=== PATIENT | male | born 1955 | race Caucasian/White ===

== ENCOUNTER 2016-09-27 10:56 | Emergency (ER) | payer OTHER, MEDICARE ==
[~2016-09-27] VITALS: Ht 185.4 cm; Wt 102.1 kg
--- NOTE | 2016-09-27 11:08 | ED GI/GU/ABDOMINAL COMPLAINT ---
History of Present Illness General Chief Complaint: Abdominal Pain/Flank Pain Stated Complaint: ABD PAIN Source: patient, family, old records Exam Limitations: no limitations Vital Signs & Intake/Output Vital Signs & Intake/Output ED Intake and Output 09/28 0000 09/27 1200 Intake Total 1000 Output Total Balance 1000 Intake, IV 1000 Patient 225 lb Weight Weight Reported by Patient Measurement Method Allergies Coded Allergies: NO KNOWN ALLERGIES (01/10/11) Triage Note: PT TO ED, SENT IN BY URGENT CARE FOR C/O ABD PAIN SINCE SUNDAY. PT SENT IN TO [facility]. C/O NAUSEA, NO VOMITING SINCE SUNDAY. DENIES S/S. H/O DIVERTICULITIS. Triage Nurses Notes Reviewed? yes Onset: Abrupt Duration: day(s): (2), constant Timing: recent history Quality/Severity: aching, moderate, sharpness Severity Numbers: 7 Location: right upper quadrant Radiation: back Activities at Onset: none Prior Abdominal Problems: none Modifying Factors: Improves With: other (belching). Associated Symptoms: nausea/vomiting HPI: 61-year-old male with history of diverticulitis hypertension chronic back pain presents to the ER for evaluation later today history of constant not out of 10 deep moderate sharp right upper quadrant pain as read to the right side his back. He states his symptoms came on after eating associated 1 episode of vomiting when the symptoms first began. He states she's had nausea since. No chest pain no shortness of breath. Patient has history of diverticulitis however states feels different. No history of abdominal surgeries. He's been taking Pepto-Bismol without relief. The pain is improved with belching. No changes bowel movements no black or bloody stools no hematemesis. He is a social alcoholic drinker. He denies recent use he denies smoking. No pain with inspiration. (DIVYA ANDERSEN) Reconcile Medications Anastrozole 1 MG TABLET 1 TAB PO DAILY CONTROL HORMONES (Reported) Calcium Carbonate/Vitamin D3 (Calcium 500 + D Tablet) 500 MG-400 TABLET 1 TAB PO DAILY CALCIUM SUPPLEMENT (Reported) Cholecalciferol (Vitamin D3) 1,000 UNIT TABLET 1 TAB PO DAILY VITAMIN SUPPORT (Reported) Ciprofloxacin HCl (Cipro) 500 MG TABLET 1 TAB PO BID DIVERTICULITIS Cyanocobalamin (Vitamin B-12) 1,000 MCG TABLET 1 TAB PO DAILY VITAMIN SUPPORT (Reported) Folic Acid 1 MG TABLET 1 TAB PO DAILY VITAMIN SUPPORT (Reported) Lisinopril 5 MG TABLET 1 TAB PO DAILY BP (Reported) Meloxicam 15 MG TABLET 1 TAB PO DAILY PAIN (Reported) Metronidazole (Flagyl) 500 MG TABLET 1 TAB PO TID DIVERTICULITIS Amoret-3 Fatty Acids/Fish Oil (Fish Oil 1,000 MG Capsule) 340 MG-1,000 MG CAPSULE 1 CAP PO DAILY SUPPLEMENT (Reported) Ondansetron (Zofran Odt) 4 MG TAB.RAPDIS 1 TAB SL TID PRN NAUSEA Oxycodone HCl/Acetaminophen (Oxycodone-Acetaminophen 5-325) 5 MG-325 MG TABLET 1 TAB PO PRN PAIN (Reported) Testosterone Cypionate 200 MG/ML VIAL 0.8 ML IM Q2W HRT (Reported) (PEPE SOSA MD) Past History Travel History Traveled to [place] past 21 day No Medical History Any Pertinent Medical History? see below for history Cardiovascular: hypertension Gastrointestinal: diverticulitis Surgical History Surgical History: non-contributory Psychosocial History What is your primary language Faroese Tobacco Use: Quit >30 days ago ETOH Use: occasional use Illicit Drug Use: denies illicit drug use Family History Hx Contributory? No (DIVYA ANDERSEN) Review of Systems Review of Systems Constitutional: Reports: see HPI. All Other Systems: Reviewed and Negative Comments Review of systems: See HPI, All other systems negative. Constitutional, no chills no fever, no malaise HEENT: No visual changes no sore throat no congestion Cardiovascular: No chest pain , no palpitation Skin: no rashes, no change in skin Respiratory: No dyspnea no cough no sputum no hemoptysis GI: nausea vomiting, no diarrhea, no bloating/constipation : No dysuria No hematuria, no frequency Muscle skeletal: No joint pain, no joint swelling, no back pain, no neck pain, Neurologic: No numbness no confusion, no headache Psych: No stress Heme/endocrine: No bruising Immunology: No lymphadenopathy (DIVYA ANDERSEN) Physical Exam Physical Exam General Appearance: well developed/nourished, alert, awake Gastrointestinal: soft, tenderness Comments: Well-developed well-nourished person in no acute distress HEENT: Normal EENT exam; PERRL, EOMI, HEAD is atraumatic. moist mucous membranes. Neck: Supple, no lymphadenopathy, normal range of motion Back: Nontender, no CVA tenderness. Full range of motion Cardiovascular: Regular rate and rhythms no murmurs rubs Respiratory: Chest nontender.There were no bony deformities, no asymmetry. No respiratory distress. Patient speaking in full complete sentences. Breath sounds clear to auscultation bilaterally: NO W/R/R Abdomen: Soft, ruq tender nondistended, no appreciable organomegaly. Normal bowel sounds. No rebound/guarding, No appreciable enlargement of the abdominal aorta, No ascites. Extremity: No edema, full range of motion of extremities Neuro: Alert oriented x3, motor sensory normal, There were no obvious focal neurologic abnormalities. Skin: No appreciable rash on exposed skin, skin is warm and dry. no jaundice Psych: Mood and affect is normal, memory and judgment is normal. Core Measures ACS in differential dx? Yes Severe Sepsis Present: No Septic Shock Present: No (BALTAZAR PITTMAN,DIVYA) Progress Differential Diagnosis: AAA, AMI, appendicitis, biliary colic, bowel obstruction , colon cancer, cholecystitis, diverticulitis, gastritis, hepatitis, hernia, ischemic bowel, inflamm bowel dis, pancreatitis, peptic ulcer, PUD/GERD, perforated viscous, pyelonephritis, SBO Plan of Care: Orders Procedure Date/time Status Add-on Test (ER Only) 09/27 1502 Active DIRECT BILIRUBIN 09/27 1225 Complete EKG 09/27 1136 Active TROPONIN LEVEL 09/27 1128 Complete LIPASE 09/27 1128 Complete COMPREHENSIVE METABOLIC PANEL 09/27 1128 Complete CBC WITHOUT DIFFERENTIAL 09/27 1128 Complete AMYLASE 09/27 1128 Complete Laboratory Tests 09/27/16 1225: Anion Gap 13, Estimated GFR > 60, BUN/Creatinine Ratio 12.0, Glucose 110 H, Calcium 9.4, Total Bilirubin 1.8 H, Direct Bilirubin 0.6 H, AST 29, ALT 56, Alkaline Phosphatase 49, Troponin I < 0.01, Total Protein 7.7, Albumin 4.6, Globulin 3.1, Albumin/Globulin Ratio 1.5, Amylase 38, Lipase 65, CBC w Diff NO MAN DIFF REQ, RBC 4.42 L, MCV 90.0, MCH 31.7 H, RDW 13.6, MPV 7.3 L, Gran % 83.5 H, Lymphocytes % 8.6 L, Monocytes % 7.6, Eosinophils % 0.1, Basophils % 0.2, Absolute Granulocytes 9.7 H, Absolute Lymphocytes 1.0 L, Absolute Monocytes 0.9 H, Absolute Eosinophils 0, Absolute Basophils 0, PUBS MCHC 35.2 Labs ordered patient medicated with Toradol Pepcid Zofran IV IV fluids ultrasound ordered case discussed with Dr. sosa Patient reports no improvement in symptoms with Toradol morphine 6 MGIV [address] D[address] with DR JARVIS [facility] LABS AND US, advised to get CAT scan without contrast I discussed with the patient at length all of their results. The patient states during his 3 previous episodes of diverticulitis he has been discharged home he is never required admission which she states he feels he does not need today. Prescription for Cipro Flagyl Zofran provided. I had an extensive conversation regarding need for close follow up with their primary care physician this week as well as return precautions. I answered all of their questions, they feel comfortable with the plan and follow-up care. I discussed the medications that they will receive with the patient. I gave them signs and symptoms that could indicate an adverse reaction. I have advised them to limit their activities until they can see how they respond to the medication. (BALTAZAR PITTMAN,DIVYA) Diagnostic Imaging: Viewed by Me: CT Scan, Ultrasound. Discussed w/RAD: CT Scan, Ultrasound. Radiology Impression: PATIENT: DELMY LIM PRESENT AGE: 61 PATIENT ACCOUNT NO: [id number] : 56 LOCATION: [facility] ORDERING PHYSICIAN: DIVYA PITTMAN SERVICE DATE: 09/27/160202 EXAM TYPE: CAT - CT ABD & PELVIS W/O IV CONTRAS EXAMINATION: CT ABDOMEN AND PELVIS WITHOUT CONTRAST CLINICAL INFORMATION: Right upper quadrant abdominal pain radiating into the back. COMPARISON: Abdomen ultrasound of 09/27/2016. Abdomen CT of 11/15/2009. TECHNIQUE: Multidetector volumetric imaging was performed from the superior aspect of the liver through the pubic symphysis. Sagittal and coronal reformatted images were obtained on the technologist's workstation. DLP: 802.96 mGy-cm FINDINGS: LUNG BASES: Small, 2 mm calcified granuloma in the lateral segment of the right middle lobe. The benign, 0.4 cm noncalcified nodule of the right lower lobe remains stable compared to 11/15/2009 (image 103, series 3). Mild atelectasis within lower lobes. LIVER, GALLBLADDER, AND BILIARY TREE: Diffuse hepatic steatosis with relative sparing superior to the gallbladder fossa. The gallbladder is moderately distended. There is no overt edema of the gallbladder wall. Small, 0.2 cm calcified stone is present in the region of the gallbladder neck. No intrahepatic or extra hepatic bile duct dilatation. PANCREAS: Unremarkable. SPLEEN: Unremarkable. ADRENAL GLANDS: Unremarkable. KIDNEYS AND URETERS: Kidneys are normal in size and have normal cortical attenuation. There is a 3 mm calyceal stone of the interpolar left kidney. The ureters are unremarkable. BLADDER: Unremarkable. GASTROINTESTINAL TRACT: Stomach is unremarkable. There are diverticula of the third portion of the duodenum. There is pancolonic diverticulosis as well as mild colonic wall thickening at the hepatic flexure with surrounding pericolonic fat stranding. The colon appears to be the source of inflammation rather than the adjacent gallbladder. The appendix is normal. No ascites or pneumoperitoneum. ABDOMINAL WALL: No significant findings in the abdominal wall. There has been placement of mesh along the lower abdominal wall and covering the inguinal canals. LYMPH NODES: No pathologic sized lymph nodes within the abdomen or pelvis. VASCULAR: Mild atherosclerosis of the abdominal aorta without aneurysm. No retroperitoneal hematoma. PELVIC VISCERA: Prostate gland is normal in size. No pelvic free fluid. OSSEOUS STRUCTURES: Intact posterior spinal fusion hardware from L1 to L3. Old compression fractures of L2 and L5 vertebral bodies. The T12 compression fracture with approximately 50% anterior height loss is new compared to 2009; however, there is no acute fracture lucency within the compressed vertebral body. Chondrocalcinosis of the degenerated lumbar discs. IMPRESSION: 1. Acute diverticulitis of the hepatic flexure of the colon. 2. Cholelithiasis without convincing evidence for acute cholecystitis. The fat stranding adjacent to the gallbladder appears to be arising from the hepatic flexure of the colon. 3. Diffuse hepatic steatosis with focal region of sparing located superior to the gallbladder fossa. 4. Small, 3 mm calculus in the interpolar region of the left kidney. 5. T12 compression fracture is likely subacute or old (but is new compared to 11/15/2009). DICTATED BY: JENNIFER MILES MD DATE/TIME DICTATED:08/11 ROCK DUST SPRAYER:AZAM DATE/TIME TRANSCRIBED:09/27/161419 CONFIDENTIAL, DO NOT COPY WITHOUT APPROPRIATE AUTHORIZATION. <Electronically signed in Other Vendor System> SIGNED BY: JENNIFER MILES MD 09/27/16 1439, PATIENT: DELMY LIM PRESENT AGE: 61 PATIENT ACCOUNT NO: [id number] : 56 LOCATION: [facility] ORDERING PHYSICIAN: DIVYA PITTMAN SERVICE DATE: 09/27/166 EXAM TYPE: US - US-LIMITED ABDOMEN EXAMINATION: US ABDOMEN LIMITED CLINICAL INFORMATION: Right upper quadrant abdominal pain, nausea and vomiting.. COMPARISON: Selected images CT abdomen and pelvis without contrast 10/15/2009 and 11/15/2009. TECHNIQUE: Real-time imaging of the right upper quadrant abdominal viscera. The study was technically limited as the patient could not fully recline for the examination. FINDINGS: PANCREAS: The pancreas is obscured by bowel gas. LIVER: The liver is enlarged measuring 21.2 cm in length. The liver is diffusely echogenic. A hypoechoic region is seen adjacent to the gallbladder measuring 1.7 x 2.1 x 1.8 cm. This was not obvious on prior CT study from 2009. This statistically most likely to reflect focal fatty sparing. No additional liver lesions are seen. No dilatation of the intrahepatic bile ducts. GALLBLADDER: The gallbladder is distended measuring 9.7 x 4.1 x 4.6 cm in size. The gallbladder was also distended on a prior CT from and 11/15/2009. No focal tenderness over the gallbladder. No cholelithiasis or significant echogenic bile is identified. The gallbladder wall measures 5 mm which is mildly thickened. No evidence of pericholecystic fluid. COMMON BILE DUCT: Normal in caliber measuring 0.6 cm in diameter. RIGHT KIDNEY: Normal. No hydronephrosis. No renal calculi or focal parenchymal lesions. The kidney measures 13.0 cm in maximum dimension. FREE FLUID: None. IMPRESSION: 1. Enlarged echogenic liver consistent with hepatic steatosis. The hypoechoic masslike region adjacent to the gallbladder measuring 2.1 cm is most likely reflective of hepatic steatosis. This could be clarified within MRI of the abdomen for further evaluation. 2. The gallbladder is distended. This is not a significant change from prior imaging. The gallbladder wall thickness is at the upper limits of normal in size but there is no evidence of pericholecystic fluid. HIDA scan may be of further value if the patient has continued right upper quadrant pain. 3. The right kidney shows no evidence of hydronephrosis. DICTATED BY: WHITNEY SHAW MD DATE/TIME DICTATED:09/27/161219 ROCK DUST SPRAYER:AZAM DATE/TIME TRANSCRIBED:09/27/161219 CONFIDENTIAL, DO NOT COPY WITHOUT APPROPRIATE AUTHORIZATION. <Electronically signed in Other Vendor System> SIGNED BY: WHITNEY SHAW MD 09/27/16 1237 Initial ED EKG: normal intervals, normal p-waves, normal QRS complex, normal sinus rhythm () Prior EKG: unchanged (2010) Rhythm Strip: normal sinus rhythm (DIVYA ANDERSEN) Departure Departure Time of Disposition: 1450 Disposition: HOME OR SELF CARE Condition: Stable Clinical Impression Primary Impression: Acute diverticulitis Referrals: SHU BURGESS,MENDOZA Andino (PCP/Family) Additional Instructions: CIPRO AND FLAGYL DIRECTED, ZOFRAN IF NEEDED FOR NAUSEA. BLAND DIET, CLEAR LIQUIDS. FOLLOW UP WITH YOUR PMD, RETURN IMMEDIATELY IF YOUR SYMPTOMS PERSIST, YOU DEVELOP FEVER, CHILLS OR ANY CONCERNS Departure Forms: Customer Survey General Discharge Information Prescriptions: Current Visit Scripts Ondansetron (Zofran Odt) 1 TAB SL TID PRN NAUSEA #10 TAB Ciprofloxacin HCl (Cipro) 1 TAB PO BID #14 TAB Metronidazole (Flagyl) 1 TAB PO TID #21 TAB (DIVYA ANDERSEN) PA/WELL SERVICE FLOOR WORKER Co-Sign Statement Statement: ED Attending supervision documentation- x I saw and evaluated the patient. I have also reviewed all the pertinent lab results and diagnostic results. I agree with the findings and the plan of care as documented in the PA's/WELL SERVICE FLOOR WORKER's documentation. [] I have reviewed the ED Record and agree with the PA's/WELL SERVICE FLOOR WORKER's documentation. [] Additions or exceptions (if any) to the PAs/WELL SERVICE FLOOR WORKER's note and plan are summarized below: [] (SHEILA BURGESS,PEPE)
[2016-09-27] MEDS ORDERED: LISINOPRIL5 M1 PO (12:07)
[2016-09-27] MEDS ORDERED: OXYCODONE-ACET1 EACH PO (12:07)
[2016-09-27] MEDS ORDERED: ANASTROZOLE1 M1 PO (12:08)
[2016-09-27] MEDS ORDERED: MELOXICAM15 M1 PO (12:08)
[2016-09-27] MEDS ORDERED: VITAMIN B-121000 MC3 PO (12:08)
[2016-09-27] MEDS ORDERED: FOLIC ACID1 M1 PO (12:08)
[2016-09-27] MEDS ORDERED: VITAMIN D31000 UNI2 PO (12:09)
[2016-09-27] MEDS ORDERED: FISH OIL 1,0001 EACH PO (12:09)
--- NOTE | 2016-09-27 12:37 | ULTRASOUND REPORT ---
EXAMINATION: US ABDOMEN LIMITED CLINICAL INFORMATION: Right upper quadrant abdominal pain, nausea and vomiting.. COMPARISON: Selected images CT abdomen and pelvis without contrast 10/15/2009 and 11/15/2009. TECHNIQUE: Real-time imaging of the right upper quadrant abdominal viscera. The study was technically limited as the patient could not fully recline for the examination. FINDINGS: PANCREAS: The pancreas is obscured by bowel gas. LIVER: The liver is enlarged measuring 21.2 cm in length. The liver is diffusely echogenic. A hypoechoic region is seen adjacent to the gallbladder measuring 1.7 x 2.1 x 1.8 cm. This was not obvious on prior CT study from 2009. This statistically most likely to reflect focal fatty sparing. No additional liver lesions are seen. No dilatation of the intrahepatic bile ducts. GALLBLADDER: The gallbladder is distended measuring 9.7 x 4.1 x 4.6 cm in size. The gallbladder was also distended on a prior CT from 10/20/2009 and 11/15/2009. No focal tenderness over the gallbladder. No cholelithiasis or significant echogenic bile is identified. The gallbladder wall measures 5 mm which is mildly thickened. No evidence of pericholecystic fluid. COMMON BILE DUCT: Normal in caliber measuring 0.6 cm in diameter. RIGHT KIDNEY: Normal. No hydronephrosis. No renal calculi or focal parenchymal lesions. The kidney measures 13.0 cm in maximum dimension. FREE FLUID: None. IMPRESSION: 1. Enlarged echogenic liver consistent with hepatic steatosis. The hypoechoic masslike region adjacent to the gallbladder measuring 2.1 cm is most likely reflective of hepatic steatosis. This could be clarified within MRI of the abdomen for further evaluation. 2. The gallbladder is distended. This is not a significant change from prior imaging. The gallbladder wall thickness is at the upper limits of normal in size but there is no evidence of pericholecystic fluid. HIDA scan may be of further value if the patient has continued right upper quadrant pain. 3. The right kidney shows no evidence of hydronephrosis.
[2016-09-27 12:46] LABS: ABSOLUTE BASOPHIL COUNT 0 /CUMM (0.0-0.2); ABSOLUTE EOSINOPHIL COUNT 0 /CUMM (0.0-0.7); ABSOLUTE GRANULOCYTE CT 9.7 /CUMM (1.4-6.5); ABSOLUTE MONOCYTE COUNT 0.9 /CUMM (0.10-0.60); BASOPHIL % 0.2 % (0.0-2.0); EOSINOPHIL % 0.1 % (0-5); HEMATOCRIT 39.8 % (42-52); MEAN CORPUSCULAR HGB 31.7 PG (27.0-31.0); MEAN CORPUSCULAR HGB CONC 35.2 G/DL (33.0-37.0); MEAN PLATELET VOLUME 7.3 FL (7.4-10.4); PLATELET COUNT 191 /CUMM (130-400); RBC DISTRIBUTION WIDTH 13.6 % (11.5-14.5); RED BLOOD CELL CT 4.42 /CUMM (4.70-6.10); WHITE BLOOD CELL COUNT 11.7 /CUMM (4.8-10.8)
[2016-09-27 12:55] LABS: GRANULOCYTE % 83.5 % (42.2-75.2)
--- NOTE | 2016-09-27 14:39 | CT SCAN REPORT ---
EXAMINATION: CT ABDOMEN AND PELVIS WITHOUT CONTRAST CLINICAL INFORMATION: Right upper quadrant abdominal pain radiating into the back. COMPARISON: Abdomen ultrasound of 09/27/2016. Abdomen CT of 11/15/2009. TECHNIQUE: Multidetector volumetric imaging was performed from the superior aspect of the liver through the pubic symphysis. Sagittal and coronal reformatted images were obtained on the technologist's workstation. DLP: 802.96 mGy-cm FINDINGS: LUNG BASES: Small, 2 mm calcified granuloma in the lateral segment of the right middle lobe. The benign, 0.4 cm noncalcified nodule of the right lower lobe remains stable compared to 11/15/2009 (image 103, series 3). Mild atelectasis within lower lobes. LIVER, GALLBLADDER, AND BILIARY TREE: Diffuse hepatic steatosis with relative sparing superior to the gallbladder fossa. The gallbladder is moderately distended. There is no overt edema of the gallbladder wall. Small, 0.2 cm calcified stone is present in the region of the gallbladder neck. No intrahepatic or extra hepatic bile duct dilatation. PANCREAS: Unremarkable. SPLEEN: Unremarkable. ADRENAL GLANDS: Unremarkable. KIDNEYS AND URETERS: Kidneys are normal in size and have normal cortical attenuation. There is a 3 mm calyceal stone of the interpolar left kidney. The ureters are unremarkable. BLADDER: Unremarkable. GASTROINTESTINAL TRACT: Stomach is unremarkable. There are diverticula of the third portion of the duodenum. There is pancolonic diverticulosis as well as mild colonic wall thickening at the hepatic flexure with surrounding pericolonic fat stranding. The colon appears to be the source of inflammation rather than the adjacent gallbladder. The appendix is normal. No ascites or pneumoperitoneum. ABDOMINAL WALL: No significant findings in the abdominal wall. There has been placement of mesh along the lower abdominal wall and covering the inguinal canals. LYMPH NODES: No pathologic sized lymph nodes within the abdomen or pelvis. VASCULAR: Mild atherosclerosis of the abdominal aorta without aneurysm. No retroperitoneal hematoma. PELVIC VISCERA: Prostate gland is normal in size. No pelvic free fluid. OSSEOUS STRUCTURES: Intact posterior spinal fusion hardware from L1 to L3. Old compression fractures of L2 and L5 vertebral bodies. The T12 compression fracture with approximately 50% anterior height loss is new compared to 11/15/2009; however, there is no acute fracture lucency within the compressed vertebral body. Chondrocalcinosis of the degenerated lumbar discs. IMPRESSION: 1. Acute diverticulitis of the hepatic flexure of the colon. 2. Cholelithiasis without convincing evidence for acute cholecystitis. The fat stranding adjacent to the gallbladder appears to be arising from the hepatic flexure of the colon. 3. Diffuse hepatic steatosis with focal region of sparing located superior to the gallbladder fossa. 4. Small, 3 mm calculus in the interpolar region of the left kidney. 5. T12 compression fracture is likely subacute or old (but is new compared to 11/15/2009).
[2016-09-27] MEDS ORDERED: FLAGYL500 MG PO (14:55)
[2016-09-27] MEDS ORDERED: ZOFRAN ODT4 M1 SL (14:55)
[2016-09-27] MEDS ORDERED: CIPRO500 M1 PO (14:55)
[2016-09-27 15:11] VITALS: BP 135/74
[2016-09-28] MEDS ORDERED: TESTOSTERO200 MG/1 M IM (17:08)
[2016-09-28] MEDS ORDERED: CALCIUM 500 +1 EAC5 PO (17:10)
== END 2016-09-27 15:26 ==
LOC: ERH 10:56
PROVIDERS: Physician Assistant Medical
DX: K57.92 Diverticulitis of intestine, part unspecified, without perforation or abscess without bleeding (principal); I10 Essential (primary) hypertension; Z87.891 Personal history of nicotine dependence
CPT/HCPCS: 74176; 93005; 93010; 96374; 96375; J1885; J2405

== ENCOUNTER 2016-09-28 16:40 | Inpatient (IN) | payer OTHER, MEDICARE ==
[~2016-09-28] VITALS: Ht 185.4 cm; Wt 101.6 kg
[~2016-09-28 16:40] MED LIST: ANASTROZOLE1 M1 PO; CIPRO500 M1 PO; FISH OIL 1,0001 EACH PO; FLAGYL500 MG PO; FOLIC ACID1 M1 PO; LISINOPRIL5 M1 PO; MELOXICAM15 M1 PO; OXYCODONE-ACET1 EACH PO; VITAMIN B-121000 MC3 PO; VITAMIN D31000 UNI2 PO; ZOFRAN ODT4 M1 SL
--- NOTE | 2016-09-28 16:52 | ED GI/GU/ABDOMINAL COMPLAINT ---
History of Present Illness General Chief Complaint: Abdominal Pain/Flank Pain Stated Complaint: SEEN YESTERDAY FOR ABD PAIN/ RECURRENT DIVERTICULI Source: patient, old records Exam Limitations: no limitations Vital Signs & Intake/Output Vital Signs & Intake/Output Vital Signs Date Time Temp Pulse Resp B/P B/P Pulse O2 O2 Flow FiO2 Mean Ox Delivery Rate 09/29 1915 97.8 70 20 122/71 95 Room Air 09/28 1810 101.1 09/28 1750 99 Room Air 09/28 1646 101.1 94 16 159/92 93 Room Air Allergies Coded Allergies: NO KNOWN ALLERGIES (01/10/11) Reconcile Medications Anastrozole 1 MG TABLET 1 TAB PO DAILY CONTROL HORMONES (Reported) Calcium Carbonate/Vitamin D3 (Calcium 500 + D Tablet) 500 MG-400 TABLET 1 TAB PO DAILY CALCIUM SUPPLEMENT (Reported) Cholecalciferol (Vitamin D3) 1,000 UNIT TABLET 1 TAB PO DAILY VITAMIN SUPPORT (Reported) Ciprofloxacin HCl (Cipro) 500 MG TABLET 1 TAB PO BID DIVERTICULITIS Cyanocobalamin (Vitamin B-12) 1,000 MCG TABLET 1 TAB PO DAILY VITAMIN SUPPORT (Reported) Folic Acid 1 MG TABLET 1 TAB PO DAILY VITAMIN SUPPORT (Reported) Lisinopril 5 MG TABLET 1 TAB PO DAILY BP (Reported) Meloxicam 15 MG TABLET 1 TAB PO DAILY PAIN (Reported) Metronidazole (Flagyl) 500 MG TABLET 1 TAB PO TID DIVERTICULITIS [place]-3 Fatty Acids/Fish Oil (Fish Oil 1,000 MG Capsule) 340 MG-1,000 MG CAPSULE 1 CAP PO DAILY SUPPLEMENT (Reported) Ondansetron (Zofran Odt) 4 MG TAB.RAPDIS 1 TAB SL TID PRN NAUSEA Oxycodone HCl/Acetaminophen (Oxycodone-Acetaminophen 5-325) 5 MG-325 MG TABLET 1 TAB PO PRN PAIN (Reported) Testosterone Cypionate 200 MG/ML VIAL 0.8 ML IM Q2W HRT (Reported) Triage Note: PT SEEN YESTERDAY DIAGNOSED WITH DIVERTICULITIS PLACED ON FLAGYL AND CIPRO AND TODAY HER ARRIVES WITH C/O FEVER CHILLS. Triage Nurses Notes Reviewed? yes HPI: Patient is a 61-year-old male presents complaining of worsening diverticulitis. Right-sided abdominal pain onset on Sunday. Patient was seen in the emergency department yesterday, had CT scans, blood work, ultrasound was diagnosed with diverticulitis. Patient was discharged on ciprofloxacin and metronidazole and Percocet. Patient reports that the Percocet has not been significantly helping with his pain. Today patient developed fevers. Associated malaise and generalized weakness. Patient had a bowel movement this morning which was normal. Patient denies vomiting or urinary symptoms. (GABRIELA ZUNIGA) Past History Travel History Traveled to [place] past 21 day No Medical History Any Pertinent Medical History? see below for history Cardiovascular: hypertension Gastrointestinal: diverticulitis Surgical History Surgical History: non-contributory Psychosocial History What is your primary language Sami Tobacco Use: Quit >30 days ago ETOH Use: occasional use Illicit Drug Use: denies illicit drug use Family History Hx Contributory? No (GABRIELA ZUNIGA) Review of Systems Review of Systems Constitutional: Reports: chills, fever, malaise, weakness. EENTM: Reports: no symptoms. Respiratory: Denies: cough, short of breath. Cardiovascular: Denies: chest pain. GI: Reports: see HPI. Genitourinary: Reports: no symptoms. Musculoskeletal: Reports: back pain. Skin: Reports: no symptoms. Neurological/Psychological: Reports: no symptoms. Hematologic/Endocrine: Reports: no symptoms. Immunologic/Allergic: Reports: no symptoms. (GABRIELA ZUNIGA) Physical Exam Physical Exam General Appearance: well developed/nourished, alert, awake Head: atraumatic, normal appearance Eyes: Bilateral: normal appearance, PERRL, EOMI. Ears, Nose, Throat, Mouth: hearing grossly normal, moist mucous membrane Neck: normal inspection, supple, full range of motion Respiratory: normal breath sounds, chest non-tender, no respiratory distress, lungs clear Cardiovascular: regular rate/rhythm Gastrointestinal: normal bowel sounds, soft, right upper abdominal tenderness with guarding. Negative McBurney's point tenderness Back: normal inspection, normal range of motion, no vertebral tenderness, no CVA tenderness Extremities: normal range of motion Neurologic/Psych: no motor/sensory deficits, awake, alert, oriented x 3, normal gait, normal mood/affect Skin: intact, normal color, warm/dry Core Measures ACS in differential dx? No Severe Sepsis Present: No Septic Shock Present: No (GABRIELA ZUNIGA) Progress Differential Diagnosis: cholecystitis, diverticulitis, ischemic bowel, pancreatitis, perforated viscous, intra-abdominal abscess, cholangitis Plan of Care: Orders Procedure Date/time Status Nothing by Mouth 09/29 B Active HIDA SCAN 09/29 0800 Active CBC WITHOUT DIFFERENTIAL 09/29 0600 Active BASIC ELECTROLYTES PLUS BUN&CR 09/29 0600 Active Clear Liquid Diet 09/28 D Complete LACTIC ACID 09/[address] ABD & PELVIS W/O IV CONTRAS 09/28 1917 Active Add-on Test (ER Only) 09/28 1846 Active Pathway - chart 09/28 1807 Active Saline Lock 09/28 180 Active Pathway - chart 09/28 180 Active House Staff 09/28 1802 Active Patient Data 09/28 1735 Active ED Holding Orders 09/28 1732 Active Admit to inpatient 09/28 1732 Active Vital Signs 09/28 1732 Active Code Status 09/28 1732 Active LIPASE 09/28 1722 Active DIRECT BILIRUBIN 09/28 1722 Active BLOOD CULTURE 09/28 1704 Active LACTIC ACID 09/28 1704 Active COMPREHENSIVE METABOLIC PANEL 09/28 1704 Active CBC WITHOUT DIFFERENTIAL 09/28 1704 Complete VTE Mechanical Prophylaxis 09/28 UNK Active Heat/Cold Therapy 09/28 UNK Active Current Medications Sig/Fanny Start time Last Medication Dose Stop Time Status Admin Ceftriaxone Sodium 1,000 MG DAILY 09/29 1000 UNVr (Rocephin) Metronidazole 500 MG IQ8 09/29 0000 UNVr (Flagyl) N/A 1 UNIT (No Carrier) Heparin Sodium 5,000 UNIT Q8 09/28 2200 UNVr (Porcine) Polyethylene Glycol 17 GM AT BEDTIME 09/28 2200 UNVr (Miralax) Senna/Docusate Sodium 2 TAB AT BEDTIME 09/28 2200 UNVr (Senokot S) Acetaminophen 1,000 MG Q8P PRN 09/28 1815 UNVr (Ofirmev) Diphenhydramine HCl 25 MG Q6P PRN 09/28 1815 UNVr (Benadryl) Hydromorphone HCl 0.5 MG Q3P PRN 09/28 181 UNVr (Dilaudid) Ondansetron HCl 4 MG Q6P PRN 09/28 181 UNVr (Zofran) Sodium Chloride 1,000 ML .Q10H 09/28 1800 UNVr (Normal Saline 0.9%) Laboratory Tests 09/28/16 1722: Anion Gap 14, Estimated GFR > 60, BUN/Creatinine Ratio 10.0, Glucose 134 H, Lactic Acid 0.7, Calcium 8.9, Total Bilirubin 3.0 H, Direct Bilirubin Pending, AST 80 H, ALT 101 H, Alkaline Phosphatase 63, Total Protein 7.4, Albumin 4.3, Globulin 3.1, Albumin/Globulin Ratio 1.4, Lipase Pending, CBC w Diff NO MAN DIFF REQ, RBC 4.26 L, MCV 91.0, MCH 31.7 H, RDW 13.5, MPV 7.4, Gran % 82.6 H, Lymphocytes % 6.1 L, Monocytes % 10.7 H, Eosinophils % 0.4, Basophils % 0.2, Absolute Granulocytes 9.9 H, Absolute Lymphocytes 0.7 L, Absolute Monocytes 1.3 H, Absolute Eosinophils 0.1, Absolute Basophils 0, PUBS MCHC 34.8 Microbiology 09/28 1754 BLOOD: Blood Culture - RECD 09/28 1720 BLOOD: Blood Culture - RECD Results from yesterday reviewed. Plan for repeat labs, IV antibiotics, IV fluids, pain control. If patient remains hemodynamically stable and nontoxic appearing then plan to defer repeat imaging as patient had CT scan and ultrasound yesterday. 09/28/2016 5:25:29 PM: Discussed with Dr. Corcoran. Discussed with Dr. Scott for admission. Bilirubin elevated, no cholelithiasis on ultrasound yesterday. House staff ordered HIDA scan for patient for further evaluation. (GABRIELA ZUNIGA) Initial ED EKG: none (GABRIELA ZUNIGA) Departure Departure Disposition: HOME OR SELF CARE Condition: Stable Clinical Impression Primary Impression: Acute diverticulitis Secondary Impressions: Elevated bilirubin Referrals: SHU BURGESS,MENDOZA Andino (PCP/Family) Departure Forms: Customer Survey General Discharge Information Admission Note Spoke With: RAMO SCOTT MD Documentation of Exam: Documentation of any treatments & extenuating circumstances including Concerns Regarding Discharge (functional status, medication knowledge or non-compliance, living conditions, etc.) that warrant an admission rather than observation: IV antibiotics, IV fluids, serial abdominal exams. If patient is not clinically improving by tomorrow(or at any time shows deterioration in clinical status) then would recommend repeat CT scan. Possible GI consultation, possible surgical consultation depending on clinical condition. (GABRIELA ZUNIGA) PA/SENIOR TAX ACCOUNTANT Co-Sign Statement Statement: ED Attending supervision documentation- [] I saw and evaluated the patient. I have also reviewed all the pertinent lab results and diagnostic results. I agree with the findings and the plan of care as documented in the PA's/SENIOR TAX ACCOUNTANT's documentation. [X] I have reviewed the ED Record and agree with the PA's/SENIOR TAX ACCOUNTANT's documentation. [] Additions or exceptions (if any) to the PAs/SENIOR TAX ACCOUNTANT's note and plan are summarized below: [] (TUYET CORCORAN DO
[2016-09-28] MEDS ORDERED: TESTOSTERO200 MG/1 M IM (17:08)
[2016-09-28] MEDS ORDERED: CALCIUM 500 +1 EAC5 PO (17:10)
[2016-09-28 17:33] LABS: ABSOLUTE BASOPHIL COUNT 0 /CUMM (0.0-0.2); ABSOLUTE EOSINOPHIL COUNT 0.1 /CUMM (0.0-0.7); ABSOLUTE GRANULOCYTE CT 9.9 /CUMM (1.4-6.5); ABSOLUTE LYMPH COUNT 0.7 /CUMM (1.2-3.4); ABSOLUTE MONOCYTE COUNT 1.3 /CUMM (0.10-0.60); BASOPHIL % 0.2 % (0.0-2.0); EOSINOPHIL % 0.4 % (0-5); GRANULOCYTE % 82.6 % (42.2-75.2); HEMATOCRIT 38.8 % (42-52); MEAN CORPUSCULAR HGB 31.7 PG (27.0-31.0); MEAN CORPUSCULAR HGB CONC 34.8 G/DL (33.0-37.0); MEAN PLATELET VOLUME 7.4 FL (7.4-10.4); PLATELET COUNT 181 /CUMM (130-400); RBC DISTRIBUTION WIDTH 13.5 % (11.5-14.5); RED BLOOD CELL CT 4.26 /CUMM (4.70-6.10)
--- NOTE | 2016-09-28 18:47 | RADIOLOGY REPORT ---
EXAMINATION: XR ABDOMEN CLINICAL INDICATION: Diverticulitis. Assess for intra-abdominal free air. COMPARISON: CT abdomen and pelvis 09/27/2016. TECHNIQUE: AP view of the abdomen. FINDINGS: Nonspecific bowel gas pattern, without findings indicative of small bowel obstruction or ileus. Limited evaluation for free intra-abdominal air given lack of inclusion of the bilateral lung bases. No acute osseous abnormality. No visible destructive osseous lesions. IMPRESSION: Nonspecific bowel gas pattern, without findings indicative of small bowel obstruction or ileus. Limited evaluation for free intraperitoneal air given lack of inclusion of the bilateral lung bases and erect view of the abdomen.
--- NOTE | 2016-09-28 18:59 | History & Physical ---
JIMENEZ BURGESS,MOHSEN 09/28/16 1834: General Information and HPI History of Present Illness: 61 year old man with significant past medical history of diverticulosis/ diverticulitis seen for evaluation of severe abdominal pain with associated headache, fever, chills, nausea, shortness of breath, and vomiting. Patient was seen in the [place] ED yesterday for the same symptoms for which was evaluated with a CT Abd/pelvis and Abdominal ultrasound that identified acute diverticulitis. Patient was discharged to home with oral ciprofloxacin/ metronidazole and percocet. He awoke this morning feeling worse for which he came to the [place] ED for evaluation. Presently he reports 10/10 epigastric/right upper quadrant abdominal pain radiating around his right side to his back with associated symptoms as noted above. He notes one episode of nonbloody bilious vomiting this past sunday and has had decreased oral intake since this time. He has one loose bowel movement today that was brown and nonbloody, but admittedly loose. He denies any recent travel or consumption of raw/undercooked meat; however he does go fishing and consumes what he catches after cooking. Otherwise he denies any blurred/double vision, lightheadedness/dizziness, chest pain, palpitations, cough. Past medical history- diverticulosis/recurrent diverticulitis, low testosterone, osteopenia, chronic back pain s/p repair, bilateral inguinal hernia s/p repair, kidney stones, and hypertension Social History - smoked 4-5 cigars per day and inhaled about 20 years ago now only an occasional smoker, drinks one beer and two shots per day, lives at home with his and dog, currently disabled due to his low back injury, eats a paleo diet of lean meats with little fiber Allergies/Medications Allergies: Coded Allergies: NO KNOWN ALLERGIES (01/10/11) Home Med list Anastrozole 1 MG TABLET 1 TAB PO DAILY CONTROL HORMONES (Reported) Calcium Carbonate/Vitamin D3 (Calcium 500 + D Tablet) 500 MG-400 TABLET 1 TAB PO DAILY CALCIUM SUPPLEMENT (Reported) Cholecalciferol (Vitamin D3) 1,000 UNIT TABLET 1 TAB PO DAILY VITAMIN SUPPORT (Reported) Ciprofloxacin HCl (Cipro) 500 MG TABLET 1 TAB PO BID DIVERTICULITIS Cyanocobalamin (Vitamin B-12) 1,000 MCG TABLET 1 TAB PO DAILY VITAMIN SUPPORT (Reported) Folic Acid 1 MG TABLET 1 TAB PO DAILY VITAMIN SUPPORT (Reported) Lisinopril 5 MG TABLET 1 TAB PO DAILY BP (Reported) Meloxicam 15 MG TABLET 1 TAB PO DAILY PAIN (Reported) Metronidazole (Flagyl) 500 MG TABLET 1 TAB PO TID DIVERTICULITIS Crosby-3 Fatty Acids/Fish Oil (Fish Oil 1,000 MG Capsule) 340 MG-1,000 MG CAPSULE 1 CAP PO DAILY SUPPLEMENT (Reported) Ondansetron (Zofran Odt) 4 MG TAB.RAPDIS 1 TAB SL TID PRN NAUSEA Oxycodone HCl/Acetaminophen (Oxycodone-Acetaminophen 5-325) 5 MG-325 MG TABLET 1 TAB PO PRN PAIN (Reported) Testosterone Cypionate 200 MG/ML VIAL 0.8 ML IM Q2W HRT (Reported) Past History Travel History Traveled to [place] past 21 day No Medical History Cardiovascular: hypertension Gastrointestinal: diverticulitis Renal: Kidney stones Musculoskeletal: chronic back pain, Osteopenia Endocrine: low testosterone Surgical History Surgical History: hernia repair-inguinal, spinal fusion Past Family/Social History Psychosocial History Where do you live? Home Who Do You Live With? spouse Smoking Status: Current Some Day Smoker ETOH Use: occasional use Illicit Drug Use: denies illicit drug use Review of Systems Review of Systems Constitutional: Reports: see HPI. Exam & Diagnostic Data Last 24 Hrs of Vital Signs/I&O Vital Signs Date Time Temp Pulse Resp B/P B/P Pulse O2 O2 Flow FiO2 Mean Ox Delivery Rate 09/28 1916 97.8 70 20 122/71 95 Room Air 09/28 1810 101.1 09/28 1750 99 Room Air 09/28 1646 101.1 94 16 159/92 93 Room Air Physical Exam General Appearance Alert, Oriented X3, Cooperative, No Acute Distress HEENT Atraumatic, EOMI, Mucous Membr. moist/pink Neck Supple Cardiovascular Regular Rate, Normal S1, Normal S2, No Murmurs Lungs Clear to Auscultation, Normal Air Movement Abdomen Normal Bowel Sounds, Soft, No Hepatospenomegaly, No Masses, Diffuse abdominal tenderness with severe RUQ tenderness, weinberg negative, no guarding/ rigidity Neurological Normal Speech, Normal Tone, Cranial Nerves 3-12 NL Extremities No Clubbing, No Cyanosis, No Edema, Normal Pulses, No Tenderness/ Swelling Vascular Normal Pulses, Pulses Symmetrical Last 24 Hrs of Labs/Heath: Laboratory Tests 09/28/16 2004: Lactic Acid Cancelled 09/28/16 1722: Anion Gap 14, Estimated GFR > 60, BUN/Creatinine Ratio 10.0, Glucose 134 H, Lactic Acid 0.7, Calcium 8.9, Total Bilirubin 3.0 H, Direct Bilirubin Pending, AST 80 H, ALT 101 H, Alkaline Phosphatase 63, Total Protein 7.4, Albumin 4.3, Globulin 3.1, Albumin/Globulin Ratio 1.4, Lipase Pending, CBC w Diff NO MAN DIFF REQ, RBC 4.26 L, MCV 91.0, MCH 31.7 H, RDW 13.5, MPV 7.4, Gran % 82.6 H, Lymphocytes % 6.1 L, Monocytes % 10.7 H, Eosinophils % 0.4, Basophils % 0.2, Absolute Granulocytes 9.9 H, Absolute Lymphocytes 0.7 L, Absolute Monocytes 1.3 H, Absolute Eosinophils 0.1, Absolute Basophils 0, PUBS MCHC 34.8 Microbiology 09/28 175 BLOOD: Blood Culture - RECD 09/29 1719 BLOOD: Blood Culture - RECD Diagnostic Data Other Results SERVICE DATE: 09/28/16 EXAM TYPE: CAT - CT ABD & PELVIS W/O IV CONTRAS IMPRESSION: 1. Acute diverticulitis of the hepatic flexure the colon. The pericolonic inflammatory changes are mildly worse since prior CAT scan but there is no perforation, now obstruction and no abscess. 2. Nonobstructive left renal stones. 3. Cholelithiasis. 4. Mild hepatic steatosis. 5. 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 SERVICE DATE: 09/28/16 EXAM TYPE: RAD - [id number] VIEW IMPRESSION: Nonspecific bowel gas pattern, without findings indicative of small bowel obstruction or ileus. Limited evaluation for free intraperitoneal air given lack of inclusion of the bilateral lung bases and erect view of the abdomen. Assessment/Plan Assessment: 61 year old man with mutliple medical problems significant for recurrent diverticulitis seen for evaluation of abdominal pain and multiple associated complaints. Patient was identified to have diverticulitis by imaging when initially evaluated in the ED yesterday via CT/US imaging. Patient has had less than one day of oral antibiotic therapy, however is now presenting with worsening abdomial pain and fever. He is to be admitted to the general medicine floor for further evaluation and care. Acute Diverticulitis / Sepsis Patient with history of diverticulosis/diverticulitis seen in the ED the day prior to admission and diagnosed with diverticulitis via CT/US imaging. He was discharged to home on oral ciprofloxacin/flagyl but returned 24 hours later with worsening abdominal pain and fever. Patient meets criteria for sepsis by temperature, leukocytosis, and active infection. Patient had a colonoscopy on by Dr. Pride that identified diverticulosis and was otherwise within normal limits. Vitals initially signifcant for temp 101.1, BP 159/92. Significant labs WBC 12.0, Hgb/Hct 13.5/38.8, T. bili 3.0(up from 1.8 yesterday) , Lactic acid normal. CT abdomen/pelvis demonstrated acute diverticulitis. Abdominal X-ray was within normal limits. Clinically patient continues to have an atypical presentation of diverticulitis in the right colon with associated sepsis. -General Medicine -NPO, advance as tolerated -NS @ 100mL/hr -Ceftriaxone 1g IV Daily -Flagyl 500mg IV Q8H Transaminitis / Elevated bilirubin Abdominal Ultrasound on 09/27/16 demonstrated and enlarged echogenic liver consistent with hepatic steatosis and a hypoechoic mass and a distended gallbladder. CT scan today and yesterday further commment on a distended gallbladder without evidence of cholecystitis. Liver function tests the day prior to admission were normal. Bilirubin was previously 1.8, now 3.0. -HIDA scan in AM Current Everyday Consumption of Alcohol Patient admits to drinking one beer and 1-2 shots each day. -[facility] protocol -Ativan PRN per [facility] Low Testosterone / Osteopenia -Anastrozole 1mg PO Daily (ON HOLD) Chronic Low Back Pain Patient of pain management physican Dr. Dennis of [place]. -Meloxicam 15mg PO Daily (ON HOLD) -Percocet 1 TAB PO TID Hypertension-Lisinopril 5mg PO Daily (ON HOLD) Pain Plan-Acetaminophen/Morphine/Dilaudid Bowel Regimen-Senna/Miralax Diet-NPO DVT PPx-Subcutaneous Heparin Code Status-FULL CODE As Ranked By This Provider Problem List: 1. Elevated bilirubin 2. Acute diverticulitis Core Measures/Miscellaneous Acute Coronary Syndrome ACS Diagnosis: No Cerebrovascular Accident CVA/TIA Diagnosis: No Congestive Heart Failure CHF Diagnosis: No Venous Thromboembolism VTE Risk Factors: Acute medical illness, Age > 40, Estrogen, Smoking [facility] prophylaxis d/t: No contraindications No VTE Pharm Prophylaxis d/t: No contraindications VTE Diagnosis: No VTE Type: NONE VTE Confirmed by (Test): NONE Severe Sepsis Severe Sepsis Present: No Septic Shock Septic Shock Present: No Miscellaneous Documentation Attending Case Discussed With: STANFORD AUSTIN MD Primary Care Physician: SHU BURGESS,MENDOZA Andino Patient sees these Specialists Dr. Dennis (Pain Management) Dr. Munoz (Spot Welder) Dr. Pride (GI) Level of Patient Care: General Medicine JULIANNA BURGESS,SUZETTE 09/28/16 4119: Resident Review Statement Resident Statement: examined this patient, discussed with general internal medicine physician, agreed with general internal medicine physician, discussed with family, reviewed EMR data (avail), discussed with nursing , discussed with case mgmt, reviewed images, amended to note Other Findings: Dc is 61-year-old man with a medical history of hypertension dyslipidemia, fatigue secondary to? Male hypogonadism on testosterone replacement therapy and aromatase inhibitor (anastrozole) who presents with four-day history of right sided abdominal pain localized to the right upper quadrant and radiates to the flank, subjective chills who has sought medical attention ER yesterday and was prescribed Percocet, oral Flagyl and ciprofloxacin. The patient symptoms got worse he began having subjective fevers and progressive abdominal discomfort. Accompanied by some nausea without emesis. On September 27 CAT scan of the abdomen and pelvis demonstrated acute diverticulitis of the hepatic flexure of the colon. There is cholelithiasis without evidence for acute cholecystitis, and diffuse hepatic steatosis. A right upper quadrant ultrasound was also obtained to evaluate for acute cholecystitis. It showed an enlarged echogenic liver consistent with hepatic steatosis, and a distended gallbladder. The gallbladder wall thickness was at the upper limits of normal. At present the Patient himself is not acute or toxic ill-appearing. He is awake alert oriented appears relatively comfortable. He is a good historian. He does not have an acute abdomen. There does have discomfort globally but most concentrated in the right upper quadrant area as well as the right lower quadrant. He is febrile with a MAXIMUM TEMPERATURE of 101.4F he does have a leukocytosis. Remainder of labs are still pending. At this point I'm not sure I would characterize as failure of outpatient therapy. Most likely cause of the fever is the diverticulitis, however he does have small 0.2 cm calcified stone present in the region of the gallbladder neck-it should be noted that this is not visualized on ultrasound. Does not have any biliary ductal dilation. Do not suspect ischemia at this time, however it should be noted the patient is on hormone placement therapy. He does socially drink alcohol, no hx of withdrawal. Currently not in withdrawal. - Problems - Abdominal pain secondary to diverticulitis,? Acute cholecystitis Male hypogonadism Dyslipidemia Hypertension Hx of etoh use - Plan - Begin ceftriaxone 1 g IV every 24 hours, metronidazole 500 mg IV every 8 hours Awaiting blood cultures AXR ?intraabdominal air CMP is pending Check HIDA scan when available Repeat CT Abd/pelv to further characterize GB. Consider surgical evaluation NPO; hold oral medications for now Supportive therapy with intravenous Tylenol for mild/moderate pain, Dilantin for severe pain, aggressive bowel regimen to prevent constipation, normal saline at 100 mL an hour Ciwa/Ativan DVT prophylaxis heparin Full code [email or web address] 09/29/16 0643: Attending MD Review Statement Attending Statement Attending MD Statement: examined this patient, discuss w/resident/PA/[employer] DEVELOPER, agreed w/resident/PA/[employer] DEVELOPER, discussed with family, reviewed EMR data (avail), reviewed images, amended to note Attending Assessment/Plan: CC: Right-sided abdominal pain PMH: HTN, HLD, Patient came to ER yesterday for right-sided abdominal pain, CT abdomen and ultrasound abdomen was obtained, which suggested distended gallbladder and possible diverticulitis, was sent home on Flagyl and Cipro. he comes back for persistent abdominal pain and fever. Vitals: Tmax 101.1, HR 94, RR 16, blood pressure 159/92, saturating well on room air On exam: A O 3, cooperative, no acute distress, neck supple, JVD normal, no lymphadenopathy, mucosa dry, no focal neurological deficit, no dependent edema, no obvious skin rashes or inflammation CVS: S1-S2, RRR. RS: Clear to auscultate bilaterally. Abdomen: right upper quadrant and flank Tender, voluntary guarding, probable Weinberg's sign positive, ND, bowel sounds present. Labs: WBC 12.0, neutrophils 82%, lactate 0.7, BUN 10, creatinine 1.0, bilirubin 3.0, AST 80, ALT 101 CT abdomen without contrast 1. Acute diverticulitis of the hepatic flexure the colon. The pericolonic inflammatory changes are mildly worse since prior CAT scan but there is no perforation, now obstruction and no abscess. 2. Nonobstructive left renal stones. 3. Cholelithiasis. 4. Mild hepatic steatosis. 5. 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 A and P Patient comes with persistent right-sided abdominal pain, fever, chills, Increased WBC, bilirubin, transaminases as compared to yesterday. He is tender on palpation, given worsening symptoms CT abdomen was obtained again which does not show any signs of perforation, abscess, he does not show any signs of cholecystitis. But positive Weinberg sign, personally reviewed CT films: Distended gallbladder + Hepatic diverticulitis + Rule out cholecystitis + Sepsis - Admit to general medicine - Continue gentle hydration - Nothing by mouth, - HIDA scan in a.m. - Continue ceftriaxone and metronidazole IV - Surgical evaluation if worsening symptoms - Pain management - Repeat CBC, BMP, LFT in a.m. - When necessary Ativan according to [facility] protocol - Hold lisinopril and meloxicam
[2016-09-28 19:16] VITALS: BP 122/71
--- NOTE | 2016-09-28 20:18 | CT SCAN REPORT ---
EXAMINATION: CT ABDOMEN AND PELVIS WITHOUT CONTRAST CLINICAL INFORMATION: Diverticulitis. COMPARISON: None TECHNIQUE: Multidetector volumetric imaging was performed from the superior aspect of the liver through the pubic symphysis. Sagittal and coronal reformatted images were obtained on the technologist's workstation. DLP: 525.43 mGy-cm FINDINGS: LUNG BASES: The visualized lung bases are unremarkable. LIVER, GALLBLADDER, AND BILIARY TREE: Mild low attenuation of liver parenchyma due to fatty change. No focal hepatic lesion or biliary ductal dilatation is present. 3 mm calcified stone in the neck of the gallbladder. The gallbladder is distended. No edema of the gallbladder wall. No bile duct dilatation. Extrahepatic CBD measures 5 mm. PANCREAS: Unremarkable. SPLEEN: Unremarkable. ADRENAL GLANDS: Unremarkable. KIDNEYS AND URETERS: There are 3 small stones in the left kidney which are nonobstructive. There is a stone in the upper pole and 2 in the midpole. These measure about 1 mm. No stone seen in the right kidney. No ureteral stone. No hydronephrosis of either kidney. BLADDER: Unremarkable. GASTROINTESTINAL TRACT: There are scattered diverticula of the colon. The diverticula are most numerous in the left colon sigmoid. There is inflammation however of diverticula at the hepatic flexure consistent with diverticulitis. There is mild asymmetric bowel wall thickening associated with inflammation. There is pericolonic edema. No perforation of bowel. No free air. No abscess. Compared to the CAT scan of 09/27/2016 the pericolonic inflammation of the diverticulitis is mildly worse. No obstruction. The appendix is normal. Small bowel loops are normal. Small hiatal hernia. There is a diverticulum in the third portion of the duodenum. ABDOMINAL WALL: No significant hernia is appreciated. LYMPH NODES: Normal. VASCULAR: Scattered vascular calcifications of aorta and iliac vessels. No aneurysm. PELVIC VISCERA: Prostate measures 5.2 cm transverse. OSSEOUS STRUCTURES: Status post fusion with transpedicular screws from L1 through L3. Compression deformity of T12 with about 50% loss of height of the vertebrae. Compression deformity of L2 with about 40% loss of height. Anterior wedge compression deformity of L5 with about 30% loss of height of the vertebrae. No change since prior CAT scan 09/27/2016 IMPRESSION: 1. Acute diverticulitis of the hepatic flexure the colon. The pericolonic inflammatory changes are mildly worse since prior CAT scan but there is no perforation, now obstruction and no abscess. 2. Nonobstructive left renal stones. 3. Cholelithiasis. 4. Mild hepatic steatosis. 5. 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
[2016-09-28 21:35] VITALS: BP 144/84
[2016-09-29 01:16] VITALS: BP 142/78
--- NOTE | 2016-09-29 06:01 | PN- Housestaff ---
MOHSEN GAONA MD 09/29/16 0601: Subjective Follow-up For: Diverticulitis Subjective: Patient seen and examined. He is seen lying flat resting comfortably. He appears to be in no acute distress. He reports multiple lose bowel yellow bowel movements overnight. His abdominal pain is improved to about a 5/10. Otherwise he feels fine and has no new subjective complaints. Otherwise he denies any headache, fever, chills, chest pain, palpitations, shortness of breath, nausea, vomiting, diarrhea. No overnight events reported. Review of Systems Constitutional: Reports: see HPI. Objective Last 24 Hrs of Vital Signs/I&O Vital Signs Date Time Temp Pulse Resp B/P B/P Pulse O2 O2 Flow FiO2 Mean Ox Delivery Rate 09/29 0622 99.3 78 20 140/86 93 Room Air 09/29 0116 98.8 73 20 142/78 09/28 2135 144/84 09/28 2114 98.8 73 20 95 Room Air 09/28 2003 96.8 09/28 191 97.8 70 20 122/71 09/28 1916 97.8 70 20 122/71 95 Room Air 09/28 1810 101.1 09/28 1750 99 Room Air 09/28 1646 101.1 94 16 159/92 93 Room Air Intake & Output 09/29 1600 09/29 0800 09/29 0000 Intake Total 820 650 Output Total 150 Balance 820 500 Intake, IV 800 300 Intake, Oral 20 350 Number 1 Bowel Movements Output, Urine 150 Patient 102.058 kg Weight Weight Reported by Patient Measurement Method Physical Exam General Appearance: Alert, Oriented X3, Cooperative, No Acute Distress Other Physical Findings: General- well developed, well nourished middled aged man in no acute distress HEENT- NCAT, EOMI, PERRL, anicteric sclera CVS- S1, S2 w/o m/g/r Resp- CTA bilaterally GI- Soft, mild diffuse tenderness, nondistended, bowel sounds intact Neuo- Awake and alert, CN II-XII grossly intact Ext- normal pulses, no cyanosis/clubbing/edema Current Medications: Current Medications Sig/Fanny Start time Last Medication Dose Route Stop Time Status Admin Acetaminophen 1,000 MG Q8P PRN 09/28 1814 AC IV Acetaminophen 0 .STK-MED ONE 05/04 1810 DC IV Acetaminophen 1,000 MG ONCE ONE 09/28 1714 DC 09/28 N/A 1 UNIT IV 09/28 1729 1810 Ampicillin Sodium/ 0 .STK-MED ONE 09/28 181 DC Sulbactam Sodium .ROUTE Ampicillin Sodium/ 3,000 MG ONCE ONE 09/28 171 DC 09/28 Sulbactam Sodium IV 09/28 1744 1840 Sodium Chloride 100 ML Ceftriaxone Sodium 1,000 MG DAILY 09/29 1000 AC IV Diphenhydramine HCl 25 MG Q6P PRN 09/28 181 AC IV Heparin Sodium 5,000 UNIT Q8 09/28 2200 AC 09/29 (Porcine) SC 0625 Hydromorphone HCl 0.5 MG Q3P PRN 09/28 181 AC 09/29 IV 0624 Lorazepam 0 Q1P PRN 09/28 1945 AC 09/29 IV 0123 Metronidazole 500 MG IQ8 09/29 0000 AC 09/29 N/A 1 UNIT IV 0850 Morphine Sulfate 0 .STK-MED ONE 09/28 181 DC .ROUTE Morphine Sulfate 6 MG ONCE ONE 09/28 1714 DC 09/28 IV 09/28 1716 1807 Ondansetron HCl 4 MG Q6P PRN 09/28 181 AC IV Polyethylene Glycol 17 GM AT BEDTIME 09/28 2199 AC PO Senna/Docusate Sodium 2 TAB AT BEDTIME 09/28 220 AC PO Sodium Chloride 1,000 ML .Q10H 09/28 1800 AC 09/29 IV 0624 Sodium Chloride 1,000 ML BOLUS ONE 09/28 1714 DC 09/28 IV 09/28 181 1745 Last 24 Hrs of Lab/Heath Results Last 24 Hrs of Labs/Mics: Laboratory Tests 09/29/16 0630: Anion Gap 11, Estimated GFR > 60, BUN/Creatinine Ratio 11.1, CBC w Diff NO MAN DIFF REQ, RBC 4.05 L, MCV 91.9, MCH 31.9 H, RDW 13.7, MPV 8.0, Gran % 79.6 H, Lymphocytes % 7.8 L, Monocytes % 11.8 H, Eosinophils % 0.6, Basophils % 0.2, Absolute Granulocytes 8.8 H, Absolute Lymphocytes 0.9 L, Absolute Monocytes 1.3 H, Absolute Eosinophils 0.1, Absolute Basophils 0, PUBS MCHC 34.7 09/28/162003: Lactic Acid Cancelled 09/28/16 1722: Anion Gap 14, Estimated GFR > 60, BUN/Creatinine Ratio 10.0, Glucose 134 H, Lactic Acid 0.7, Calcium 8.9, Total Bilirubin 3.0 H, Direct Bilirubin 1.3 H, AST 80 H, ALT 101 H, Alkaline Phosphatase 63, Total Protein 7.4, Albumin 4.3, Globulin 3.1, Albumin/Globulin Ratio 1.4, Lipase 39, CBC w Diff NO MAN DIFF REQ, RBC 4.26 L, MCV 91.0, MCH 31.7 H, RDW 13.5, MPV 7.4, Gran % 82.6 H, Lymphocytes % 6.1 L, Monocytes % 10.7 H, Eosinophils % 0.4, Basophils % 0.2, Absolute Granulocytes 9.9 H, Absolute Lymphocytes 0.7 L, Absolute Monocytes 1.3 H, Absolute Eosinophils 0.1, Absolute Basophils 0, PUBS MCHC 34.8 Microbiology 09/28 1754 BLOOD: Blood Culture - RECD 09/29 1719 BLOOD: Blood Culture - RECD Assessment/Plan Assessment: Patient was made NPO over night for a HIDA scan this morning. He reports some improvement in his abdominal pain but admits to multiple lose yellow bowel movements overnight. He otherwise feels fine and denies any nausea, vomiting, fever, or chills. He has some appetite and is requesting to "try something" to eat. HIDA scan was positive for cholecystitis for which a surgical consult was placed. Case was discussed with Dr. Davis whom stated that patient may require an ERCP and should have a gastroenterology consultation. GI consult was placed and case was discussed with Dr. Acosta whom stated patient requires an MRCP and possible transfer should he require an ERCP as the service is not available this weekend. Patient was made aware of these findings and plan. Acute Diverticulitis / Sepsis Patient with history of diverticulosis/diverticulitis seen in the ED the day prior to admission and diagnosed with diverticulitis via CT/US imaging. He was discharged to home on oral ciprofloxacin/flagyl but returned 24 hours later with worsening abdominal pain and fever. Patient meets criteria for sepsis by temperature, leukocytosis, and active infection. Patient had a colonoscopy on by Dr. Pride that identified diverticulosis and was otherwise within normal limits. Vitals initially signifcant for temp 101.1, BP 159/92. Significant labs WBC 12.0, Hgb/Hct 13.5/38.8, T. bili 3.0(up from 1.8 yesterday) , Lactic acid normal. CT abdomen/pelvis demonstrated acute diverticulitis. Abdominal X-ray was within normal limits. Clinically patient continues to have an atypical presentation of diverticulitis in the right colon with associated sepsis. -General Medicine -NPO, advance as tolerated -NS @ 100mL/hr -Ceftriaxone 1g IV Daily -Flagyl 500mg IV Q8H -F/U cultures & sensitivites Transaminitis / Elevated bilirubin Abdominal Ultrasound on 09/27/16 demonstrated and enlarged echogenic liver consistent with hepatic steatosis and a hypoechoic mass and a distended gallbladder. CT scan today and yesterday further commment on a distended gallbladder without evidence of cholecystitis. Liver function tests the day prior to admission were normal. Bilirubin was previously 1.8, now 3.0. -F/U HIDA scan Current Everyday Consumption of Alcohol Patient admits to drinking one beer and 1-2 shots each day. -WA protocol -Ativan PRN per [facility] Low Testosterone / Osteopenia -Anastrozole 1mg PO Daily (ON HOLD) Chronic Low Back Pain Patient of pain management physican Dr. Dennis of [place]. -Meloxicam 15mg PO Daily (ON HOLD) -Percocet 1 TAB PO TID Hypertension-Lisinopril 5mg PO Daily (ON HOLD) Pain Plan-Acetaminophen/Morphine/Dilaudid Bowel Regimen-Senna/Miralax Diet-NPO DVT PPx-Subcutaneous Heparin Code Status-FULL CODE Problem List: 1. Elevated bilirubin 2. Acute diverticulitis Pain Ratin Pain Location: Abdomen Pain Goal: Pain 7 or less Pain Plan: See assessment Tomorrow's Labs & Rationales: CBC BEP LFTs RAMO SCOTT MD 09/29/16 1454: Attending MD Review Statement Attending Statement Attending MD Statement: examined this patient, discuss w/resident/PA/SHOE SPRAYER, agreed w/resident/PA/SHOE SPRAYER, reviewed EMR data (avail) Attending Assessment/Plan: 61M PMH diverticulosis admitted with nausea, vomiting, abdominal pain in the setting of acute diverticulitis. Abdominal pain persists but is improved, 3 soft BM overnight, no further nausea or vomiting, hemodynamically stable. HIDA scan was done today which is suggestive of acute cholecystitis. 1. Acute cholecystitis 2. Acute diverticulitis 3. Nausea vomiting Plan - Continue on general medicine - Continue Ceftriaxone and Flagyl - Follow cultures - Surgery consult - Pain and nausea control - Advance diet as tolerated - Continue home medications - DVT PPx
[2016-09-29 06:22] VITALS: BP 140/86
--- NOTE | 2016-09-29 06:44 | Admission Certification ---
Admission Certification Certification Statement - As attending physician, I certify that at the time of - admission, based on clinical presentation, severity of - symptoms, need for further diagnostic testing and - therapeutic interventions, and risk of adverse outcomes - without in-hospital treatment, in my clinical assessment, - this patient requires an acute hospital stay for a minimum - of two nights or longer. I have also considered psychsocial - factors such as support system, advanced age, financial - issues, cognitive issues, and failed out-patient treatments, - past re-admission history, safety of patient, and lack of - compliance as applicable. Specific rationale supporting this admission is: Acute diverticulitis
[2016-09-29 07:52] LABS: ABSOLUTE BASOPHIL COUNT 0 /CUMM (0.0-0.2); ABSOLUTE EOSINOPHIL COUNT 0.1 /CUMM (0.0-0.7); ABSOLUTE GRANULOCYTE CT 8.8 /CUMM (1.4-6.5); ABSOLUTE LYMPH COUNT 0.9 /CUMM (1.2-3.4); ABSOLUTE MONOCYTE COUNT 1.3 /CUMM (0.10-0.60); BASOPHIL % 0.2 % (0.0-2.0); EOSINOPHIL % 0.6 % (0-5); GRANULOCYTE % 79.6 % (42.2-75.2); HEMATOCRIT 37.2 % (42-52); MEAN CORPUSCULAR HGB 31.9 PG (27.0-31.0); MEAN CORPUSCULAR HGB CONC 34.7 G/DL (33.0-37.0); MEAN CORPUSCULAR VOLUME 91.9 FL (80.0-94.0); PLATELET COUNT 168 /CUMM (130-400); RBC DISTRIBUTION WIDTH 13.7 % (11.5-14.5); RED BLOOD CELL CT 4.05 /CUMM (4.70-6.10); WHITE BLOOD CELL COUNT 11.1 /CUMM (4.8-10.8)
[2016-09-29 08:00] VITALS: BP 140/86
--- NOTE | 2016-09-29 09:40 | PN- Student ---
Subjective Subjective: History and Physical Dc Perez is a 61 year old male with a significant past medical history of diverticulosis/diverticulitis seen in the ED for severe abdominal pain associated with fever, chills, nausea, vomiting, shortness of breath and headache. Patient was seen in the [place] ED on Sunday for the same symptoms, minus fever, for which he had a CT w/out contrast of the abdomen/pelvis and an abdominal ultrasound that identified an acute diverticulitis. Patient was then discharged and given Ciprofloxacin/Metronidazole and Percocet for pain. However , upon awakening on morning, patient reports feeling much worse with a fever, chills, nausea, loss of apetite and general malaise. He reports not eating for 48 hours on admission other than some crackers and yogurt. He did have one loose bowel movement in the ED that was reportedly brown and non- bloody. Patient otherwise denies numbness, tingling, headaches, lightheadedness, blurr vision, palpitations, cough. Past medical history: diverticulosis/diverticulitis, obstructive sleep apnea, chronic back pain s/p repair, kidney stones, bilateral hernia repair, HTN, low testosterone, osteopenia, obstructive sleep apnea Social history: patient reports smoking 4-5 cigars a day (with inhaling) for 20 years and reportedly stopped that 20 years ago; these days he smokes ~3-4 cigars per year. Patient admits to drinking 1 beer and ~2 shots everyday for "as long as he can remember". He lives at home with this and their dog. Patient is currently on disability due to chronic low back pain s/p surgical repair Allergies: No known allergies Current Medications Sig/Fanny Start time Last Medication Dose Stop Time Status Admin Acetaminophen 1,000 MG Q8P PRN 09/28 1814 AC (Ofirmev) Ceftriaxone Sodium 1,000 MG DAILY 09/29 1000 AC (Rocephin) Diphenhydramine HCl 25 MG Q6P PRN 09/28 181 AC (Benadryl) Heparin Sodium 5,000 UNIT Q8 09/28 2200 AC 09/29 (Porcine) 0625 Hydromorphone HCl 0.5 MG Q3P PRN 09/28 181 AC 09/29 (Dilaudid) 0624 Lorazepam 0 Q1P PRN 09/28 1945 AC 09/29 (Ativan) 0123 Metronidazole 500 MG IQ8 09/29 0000 AC 09/29 (Flagyl) 0850 N/A 1 UNIT (No Carrier) Ondansetron HCl 4 MG Q6P PRN 09/28 1815 AC (Zofran) Polyethylene Glycol 17 GM AT BEDTIME 09/28 2200 AC (Miralax) Senna/Docusate Sodium 2 TAB AT BEDTIME 09/28 2200 AC (Senokot S) Sodium Chloride 1,000 ML .Q10H 09/28 1800 AC 09/29 (Normal Saline 0.9%) 0624 Past family history: Mom- repeated episodes of diverticulitis. Father- , Lymphoma Vital Signs Date Time Temp Pulse Resp B/P B/P Pulse O2 O2 Flow FiO2 Mean Ox Delivery Rate 09/29 06 99.3 78 20 140/86 93 Room Air 09/29 0116 98.8 73 20 142/78 09/28 2135 144/84 09/28 2114 98.8 73 20 95 Room Air 09/28 2002 96.8 09/28 191 97.8 70 20 122/71 05 1916 97.8 70 20 122/71 95 Room Air 09/28 1810 101.1 09/28 1750 99 Room Air 09/28 1646 101.1 94 16 159/92 93 Room Air Physical exam: General- well-appearing, well-nourished middle aged male in [facility] HEENT- NCAT, PERRL, EOMI Cardio- Normal S1 & S2 with no M/G/R Resp- CTA bilaterally Abdomen- soft, normal bowel sounds, no HSM, severe RUQ abdominal tenderness, noguera sign negative, no guarding or rigidity Extremity- normal pulses, no cyanosis/clubbing/edema CT abdomen/pelvis W/out IV contrash: 1. Acute diverticulitis of the hepatic flexure the colon. The pericolonic inflammatory changes are mildly worse since prior CAT scan but there is no perforation, now obstruction and no abscess. 2. Nonobstructive left renal stones. 3. Cholelithiasis. 4. Mild hepatic steatosis. 5. 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 Xray Abdomen- Nonspecific bowel gas pattern, without findings indicative of small bowel obstruction or ileus. Limited evaluation for free intraperitoneal air given lack of inclusion of the bilateral lung bases and erect view of the abdomen. Assessment/Plan: 61 year old man with mutliple medical problems significant for recurrent diverticulitis seen for eval of abdominal pain and multiple associated complaints. Patient was identified to have diverticulitis by imaging when initially evaluated in the ED yesterday via CT/US imaging. Pt is now presenting with worsening abdomial pain and fever. Acute diverticulitis -General medicine admit -NPO exception of water/liquids -Continue Ceftriaxone/Flagyl -Normal saline Transaminitis/Elevated bilirubin- bilirubin went from 1.3 -> 3.0 -LFTs -HIDA scan in the AM Chronic low back pain s/p repair Pain management under the supervision of Dr. Dennis -Percocet 1 tab PO TID -Meloxicam (on hold) DVT ppx- SC Heparin Code status- Full code
--- NOTE | 2016-09-29 14:23 | NUCLEAR MEDICINE REPORT ---
EXAMINATION: NM BILIARY TRACT IMAGING CLINICAL INFORMATION: Right upper quadrant pain and leukocytosis. Assess for acute cholecystitis. COMPARISON: CT scan of the abdomen and pelvis 09/28/2016. TECHNIQUE: Serial gamma scintillation camera images were obtained over the abdomen for a total observation period of 145 minutes following the intravenous administration of 5.5 mCi Tc-99m Choletec. FINDINGS: There is good concentration of activity in the liver by 5 minutes post injection. Biliary activity is visualized by 10 minutes. Small bowel bowel is well visualized by 15-20 minutes. The gallbladder there is never visualized throughout the study. At the end of the study there is good clearance of activity from the liver and visualization of diffuse small and proximal large bowel activity. IMPRESSION: 1. The gallbladder is not visualized, suggestive of acute cholecystitis. 2. The common bile duct is patent. 3. Liver function appears normal.
--- NOTE | 2016-09-29 16:01 | Cons- Gastroenterology ---
General Information and HPI Consulting Request Date of Consult: 09/29/16 Requested By: KIEL HEWITT M.D Reason for Consult: Increased LFTs, diverticulitis on ct scan, RUQ pain, evaluate for possible ERCP. Source of Information: patient, old records Exam Limitations: no limitations History of Present Illness: Mr. Frazier is a 61 year old with a history of diverticulitis who presented to for the second time in as many days with complaints of worsening RUQ abdominal pain. He was first seen in the ER on September 27 at which point he underwent an US and a ct scan which showed changes of diverticulitis and he was sent home with oral antibiotics only to return the next day with worsening symptoms. He has been having sharp, crampy pain in his RUQ associated with some bilious vomiting and fevers at home. The pain radiates around, but not through to his back. He has been without any complaints of jose colored stool or dark urine and he has also been without any rectal bleeding or melena. He was admitted to the medical service and started on IV antibiotics and kept NPO. Because of the location of the inflammation on his ct scan and possible cholecystitis on his US a HIDA scan was obtained today that showed a non-filling gallbladder suggestive of cholecystitis and it was noted that there was contrast in the small bowel indicating the CBD was patent. His abdominal pain, while still present, has improved since being started on Abx. He was febrile on presentation to the hospital, but he has since defervesced and he has not had any high temperature spikes since being admitted and he has been hemodynamically stable since admission. Allergies/Medications Allergies: Coded Allergies: NO KNOWN ALLERGIES (01/10/11) Home Med List: Anastrozole 1 MG TABLET 1 TAB PO DAILY CONTROL HORMONES (Reported) Calcium Carbonate/Vitamin D3 (Calcium 500 + D Tablet) 500 MG-400 TABLET 1 TAB PO DAILY CALCIUM SUPPLEMENT (Reported) Cholecalciferol (Vitamin D3) 1,000 UNIT TABLET 1 TAB PO DAILY VITAMIN SUPPORT (Reported) Ciprofloxacin HCl (Cipro) 500 MG TABLET 1 TAB PO BID DIVERTICULITIS Cyanocobalamin (Vitamin B-12) 1,000 MCG TABLET 1 TAB PO DAILY VITAMIN SUPPORT (Reported) Folic Acid 1 MG TABLET 1 TAB PO DAILY VITAMIN SUPPORT (Reported) Lisinopril 5 MG TABLET 1 TAB PO DAILY BP (Reported) Meloxicam 15 MG TABLET 1 TAB PO DAILY PAIN (Reported) Metronidazole (Flagyl) 500 MG TABLET 1 TAB PO TID DIVERTICULITIS [place]-3 Fatty Acids/Fish Oil (Fish Oil 1,000 MG Capsule) 340 MG-1,000 MG CAPSULE 1 CAP PO DAILY SUPPLEMENT (Reported) Ondansetron (Zofran Odt) 4 MG TAB.RAPDIS 1 TAB SL TID PRN NAUSEA Oxycodone HCl/Acetaminophen (Oxycodone-Acetaminophen 5-325) 5 MG-325 MG TABLET 1 TAB PO PRN PAIN (Reported) Testosterone Cypionate 200 MG/ML VIAL 0.8 ML IM Q2W HRT (Reported) Current Medications: Current Medications Sig/Fanny Start time Last Medication Dose Route Stop Time Status Admin Acetaminophen 650 MG Q4P PRN 09/29 1045 AC PO Acetaminophen 1,000 MG Q8P PRN 09/28 181 DC IV Acetaminophen 0 .STK-MED ONE 09/28 181 DC IV Acetaminophen 1,000 MG ONCE ONE 09/28 171 DC 09/28 N/A 1 UNIT IV 09/28 1729 1810 Ampicillin Sodium/ 0 .STK-MED ONE 09/28 1812 DC Sulbactam Sodium .ROUTE Ampicillin Sodium/ 3,000 MG ONCE ONE 09/28 171 DC 09/28 Sulbactam Sodium IV 09/28 1744 1840 Sodium Chloride 100 ML Ceftriaxone Sodium 1,000 MG DAILY 09/29 1000 AC 09/29 IV 1009 Diphenhydramine HCl 25 MG Q6P PRN 09/28 181 DC IV Heparin Sodium 5,000 UNIT Q8 09/28 2200 AC 09/29 (Porcine) SC 0625 Hydromorphone HCl 0.5 MG Q3P PRN 09/28 1815 AC 09/29 IV 0624 Lorazepam 0 Q1P PRN 09/28 1945 AC 09/29 IV 0123 Metronidazole 500 MG IQ8 09/29 0000 AC 09/29 N/A 1 UNIT IV 0850 Morphine Sulfate 0 .STK-MED ONE 09/28 181 DC .ROUTE Morphine Sulfate 6 MG ONCE ONE 09/28 1715 DC 09/28 IV 09/28 1716 1807 Ondansetron HCl 4 MG Q6P PRN 09/28 1815 IV Patient Medication 1 ED ONE ONE 09/29 1430 DC Teaching ED 09/29 1431 Polyethylene Glycol 17 GM AT BEDTIME 09/28 2200 DC PO Senna/Docusate Sodium 2 TAB AT BEDTIME 09/28 2200 DC PO Sodium Chloride 1,000 ML .Q10H 09/28 1800 AC 09/29 IV 0624 Sodium Chloride 1,000 ML BOLUS ONE 09/28 1715 DC 09/28 IV 09/28 1814 1745 Past History Travel History Traveled to [place] past 21 day No Medical History Blood Transfusion Hx: Yes Neurological: NONE EENT: NONE Cardiovascular: hypertension Respiratory: bronchitis Gastrointestinal: diverticulitis Hepatic: NONE Renal: Kidney stones Musculoskeletal: chronic back pain, OsteopeniA Psychiatric: NONE Endocrine: low testosterone Blood Disorders: NONE Cancer(s): NONE FITNESS ASSISTANT/Reproductive: NONE Surgical History Surgical History: hernia repair-inguinal, spinal fusion Psychosocial History Where Do You Live? Home Who Do You Live With? spouse Smoking Status: Former Smoker ETOH Use: occasional use Illicit Drug Use: denies illicit drug use Review of Systems Review of Systems Constitutional: Reports: fever. Denies: chills, diaphoresis, malaise, weakness. EENTM: Denies: no symptoms. Cardiovascular: Denies: no symptoms. Respiratory: Denies: no symptoms. GI: Reports: see HPI. Genitourinary: Denies: no symptoms. Musculoskeletal: Denies: no symptoms. Skin: Denies: no symptoms. Neurological/Psychological: Denies: no symptoms. Hematologic/Endocrine: Denies: no symptoms. Immunologic/Allergic: Denies: no symptoms. All Other Systems: Reviewed and Negative Exam & Diagnostic Data Vital Signs and I&O Vital Signs Date Time Temp Pulse Resp B/P B/P Pulse O2 O2 Flow FiO2 Mean Ox Delivery Rate 09/29 0800 99.3 78 20 140/86 09/29 0622 99.3 78 20 140/86 93 Room Air 09/29 0116 98.8 73 20 142/78 09/28 2135 144/84 09/284 98.8 73 20 95 Room Air 09/28 2002 96.8 09/29 1915 97.8 70 20 122/71 09/28 191 97.8 70 20 122/71 95 Room Air 09/28 1810 101.1 09/28 1750 99 Room Air 09/28 1646 101.1 94 16 159/92 93 Room Air Intake & Output 09/29 1600 09/29 0400 09/28 1600 09/28 0400 09/27 1600 09/27 0400 Intake Total 1220 650 Output Total 150 Balance 1220 500 Intake, IV 1200 300 Intake, Oral 20 350 Number 2 Bowel Movements Output, Urine 150 Patient 225 lb Weight Weight Reported by Patient Measurement Method Physical Exam General Appearance: well developed/nourished, no apparent distress, alert, comfortable Head: atraumatic, normal appearance Eyes: Bilateral: normal appearance, other (mild icterus). Ears, Nose, Throat: normal pharynx, normal ENT inspection, hearing grossly normal Neck: normal inspection, supple, full range of motion Respiratory: normal breath sounds, chest non-tender, no respiratory distress Cardiovascular: regular rate/rhythm Gastrointestinal: normal bowel sounds, soft, no organomegaly, tenderness, RUQ tenderness Rectal: deferred Back: normal inspection, normal range of motion Extremities: normal inspection, normal capillary refill, normal range of motion Neurologic/Psych: no motor/sensory deficits, awake, alert, oriented x 3 Skin: intact, normal color, warm/dry Results Pertinent Lab Results: Laboratory Tests 09/29 Chemistry Sodium (137 - 145 mmol/L) 134 L Potassium (3.5 - 5.1 mmol/L) 3.9 Chloride (98 - 107 mmol/L) 99 Carbon Dioxide (22 - 30 mmol/L) 23 Anion Gap (5 - 16) 11 BUN (9 - 20 mg/dL) 10 Creatinine (0.7 - 1.2 mg/dL) 0.9 Estimated GFR (>60 ml/min) > 60 BUN/Creatinine Ratio (7 - 25 %) 11.1 Lactic Acid Cancelled Total Bilirubin (0.2 - 1.3 mg/dL) 2.1 H Direct Bilirubin (< 0.4 mg/dL) 1.1 H AST (17 - 59 U/L) 61 H ALT (21 - 72 U/L) 97 H Alkaline Phosphatase (< 127 U/L) 69 Total Protein (6.3 - 8.2 g/dL) 6.5 Albumin (3.5 - 5.0 g/dL) 3.8 Hematology CBC w Diff NO MAN DIFF REQ WBC (4.8 - 10.8 /CUMM) 11.1 H RBC (4.70 - 6.10 /CUMM) 4.05 L Hgb (14.0 - 18.0 G/DL) 12.9 L Hct (42 - 52 %) 37.2 L MCV (80.0 - 94.0 FL) 91.9 MCH (27.0 - 31.0 PG) 31.9 H RDW (11.5 - 14.5 %) 13.7 Plt Count (130 - 400 /CUMM) 168 MPV (7.4 - 10.4 FL) 8.0 Gran % (42.2 - 75.2 %) 79.6 H Lymphocytes % (20.5 - 51.1 %) 7.8 L Monocytes % (1.7 - 9.3 %) 11.8 H Eosinophils % (0 - 5 %) 0.6 Basophils % (0.0 - 2.0 %) 0.2 Absolute Granulocytes (1.4 - 6.5 /CUMM) 8.8 H Absolute Lymphocytes (1.2 - 3.4 /CUMM) 0.9 L Absolute Monocytes (0.10 - 0.60 /CUMM) 1.3 H Absolute Eosinophils (0.0 - 0.7 /CUMM) 0.1 Absolute Basophils (0.0 - 0.2 /CUMM) 0 PUBS MCHC (33.0 - 37.0 G/DL) 34.7 05/04 1722 Chemistry Sodium (137 - 145 mmol/L) 131 L Potassium (3.5 - 5.1 mmol/L) 3.8 Chloride (98 - 107 mmol/L) 94 L Carbon Dioxide (22 - 30 mmol/L) 23 Anion Gap (5 - 16) 14 BUN (9 - 20 mg/dL) 10 Creatinine (0.7 - 1.2 mg/dL) 1.0 Estimated GFR (>60 ml/min) > 60 BUN/Creatinine Ratio (7 - 25 %) 10.0 Glucose (65 - 99 mg/dL) 134 H Lactic Acid (0.7 - 2.1 mmol/L) 0.7 Calcium (8.4 - 10.2 mg/dL) 8.9 Total Bilirubin (0.2 - 1.3 mg/dL) 3.0 H Direct Bilirubin (< 0.4 mg/dL) 1.3 H AST (17 - 59 U/L) 80 H ALT (21 - 72 U/L) 101 H Alkaline Phosphatase (< 127 U/L) 63 Total Protein (6.3 - 8.2 g/dL) 7.4 Albumin (3.5 - 5.0 g/dL) 4.3 Globulin (1.9 - 4.2 gm/dL) 3.1 Albumin/Globulin Ratio (1.1 - 2.2 %) 1.4 Lipase (23 - 300 U/L) 39 Hematology CBC w Diff NO MAN DIFF REQ WBC (4.8 - 10.8 /CUMM) 12.0 H RBC (4.70 - 6.10 /CUMM) 4.26 L Hgb (14.0 - 18.0 G/DL) 13.5 L Hct (42 - 52 %) 38.8 L MCV (80.0 - 94.0 FL) 91.0 MCH (27.0 - 31.0 PG) 31.7 H RDW (11.5 - 14.5 %) 13.5 Plt Count (130 - 400 /CUMM) 181 MPV (7.4 - 10.4 FL) 7.4 Gran % (42.2 - 75.2 %) 82.6 H Lymphocytes % (20.5 - 51.1 %) 6.1 L Monocytes % (1.7 - 9.3 %) 10.7 H Eosinophils % (0 - 5 %) 0.4 Basophils % (0.0 - 2.0 %) 0.2 Absolute Granulocytes (1.4 - 6.5 /CUMM) 9.9 H Absolute Lymphocytes (1.2 - 3.4 /CUMM) 0.7 L Absolute Monocytes (0.10 - 0.60 /CUMM) 1.3 H Absolute Eosinophils (0.0 - 0.7 /CUMM) 0.1 Absolute Basophils (0.0 - 0.2 /CUMM) 0 PUBS MCHC (33.0 - 37.0 G/DL) 34.8 Imaging/Other Studies: 09/27/16: EXAM TYPE: US - US-LIMITED ABDOMEN EXAMINATION: US ABDOMEN LIMITED CLINICAL INFORMATION: Right upper quadrant abdominal pain, nausea and vomiting.. COMPARISON: Selected images CT abdomen and pelvis without contrast 10/15/2009 and 11/15/2009. TECHNIQUE: Real-time imaging of the right upper quadrant abdominal viscera. The study was technically limited as the patient could not fully recline for the examination. FINDINGS: PANCREAS: The pancreas is obscured by bowel gas. LIVER: The liver is enlarged measuring 21.2 cm in length. The liver is diffusely echogenic. A hypoechoic region is seen adjacent to the gallbladder measuring 1.7 x 2.1 x 1.8 cm. This was not obvious on prior CT study from 2009. This statistically most likely to reflect focal fatty sparing. No additional liver lesions are seen. No dilatation of the intrahepatic bile ducts. GALLBLADDER: The gallbladder is distended measuring 9.7 x 4.1 x 4.6 cm in size. The gallbladder was also distended on a prior CT from 10/20/2009 and 11/15/2009. No focal tenderness over the gallbladder. No cholelithiasis or significant echogenic bile is identified. The gallbladder wall measures 5 mm which is mildly thickened. No evidence of pericholecystic fluid. COMMON BILE DUCT: Normal in caliber measuring 0.6 cm in diameter. RIGHT KIDNEY: Normal. No hydronephrosis. No renal calculi or focal parenchymal lesions. The kidney measures 13.0 cm in maximum dimension. FREE FLUID: None. IMPRESSION: 1. Enlarged echogenic liver consistent with hepatic steatosis. The hypoechoic masslike region adjacent to the gallbladder measuring 2.1 cm is most likely reflective of hepatic steatosis. This could be clarified within MRI of the abdomen for further evaluation. 2. The gallbladder is distended. This is not a significant change from prior imaging. The gallbladder wall thickness is at the upper limits of normal in size but there is no evidence of pericholecystic fluid. HIDA scan may be of further value if the patient has continued right upper quadrant pain. 3. The right kidney shows no evidence of hydronephrosis. 09/28/16: EXAM TYPE: CAT - CT ABD & PELVIS W/O IV CONTRAS EXAMINATION: CT ABDOMEN AND PELVIS WITHOUT CONTRAST CLINICAL INFORMATION: Diverticulitis. COMPARISON: None TECHNIQUE: Multidetector volumetric imaging was performed from the superior aspect of the liver through the pubic symphysis. Sagittal and coronal reformatted images were obtained on the technologist's workstation. DLP: 525.43 mGy-cm FINDINGS: LUNG BASES: The visualized lung bases are unremarkable. LIVER, GALLBLADDER, AND BILIARY TREE: Mild low attenuation of liver parenchyma due to fatty change. No focal hepatic lesion or biliary ductal dilatation is present. 3 mm calcified stone in the neck of the gallbladder. The gallbladder is distended. No edema of the gallbladder wall. No bile duct dilatation. Extrahepatic CBD measures 5 mm. PANCREAS: Unremarkable. SPLEEN: Unremarkable. ADRENAL GLANDS: Unremarkable. KIDNEYS AND URETERS: There are 3 small stones in the left kidney which are nonobstructive. There is a stone in the upper pole and 2 in the midpole. These measure about 1 mm. No stone seen in the right kidney. No ureteral stone. No hydronephrosis of either kidney. BLADDER: Unremarkable. GASTROINTESTINAL TRACT: There are scattered diverticula of the colon. The diverticula are most numerous in the left colon sigmoid. There is inflammation however of diverticula at the hepatic flexure consistent with diverticulitis. There is mild asymmetric bowel wall thickening associated with inflammation. There is pericolonic edema. No perforation of bowel. No free air. No abscess. Compared to the CAT scan of 09/27/2016 the pericolonic inflammation of the diverticulitis is mildly worse. No obstruction. The appendix is normal. Small bowel loops are normal. Small hiatal hernia. There is a diverticulum in the third portion of the duodenum. ABDOMINAL WALL: No significant hernia is appreciated. LYMPH NODES: Normal. VASCULAR: Scattered vascular calcifications of aorta and iliac vessels. No aneurysm. PELVIC VISCERA: Prostate measures 5.2 cm transverse. OSSEOUS STRUCTURES: Status post fusion with transpedicular screws from L1 through L3. Compression deformity of T12 with about 50% loss of height of the vertebrae. Compression deformity of L2 with about 40% loss of height. Anterior wedge compression deformity of L5 with about 30% loss of height of the vertebrae. No change since prior CAT scan 09/27/2016 IMPRESSION: 1. Acute diverticulitis of the hepatic flexure the colon. The pericolonic inflammatory changes are mildly worse since prior CAT scan but there is no perforation, now obstruction and no abscess. 2. Nonobstructive left renal stones. 3. Cholelithiasis. 4. Mild hepatic steatosis. 5. 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 09/29/16 EXAM TYPE: NUC - HIDA SCAN EXAMINATION: NM BILIARY TRACT IMAGING CLINICAL INFORMATION: Right upper quadrant pain and leukocytosis. Assess for acute cholecystitis. COMPARISON: CT scan of the abdomen and pelvis 09/28/2016. TECHNIQUE: Serial gamma scintillation camera images were obtained over the abdomen for a total observation period of 145 minutes following the intravenous administration of 5.5 mCi Tc-99m Choletec. FINDINGS: There is good concentration of activity in the liver by 5 minutes post injection. Biliary activity is visualized by 10 minutes. Small bowel bowel is well visualized by 15-20 minutes. The gallbladder there is never visualized throughout the study. At the end of the study there is good clearance of activity from the liver and visualization of diffuse small and proximal large bowel activity. IMPRESSION: 1. The gallbladder is not visualized, suggestive of acute cholecystitis. 2. The common bile duct is patent. 3. Liver function appears normal. Assessment/Plan Assessment/Recommendations: Assessment: Mr. Perez is a 61 year old male who was admitted to [facility] yesterday with diverticulitis and started on IV antibiotics after failing to improve with oral antibiotics when he first presented to the ER about 1 day prior to admission. He has been noted to have diverticulitis involving the hepatic flexure which is an usual place to get diverticulitis, but he did have right sided diverticulitis on his previous colonoscopies in 2013 and 2009 so it isn't unheard of. It is also possible that he has cholecystitis or cholangitis and the resuling inflammation appears radiographically as diverticulitis considering the proximity of the gallbladder to the hepatic flexure of the colon. It may ultimately be reasonable to pursue an ERCP based on his increased bilirubin, but as he is without any biliary ductal dilatation on imaging, his bilirubin is improving and is primarily indirect, his alk phos is normal, and his CBD was just demonstrated to be patent on the HIDA scan biliary obstruction is very unlikely. It is possible he may have passed a gallstone and it is also possible that he may have a retained cbd stone which may need to be removed, but as my suspicion for cholangitis and biliary obstruction is low and as he has been afebrile since admission and hemodynamically stable since admission I don't feel an ERCP is urgent and would recommend pursuing either an MRCP first or would recommend doing an intraoperative cholangiogram at the time of a cholecystectomy which seems to be indicated based on the lack of filling of his gallbladder on the HIDA scan done today. Recommendations: 1. Check an MRCP of the biliary tree and would also get MRI of the liver at the same time if possible to evaluate the hypoechoic lesion in his liver seen on the US which likely represents focal fatty sparring 2. Continue IV abx 3. Keep NPO for now 4. Surgical follow up for possible CCY and would recommend doing an intraoperative cholangiogram if an MRCP is not able to be done first 5. If MRCP is positive for a retained stone will then arrange for an ERCP and this may require transfer based on Dr. Pride's availability this weekend 6. Notify GI for signs of acute cholangitis such as worsening RUQ pain, jaundice with temperature spikes or hemodynamic instability 7. Follow daily LFTs I will continue to follow this patient and make further recommendations based on his clinical course and results of further imaging and blood work. Problem List: 1. Acute diverticulitis 2. Elevated bilirubin Copies To: SHU BURGESS,MENDOZA Andino Consult Acknowledgment - Thank you for your consult request.
[2016-09-29 18:00] VITALS: BP 140/80
--- NOTE | 2016-09-29 18:04 | MRI REPORT ---
EXAMINATION: MR ABDOMEN WITHOUT CONTRAST CLINICAL INFORMATION: 61-year-old male with right upper quadrant pain and leukocytosis. Diverticulitis and cholecystitis. Possible cholangitis. COMPARISON: CT images of abdomen pelvis from 09/27/2016 and 09/28/2016. TECHNIQUE: MR imaging of the abdomen was performed on a high-field 1.5 Rain magnet using standard magnetic resonance cholangiopancreatography protocol. FINDINGS: Mild atelectasis within lower lobes. No pericardial or pleural effusion. There is diffuse hepatic steatosis. No focal, suspicious hepatic lesion or intrahepatic bile duct dilatation. Gallbladder is moderately distended and its wall measures up to 3-4 mm thick. The small, calcified gallstone within the gallbladder lumen observed on recent CT exams is difficult to visualize with MR imaging. Also, there was a small calcified stone within the cystic duct on recent CT exams (image 227, series 3, 09/28/2016). There are no stones identified within the common duct. Common bile duct is normal in caliber; it measures up to 6-7 mm diameter. Pancreas is normal. No pancreatic divisum. Diverticula of the third portion of the duodenum are adjacent to the pancreatic head. Spleen is normal. Adrenal glands are normal. Kidneys are normal in size.. A peripelvic cyst at the lower pole the right kidney measures up to 1.7 cm. No suspicious renal lesion or hydronephrosis. The atherosclerotic abdominal aorta is normal in caliber. No pathologic sized periportal, mesenteric or retroperitoneal lymph nodes. The visualized loops of bowel are normal in caliber. Again noted is pericolonic edema around the hepatic flexure and around the adjacent gallbladder. There are diverticula of the colon. Susceptibility artifact is produced by the L1-L3 posterior spinal fusion hardware. No acute skeletal findings compared to the prior CT exams. IMPRESSION: A small calcified gallstone is difficult to visualize with MR imaging. Also, a small calcified stone was present within the cystic duct on recent CT exams, but this is not well seen with MR imaging. There is no convincing evidence of choledocholithiasis. Mild wall thickening of the gallbladder and pericolonic fat stranding could be secondary to cholecystitis and/or reactive changes from adjacent hepatic flexure diverticulitis. No findings to suggest presence of cholangitis. No evidence of periductal edema or hepatic abscess.
[2016-09-29 18:57] VITALS: BP 140/80
--- NOTE | 2016-09-29 22:34 | PN- General Surgery ---
Surgical Brief Attending Note Brief Attending Note: Right upper quadrant pain and inflammation initially on imaging felt to be primarily from the colon but the patient returned with fever and elevated LFTs suggesting cholangitis, having two simultaneous problems such as this would be exceedingly unusual but will check LFTs in the morning, if they are trending back to normal then consider cholecystectomy, unless he is able to wait until Sunday. I discussed the case with surgeon turf sales person this weekend.
[2016-09-29 22:37] VITALS: BP 138/72
[2016-09-30 06:36] VITALS: BP 136/74
--- NOTE | 2016-09-30 08:18 | PN- Housestaff ---
ELDER STEWART 09/30/16 0818: Subjective Follow-up For: abdominal pain Subjective: seen and examined patient. Complains of multiple episodes of nonbloody, yellowish diarrhea. Denies fever, chills, shortness of breath, abdominal pain, nausea, vomiting. States that he is very hungry and would like to eat. Review of Systems Constitutional: Denies: chills, diaphoresis, fever, malaise, weakness, unexplained weight loss. Cardiovascular: Denies: chest pain, edema, orthopena, palpitations, peripheral edema, syncope. Respiratory: Denies: cough, hemoptysis, orthopnea, short of breath, sputum production, stridor, wheezing. Gastrointestinal: Reports: bloating, diarrhea. Objective Last 24 Hrs of Vital Signs/I&O Vital Signs Date Time Temp Pulse Resp B/P B/P Pulse O2 O2 Flow FiO2 Mean Ox Delivery Rate 09/30 0636 99.2 70 20 136/74 94 09/30 0315 97.4 09/29 2237 99.6 68 20 138/72 97 Room Air 09/29 2048 99.4 09/29 1938 100.3 09/29 1857 100.3 63 20 140/80 94 Room Air Room Air 09/29 1800 100.3 63 20 140/80 Intake & Output 09/30 1600 09/30 0800 05/ 0000 Intake Total 800 1700 Output Total 450 101 Balance 350 1599 Intake, IV 800 1100 Intake, Oral 600 Number 3 3 Bowel Movements Output, Stool 101 Output, Urine 450 Patient 224 lb Weight Physical Exam General Appearance: Alert, Oriented X3, Cooperative, No Acute Distress Cardiovascular: Regular Rate, Normal S1, Normal S2 Lungs: Clear to Auscultation, Normal Air Movement Abdomen: Soft, hypoactive bowel sounds, moderate tenderness to palpation in RUQ Current Medications: Current Medications Sig/Fanny Start time Last Medication Dose Route Stop Time Status Admin Acetaminophen 650 MG ONCE ONE 09/29 1914 DC 09/29 PO 09/29 Acetaminophen 650 MG Q4P PRN 09/29 1045 AC PO Ceftriaxone Sodium 1,000 MG DAILY 09/29 1000 AC 09/30 IV 0738 Heparin Sodium 5,000 UNIT Q8 09/28 2200 AC 09/30 (Porcine) SC 0602 Hydromorphone HCl 0.5 MG Q3P PRN 09/28 1815 AC 09/30 IV 1112 Loperamide HCl 2 MG Q6P PRN 09/30 1200 AC PO Lorazepam 0 Q1P PRN 09/28 1945 AC 09/29 IV 0123 Metronidazole 500 MG IQ8 09/29 0000 AC 09/30 N/A 1 UNIT IV 0738 Ondansetron HCl 4 MG Q6P PRN 09/28 1815 AC IV Patient Medication 1 ED ONE ONE 09/29 1430 DC 09/29 Teaching ED 09/29 1431 1430 Sodium Chloride 1,000 ML .Q10H 09/28 1800 AC 09/30 IV 0757 Last 24 Hrs of Lab/Heath Results Last 24 Hrs of Labs/Mics: Laboratory Tests 09/30/16 0635: Anion Gap 13, Estimated GFR > 60, BUN/Creatinine Ratio 15.0, Magnesium 1.8, Total Bilirubin 1.0, Direct Bilirubin 0.5 H, AST 30, ALT 74 H, Alkaline Phosphatase 67, Total Protein 6.2 L, Albumin 3.5, CBC w Diff NO MAN DIFF REQ, RBC 3.73 L, MCV 91.4, MCH 31.6 H, RDW 13.8, MPV 7.8, Gran % 79.2 H, Lymphocytes % 7.8 L, Monocytes % 12.1 H, Eosinophils % 0.8, Basophils % 0.1, Absolute Granulocytes 8.4 H, Absolute Lymphocytes 0.8 L, Absolute Monocytes 1.3 H, Absolute Eosinophils 0.1, Absolute Basophils 0, PUBS MCHC 34.5 Microbiology 09/29 2213 STOOL: Clostridium difficile Toxin A & B - RECD Assessment/Plan Assessment: 61-year-old gentleman with past medical history of hypertension dyslipidemia, Male hypogonadism on testosterone replacement therapy and aromatase inhibitor ( anastrozole) current admission for four-day history of right sided abdominal pain with radiation to the flank and subjective chills. Recently diagnosed with diverticulitis via CT/US imaging. He was discharged to home on oral ciprofloxacin/flagyl but returned 24 hours later with worsening abdominal pain and fever. CT abdomen/pelvis demonstrated acute diverticulitis. Abdominal X-ray was within normal limits. Abdominal Ultrasound on 09/27/16 demonstrated and enlarged echogenic liver consistent with hepatic steatosis and a hypoechoic mass and a distended gallbladder. HIDA scan was Acute Diverticulitis / Sepsis Transaminitis / Elevated bilirubin Low Testosterone / Osteopenia Chronic Low Back Pain Hypertension Plan: Per surgery no surgery today, will be re-evaluated in 24-48 hrs, recommending to advance his diet to clears -Continue Ceftriaxone 1g IV Daily, Flagyl 500mg IV Q8H -Prelim blood cultures show no growth -Anastrozole 1mg PO Daily, Meloxicam 15mg PO Daily and Lisinopril 5mg PO Daily (ON HOLD) -Percocet 1 TAB PO TID Pain Plan-Acetaminophen/Morphine/Dilaudid Bowel Regimen-Senna/Miralax Diet-NPO DVT PPx-Subcutaneous Heparin Code Status-FULL CODE Problem List: 1. Acute diverticulitis 2. Elevated bilirubin 3. Cholecystitis Pain Ratin Pain Location: na Pain Goal: Pain 4 or less Pain Plan: current regimen Tomorrow's Labs & Rationales: none required RAMO SCOTT MD 09/30/16 1726: Attending MD Review Statement Attending Statement Attending MD Statement: examined this patient, discuss w/resident/PA/FACILITY ENGINEER, agreed w/resident/PA/FACILITY ENGINEER, reviewed EMR data (avail) Attending Assessment/Plan: 61M PMH diverticulosis admitted with nausea, vomiting, abdominal pain in the setting of acute diverticulitis. Abdominal pain persists but is improved, having loose stools, no further nausea or vomiting, hemodynamically stable. HIDA scan was done 09/29 which is suggestive of acute cholecystitis. 1. Acute cholecystitis 2. Acute diverticulitis 3. Nausea vomiting Plan - Continue on general medicine - Send C.difficile - Continue Ceftriaxone and Flagyl - Follow cultures - Follow surgery and GI recommendations - Clear liquid diet - Pain and nausea control - Advance diet as tolerated - Continue home medications - DVT PPx
[2016-09-30 08:44] LABS: ABSOLUTE BASOPHIL COUNT 0 /CUMM (0.0-0.2); ABSOLUTE EOSINOPHIL COUNT 0.1 /CUMM (0.0-0.7); ABSOLUTE GRANULOCYTE CT 8.4 /CUMM (1.4-6.5); ABSOLUTE LYMPH COUNT 0.8 /CUMM (1.2-3.4); ABSOLUTE MONOCYTE COUNT 1.3 /CUMM (0.10-0.60); BASOPHIL % 0.1 % (0.0-2.0); EOSINOPHIL % 0.8 % (0-5); GRANULOCYTE % 79.2 % (42.2-75.2); HEMATOCRIT 34.1 % (42-52); MEAN CORPUSCULAR HGB 31.6 PG (27.0-31.0); MEAN CORPUSCULAR HGB CONC 34.5 G/DL (33.0-37.0); MEAN CORPUSCULAR VOLUME 91.4 FL (80.0-94.0); MEAN PLATELET VOLUME 7.8 FL (7.4-10.4); PLATELET COUNT 185 /CUMM (130-400); RBC DISTRIBUTION WIDTH 13.8 % (11.5-14.5); RED BLOOD CELL CT 3.73 /CUMM (4.70-6.10); WHITE BLOOD CELL COUNT 10.6 /CUMM (4.8-10.8)
--- NOTE | 2016-09-30 10:54 | PN- General Surgery ---
Surgical Brief Attending Note Brief Attending Note: Patient seen and examined, this morning at the request of medicine and Dr Melendrez. History and EMR data reviewed. All radiographic studies reviewed. Patient still with abdominal pain and "non-stop" diarrhea. He is hungry and was able to eat/drink last night without increase in pain. Although he did have a + HIDA scan, there was no cholelithiasis/chlecystitis seen on MRI or US. CT scan looks more like diverticulitis than cholecystitis as most of the infammatory changes are around the colon. Although he may benefit from a Lap Charissa, at this time without clear Dx of cholecystitis (although possible) would hold off on surgery and continue IV Abx. Will re-eval in 24-48 hrs. Ok for clears.
--- NOTE | 2016-09-30 12:23 | PN- Gastroenterology ---
Assessment/Plan Assessment/Recommendations: Assessment: Mr. Perez is a 61 year old male who was admitted to [facility] yesterday with diverticulitis and started on IV antibiotics who has since been noted to have evidence of acute cholecystitis on a HIDA scan. His MRCP was negative for choledocolithiasis and his LFTs returned to normal so I suspect he may have passed a small gallstone accounting for his increased LFTs on admission. As his cystic duct does apparently have a few calcified gallstones in it I suspect that a piece may have broken off and traveled through the CBD and passed on its own. He is now having some diarrhea of unclear etiology. Would rule out infectious causes, but in the interim time period I feel it is ok to use loperamide as needed. Recommendations: 1. Diet as tolerated 2. Continue abx 3. Follow up stool studies and use loperamide as needed 4. Surgical follow up for a choecystectomy 5. Analgesia as needed. As LFTs have returned to normal and MRCP was negative for choledocolithiasis will sign off at this time and ask that GI be reconsulted for any new GI issues. Problem List: 1. Acute diverticulitis 2. Elevated bilirubin Subjective Subjective: Pt still has a moderate amount of RUQ pain. He is tolerating a liquid diet. An MRCP done last night was negative for choledocolithiasis. He is also complaining of profuse watery diarrhea and is requesting imodium. Objective Vital Signs and I&Os Vital Signs Date Time Temp Pulse Resp B/P B/P Pulse O2 O2 Flow FiO2 Mean Ox Delivery Rate 09/30 0536 99.2 70 20 136/74 94 09/305 97.4 09/29 2236 99.6 68 20 138/72 97 Room Air 09/30 2047 99.4 09/29 193 100.3 09/29 1857 100.3 63 20 140/80 94 Room Air Room Air 09/29 1800 100.3 63 20 140/80 Intake & Output 09/30 1600 09/30 0400 09/29 1600 09/29 0400 09/28 1600 09/28 0400 Intake Total 800 1700 1220 650 Output Total 450 101 150 Balance 350 1599 1220 500 Intake, IV 800 1100 1200 300 Intake, Oral 600 20 350 Number 3 3 2 Bowel Movements Output, Stool 101 Output, Urine 450 150 Patient 224 lb 225 lb Weight Weight Reported by Patient Measurement Method Physical Exam General Appearance: well developed/nourished, alert, awake, mild distress Head: atraumatic, normal appearance Ears, Nose, Throat: normal pharynx, normal ENT inspection Neck: normal inspection, supple, full range of motion Respiratory: normal breath sounds, chest non-tender Cardiovascular: regular rate/rhythm Abdomen: normal bowel sounds, soft, tenderness Rectal: deferred Back: normal inspection, normal range of motion Extremities: normal inspection, normal range of motion Skin: intact, normal color, warm/dry Current Medications: Current Medications Sig/Fanny Start time Last Medication Dose Route Stop Time Status Admin Acetaminophen 650 MG ONCE ONE 09/29 1914 DC 09/29 PO 09/29 191 1938 Acetaminophen 650 MG Q4P PRN 09/29 1045 AC PO Ceftriaxone Sodium 1,000 MG DAILY 09/29 1000 AC 09/30 IV 0738 Heparin Sodium 5,000 UNIT Q8 09/28 2200 AC 09/30 (Porcine) SC 0602 Hydromorphone HCl 0.5 MG Q3P PRN 09/28 1815 AC 09/30 IV 1112 Loperamide HCl 2 MG Q6P PRN 09/30 1200 AC PO Lorazepam 0 Q1P PRN 09/28 1945 AC 09/29 IV 0123 Metronidazole 500 MG IQ8 09/29 0000 AC 09/30 N/A 1 UNIT IV 0738 Ondansetron HCl 4 MG Q6P PRN 09/28 1815 AC IV Patient Medication 1 ED ONE ONE 09/29 1430 DC 09/29 Teaching ED 09/29 1431 1430 Sodium Chloride 1,000 ML .Q10H 09/28 1800 AC 09/30 IV 0757 Results Pertinent Lab Results: Laboratory Tests 09/30 09/29 0635 0630 Chemistry Sodium (137 - 145 mmol/L) 135 L 134 L Potassium (3.5 - 5.1 mmol/L) 3.8 3.9 Chloride (98 - 107 mmol/L) 99 99 Carbon Dioxide (22 - 30 mmol/L) 23 23 Anion Gap (5 - 16) 13 11 BUN (9 - 20 mg/dL) 12 10 Creatinine (0.7 - 1.2 mg/dL) 0.8 0.9 Estimated GFR (>60 ml/min) > 60 > 60 BUN/Creatinine Ratio (7 - 25 %) 15.0 11.1 Magnesium (1.6 - 2.3 mg/dL) 1.8 Total Bilirubin (0.2 - 1.3 mg/dL) 1.0 2.1 H Direct Bilirubin (< 0.4 mg/dL) 0.5 H 1.1 H AST (17 - 59 U/L) 30 61 H ALT (21 - 72 U/L) 74 H 97 H Alkaline Phosphatase (< 127 U/L) 67 69 Total Protein (6.3 - 8.2 g/dL) 6.2 L 6.5 Albumin (3.5 - 5.0 g/dL) 3.5 3.8 Hematology CBC w Diff NO MAN DIFF REQ NO MAN DIFF REQ WBC (4.8 - 10.8 /CUMM) 10.6 11.1 H RBC (4.70 - 6.10 /CUMM) 3.73 L 4.05 L Hgb (14.0 - 18.0 G/DL) 11.8 L 12.9 L Hct (42 - 52 %) 34.1 L 37.2 L MCV (80.0 - 94.0 FL) 91.4 91.9 MCH (27.0 - 31.0 PG) 31.6 H 31.9 H RDW (11.5 - 14.5 %) 13.8 13.7 Plt Count (130 - 400 /CUMM) 185 168 MPV (7.4 - 10.4 FL) 7.8 8.0 Gran % (42.2 - 75.2 %) 79.2 H 79.6 H Lymphocytes % (20.5 - 51.1 %) 7.8 L 7.8 L Monocytes % (1.7 - 9.3 %) 12.1 H 11.8 H Eosinophils % (0 - 5 %) 0.8 0.6 Basophils % (0.0 - 2.0 %) 0.1 0.2 Absolute Granulocytes (1.4 - 6.5 /CUMM) 8.4 H 8.8 H Absolute Lymphocytes (1.2 - 3.4 /CUMM) 0.8 L 0.9 L Absolute Monocytes (0.10 - 0.60 /CUMM) 1.3 H 1.3 H Absolute Eosinophils (0.0 - 0.7 /CUMM) 0.1 0.1 Absolute Basophils (0.0 - 0.2 /CUMM) 0 0 PUBS MCHC (33.0 - 37.0 G/DL) 34.5 34.7 09/28 1722 Chemistry Sodium (137 - 145 mmol/L) 131 L Potassium (3.5 - 5.1 mmol/L) 3.8 Chloride (98 - 107 mmol/L) 94 L Carbon Dioxide (22 - 30 mmol/L) 23 Anion Gap (5 - 16) 14 BUN (9 - 20 mg/dL) 10 Creatinine (0.7 - 1.2 mg/dL) 1.0 Estimated GFR (>60 ml/min) > 60 BUN/Creatinine Ratio (7 - 25 %) 10.0 Glucose (65 - 99 mg/dL) 134 H Lactic Acid (0.7 - 2.1 mmol/L) Cancelled 0.7 Calcium (8.4 - 10.2 mg/dL) 8.9 Total Bilirubin (0.2 - 1.3 mg/dL) 3.0 H Direct Bilirubin (< 0.4 mg/dL) 1.3 H AST (17 - 59 U/L) 80 H ALT (21 - 72 U/L) 101 H Alkaline Phosphatase (< 127 U/L) 63 Total Protein (6.3 - 8.2 g/dL) 7.4 Albumin (3.5 - 5.0 g/dL) 4.3 Globulin (1.9 - 4.2 gm/dL) 3.1 Albumin/Globulin Ratio (1.1 - 2.2 %) 1.4 Lipase (23 - 300 U/L) 39 Hematology CBC w Diff NO MAN DIFF REQ WBC (4.8 - 10.8 /CUMM) 12.0 H RBC (4.70 - 6.10 /CUMM) 4.26 L Hgb (14.0 - 18.0 G/DL) 13.5 L Hct (42 - 52 %) 38.8 L MCV (80.0 - 94.0 FL) 91.0 MCH (27.0 - 31.0 PG) 31.7 H RDW (11.5 - 14.5 %) 13.5 Plt Count (130 - 400 /CUMM) 181 MPV (7.4 - 10.4 FL) 7.4 Gran % (42.2 - 75.2 %) 82.6 H Lymphocytes % (20.5 - 51.1 %) 6.1 L Monocytes % (1.7 - 9.3 %) 10.7 H Eosinophils % (0 - 5 %) 0.4 Basophils % (0.0 - 2.0 %) 0.2 Absolute Granulocytes (1.4 - 6.5 /CUMM) 9.9 H Absolute Lymphocytes (1.2 - 3.4 /CUMM) 0.7 L Absolute Monocytes (0.10 - 0.60 /CUMM) 1.3 H Absolute Eosinophils (0.0 - 0.7 /CUMM) 0.1 Absolute Basophils (0.0 - 0.2 /CUMM) 0 PUBS MCHC (33.0 - 37.0 G/DL) 34.8 Imaging/Other Studies: EXAM TYPE: MRI - MRI-ABDOMEN EXAMINATION: MR ABDOMEN WITHOUT CONTRAST CLINICAL INFORMATION: 61-year-old male with right upper quadrant pain and leukocytosis. Diverticulitis and cholecystitis. Possible cholangitis. COMPARISON: CT images of abdomen pelvis from 09/27/2016 and 09/28/2016. TECHNIQUE: MR imaging of the abdomen was performed on a high-field 1.5 Rain magnet using standard magnetic resonance cholangiopancreatography protocol. FINDINGS: Mild atelectasis within lower lobes. No pericardial or pleural effusion. There is diffuse hepatic steatosis. No focal, suspicious hepatic lesion or intrahepatic bile duct dilatation. Gallbladder is moderately distended and its wall measures up to 3-4 mm thick. The small, calcified gallstone within the gallbladder lumen observed on recent CT exams is difficult to visualize with MR imaging. Also, there was a small calcified stone within the cystic duct on recent CT exams (image 227, series 3, 09/28/2016). There are no stones identified within the common duct. Common bile duct is normal in caliber; it measures up to 6-7 mm diameter. Pancreas is normal. No pancreatic divisum. Diverticula of the third portion of the duodenum are adjacent to the pancreatic head. Spleen is normal. Adrenal glands are normal. Kidneys are normal in size.. A peripelvic cyst at the lower pole the right kidney measures up to 1.7 cm. No suspicious renal lesion or hydronephrosis. The atherosclerotic abdominal aorta is normal in caliber. No pathologic sized periportal, mesenteric or retroperitoneal lymph nodes. The visualized loops of bowel are normal in caliber. Again noted is pericolonic edema around the hepatic flexure and around the adjacent gallbladder. There are diverticula of the colon. Susceptibility artifact is produced by the L1-L3 posterior spinal fusion hardware. No acute skeletal findings compared to the prior CT exams. IMPRESSION: A small calcified gallstone is difficult to visualize with MR imaging. Also, a small calcified stone was present within the cystic duct on recent CT exams, but this is not well seen with MR imaging. There is no convincing evidence of choledocholithiasis. Mild wall thickening of the gallbladder and pericolonic fat stranding could be secondary to cholecystitis and/or reactive changes from adjacent hepatic flexure diverticulitis. No findings to suggest presence of cholangitis. No evidence of periductal edema or hepatic abscess.
[2016-09-30 14:50] VITALS: BP 134/84
[2016-09-30 22:37] VITALS: BP 138/78
[2016-10-01] VITALS (8 sets, daily range): BP systolic 132–152; BP diastolic 74–86
--- NOTE | 2016-10-01 07:53 | PN- Housestaff ---
ELDER STEWART 10/01/16 0753: Subjective Follow-up For: abdominal pain Subjective: Seen and examined patient. Had some nightsweats overnight. Denies fevers, chills, shortness of breath. Had no diarrhea overnight and one episode this morning. States his pain is controlled. Review of Systems Constitutional: Denies: chills, diaphoresis, fever, malaise, weakness, unexplained weight loss. Cardiovascular: Denies: chest pain, edema, orthopena, palpitations, peripheral edema, syncope. Respiratory: Denies: cough, hemoptysis, orthopnea, short of breath, sputum production, stridor, wheezing. Objective Last 24 Hrs of Vital Signs/I&O Vital Signs Date Time Temp Pulse Resp B/P B/P Pulse O2 O2 Flow FiO2 Mean Ox Delivery Rate 10/01 0655 98.0 61 20 152/86 97 09/30 2237 99.0 70 20 138/78 97 Room Air 09/30 1450 98.7 72 18 134/84 95 Room Air Intake & Output 10/01 1600 10/01 0800 10/01 0000 Intake Total 370 220 Output Total 400 Balance 370 -180 Intake, IV 130 100 Intake, Oral 240 120 Output, Urine 400 Physical Exam General Appearance: Alert, Oriented X3, Cooperative, No Acute Distress Cardiovascular: Regular Rate, Normal S1, Normal S2 Lungs: Clear to Auscultation, Normal Air Movement Abdomen: Soft, hyperactive bowel sounds, tenderness to palpation over RUQ Extremities: No Edema Current Medications: Current Medications Sig/Fanny Start time Last Medication Dose Route Stop Time Status Admin Acetaminophen 650 MG Q4P PRN 09/29 1045 AC PO Ceftriaxone Sodium 1,000 MG DAILY 09/29 1000 AC 10/01 IV 0815 Heparin Sodium 5,000 UNIT Q8 09/28 2200 AC 09/30 (Porcine) SC 2215 Hydromorphone HCl 0.5 MG Q3P PRN 09/28 1815 AC 09/30 IV 1112 Loperamide HCl 2 MG Q6P PRN / 1200 AC 09/30 PO 2214 Lorazepam 0 Q1P PRN 09/28 1945 AC 09/29 IV 0123 Metronidazole 500 MG IQ8 09/29 0000 AC 10/01 N/A 1 UNIT IV 0815 Ondansetron HCl 4 MG Q6P PRN 09/28 1815 AC IV Last 24 Hrs of Lab/Heath Results Last 24 Hrs of Labs/Mics: Laboratory Tests 10/01/16 0630: Anion Gap 11, Estimated GFR > 60, BUN/Creatinine Ratio 12.2, Total Bilirubin 0.6 , Direct Bilirubin 0.4, AST 31, ALT 61, Alkaline Phosphatase 77, Total Protein 6.2 L, Albumin 3.3 L, CBC w Diff Pending, WBC Pending, RBC Pending, Hgb Pending, Hct Pending, MCV Pending, MCH Pending, RDW Pending, Plt Count Pending, MPV Pending, PUBS MCHC Pending Assessment/Plan Assessment: 61-year-old gentleman with past medical history of hypertension dyslipidemia, Male hypogonadism on testosterone replacement therapy and aromatase inhibitor ( anastrozole) current admission for four-day history of right sided abdominal pain with radiation to the flank and subjective chills. Recently diagnosed with diverticulitis via CT/US imaging. He was discharged to home on oral ciprofloxacin/flagyl but returned 24 hours later with worsening abdominal pain and fever. CT abdomen/pelvis demonstrated acute diverticulitis. Abdominal X-ray was within normal limits. Abdominal Ultrasound on 09/27/16 demonstrated and enlarged echogenic liver consistent with hepatic steatosis and a hypoechoic mass and a distended gallbladder. Gallbladder is not visualized on HIDA scanm suggestive of acute cholecystitis. problem list Cholecystitis/ Sepsis Transaminitis / Elevated bilirubin Low Testosterone / Osteopenia Chronic Low Back Pain Hypertension hypokalemia Plan: afebrile, normal white count. -transaminits and bili trending down -will touch base with surgery to see if he should be NPO for cholecystectomy tommorrow -Continue Ceftriaxone 1g IV Daily, Flagyl 500mg IV Q8H -Prelim blood cultures show no growth -potassium repleted -Anastrozole 1mg PO Daily, Meloxicam 15mg PO Daily and Lisinopril 5mg PO Daily (ON HOLD) -Percocet 1 TAB PO TID Pain Plan-Acetaminophen/Morphine/Dilaudid Bowel Regimen-Senna/Miralax Diet-NPO DVT PPx-Subcutaneous Heparin Code Status-FULL CODE Problem List: 1. Acute diverticulitis 2. Cholecystitis 3. Elevated bilirubin Pain Ratin Pain Location: ruq Pain Goal: Pain 4 or less Pain Plan: current regimen Tomorrow's Labs & Rationales: bep/inr/ptt/type and cross match RAMO SCOTT MD 10/01/16 1327: Attending MD Review Statement Attending Statement Attending MD Statement: examined this patient, discuss w/resident/PA/AUTOMATION CONTROLS ENGINEER, agreed w/resident/PA/AUTOMATION CONTROLS ENGINEER, reviewed EMR data (avail) Attending Assessment/Plan: 61M PMH diverticulosis admitted with nausea, vomiting, abdominal pain in the setting of acute diverticulitis. Abdominal pain persists but is improved, having loose stools, no further nausea or vomiting, hemodynamically stable. HIDA scan was done 09/29 which is suggestive of acute cholecystitis. Patient feels well today and is playing the piano beautifully. He has no complaints. 1. Acute cholecystitis 2. Acute diverticulitis 3. Nausea vomiting Plan - Continue on general medicine - Follow up C.difficile - Continue Ceftriaxone and Flagyl - Follow cultures - Follow surgery and GI recommendations - Clear liquid diet, NPO after midnight - Pain and nausea control - Advance diet as tolerated - Continue home medications - DVT PPx
[2016-10-01 09:17] LABS: ABSOLUTE BASOPHIL COUNT 0 /CUMM (0.0-0.2); ABSOLUTE EOSINOPHIL COUNT 0.2 /CUMM (0.0-0.7); ABSOLUTE GRANULOCYTE CT 4.5 /CUMM (1.4-6.5); ABSOLUTE MONOCYTE COUNT 0.9 /CUMM (0.10-0.60); BASOPHIL % 0.4 % (0.0-2.0); EOSINOPHIL % 2.6 % (0-5); GRANULOCYTE % 68.5 % (42.2-75.2); HEMATOCRIT 33.9 % (42-52); MEAN CORPUSCULAR HGB 31.3 PG (27.0-31.0); MEAN CORPUSCULAR HGB CONC 34.2 G/DL (33.0-37.0); MEAN CORPUSCULAR VOLUME 91.7 FL (80.0-94.0); MEAN PLATELET VOLUME 7.6 FL (7.4-10.4); PLATELET COUNT 211 /CUMM (130-400); RBC DISTRIBUTION WIDTH 14.3 % (11.5-14.5); WHITE BLOOD CELL COUNT 6.6 /CUMM (4.8-10.8)
--- NOTE | 2016-10-01 09:20 | PN- General Surgery ---
Subjective Subjective: Patient feeling well today. Reports an episode of diaphoresis overnight and states that his discomfort and malaise has decreased since. Has had less diarrhea over the past several hours. Denies nausea and vomitting. Denies chest pain, shortness of breath and difficulty breathing. Objective Vital Signs and I&Os Vital Signs Date Time Temp Pulse Resp B/P B/P Pulse O2 O2 Flow FiO2 Mean Ox Delivery Rate 10/01 0555 98.0 61 20 152/86 97 09/30 2237 99.0 70 20 138/78 97 Room Air 09/30 1450 98.7 72 18 134/84 95 Room Air Intake & Output 10/01 1600 10/01 0800 / 0000 09/30 1600 09/30 0800 09/30 0000 Intake Total 164 021 9301 800 1700 Output Total 400 500 450 101 Balance 370 -180 273 569 7614 Intake, IV 130 100 669 231 8738 Intake, Oral 240 120 600 600 Number 3 3 Bowel Movements Output, Stool 101 Output, Urine 400 500 450 Patient 224 lb Weight Physical Exam: General: Alert and oriented x3, no acute distress Cardiac: RRR, s1s2 Pulmonary: C TA bialterally Abdomen: Soft, non-distended, some tenderness with RUQ palpation Extremities: Moves all extremties, distal sensation intact. Skin warm and well perfused, dry at this time. Bilateral calves soft and non-tender. Assessment/Plan Assessment/Plan This is a 61 year old male, hospital day 1 with abdominal discomfort, diverticulitis and possible cholecystits. -Continue rocephin and flagyl for now -Continue clear liquid diet today, consider npo after midnight if cholecystectomy is planned for tomorrow. Patient will be reassessed by attending today and decision regarding surgery will be made at that time.
[2016-10-02] VITALS: BP 142/76
--- NOTE | 2016-10-02 06:34 | PN- Housestaff ---
Assessment/Plan Assessment: 61-year-old gentleman with past medical history of hypertension dyslipidemia, Male hypogonadism on testosterone replacement therapy and aromatase inhibitor ( anastrozole) current admission for four-day history of right sided abdominal pain with radiation to the flank and subjective chills. Recently diagnosed with diverticulitis via CT/US imaging. He was discharged to home on oral ciprofloxacin/flagyl but returned 24 hours later with worsening abdominal pain and fever. CT abdomen/pelvis demonstrated acute diverticulitis. Abdominal X-ray was within normal limits. Abdominal Ultrasound on 09/27/16 demonstrated and enlarged echogenic liver consistent with hepatic steatosis and a hypoechoic mass and a distended gallbladder. Gallbladder is not visualized on HIDA scanm suggestive of acute cholecystitis. problem list Cholecystitis/ Sepsis Transaminitis / Elevated bilirubin Low Testosterone / Osteopenia Chronic Low Back Pain Hypertension hypokalemia Plan: afebrile, normal white count. -transaminits and bili trending down -will touch base with surgery to see if he should be NPO for cholecystectomy tommorrow -Continue Ceftriaxone 1g IV Daily, Flagyl 500mg IV Q8H -Prelim blood cultures show no growth -potassium repleted -Anastrozole 1mg PO Daily, Meloxicam 15mg PO Daily and Lisinopril 5mg PO Daily (ON HOLD) -Percocet 1 TAB PO TID Pain Plan-Acetaminophen/Morphine/Dilaudid Bowel Regimen-Senna/Miralax Diet-NPO DVT PPx-Subcutaneous Heparin Code Status-FULL CODE
[2016-10-02 06:38] VITALS: BP 142/84
--- NOTE | 2016-10-02 07:12 | PN- Housestaff ---
JIMENEZ BURGESS,MOHSEN 10/02/16 0711: Subjective Follow-up For: Acute Cholecystitis Acute/Recurrent Diverticulitis Subjective: Patient seen and examined. He is seen lying flat in bed resting comfortably. He appears to be in no acute distress. He reports moderate abdominal discomfort but otherwise denies any further nausea/vomiting. He is now passing gas today for the first time in four days. His bowel movements are admitted lose. He is requesting to "have the surgery" so that he can go to his fishing trip in [place] on October 14. He otherwise slept well and denies any new subjective complaints. Additionally he denies any headache, fever, chills, chest pain, palpitations, shortness of breath, cough, worsening nausea/further vomiting. No overnight events reported. Review of Systems Constitutional: Reports: see HPI. Objective Last 24 Hrs of Vital Signs/I&O Vital Signs Date Time Temp Pulse Resp B/P B/P Pulse O2 O2 Flow FiO2 Mean Ox Delivery Rate 10/02 0638 97.9 57 20 142/84 97 / 0000 98.9 73 20 142/76 05/08 0000 98.9 73 20 142/76 05/07 2225 98.9 73 20 142/76 96 Room Air / 2200 98.9 63 20 132/74 05/07 2000 98.9 63 20 132/74 05/07 1843 98.9 63 20 132/74 97 Room Air /07 1800 98.9 63 20 150/85 /07 1600 98.1 63 20 150/85 05/07 1432 98.1 63 20 150/85 97 Room Air Intake & Output 10/02 1600 10/02 0800 10/02 0000 Intake Total 110 480 Output Total 350 500 Balance -240 -20 Intake, IV 110 Intake, Oral 480 Output, Urine 350 500 Physical Exam General Appearance: Alert, Oriented X3, Cooperative, No Acute Distress Other Physical Findings: General- well developed, well nourished middled aged man in no acute distress HEENT- NCAT, EOMI, PERRL, anicteric sclera CVS- S1, S2 w/o m/g/r Resp- CTA bilaterally GI- Soft, mild diffuse tenderness, nondistended, bowel sounds intact Neuo- Awake and alert, CN II-XII grossly intact Ext- normal pulses, no cyanosis/clubbing/edema Current Medications: Current Medications Sig/Fanny Start time Last Medication Dose Route Stop Time Status Admin Acetaminophen 650 MG Q4P PRN 09/29 1045 AC PO Ceftriaxone Sodium 1,000 MG DAILY 09/29 1000 AC 10/02 IV 0929 Heparin Sodium 5,000 UNIT Q8 09/28 2200 AC 10/01 (Porcine) SC 2121 Hydromorphone HCl 0.5 MG Q3P PRN 09/28 1815 AC 09/30 IV 1112 Loperamide HCl 2 MG Q6P PRN 09/30 1200 AC 10/01 PO 1604 Lorazepam 0 Q1P PRN 09/28 1945 AC 09/29 IV 0123 Melatonin 5 MG AT BEDTIME 10/02 0100 AC 10/02 PO 0126 Metronidazole 500 MG IQ8 09/29 0000 AC 10/02 N/A 1 UNIT IV 0929 Ondansetron HCl 4 MG Q6P PRN 09/28 1815 AC IV Last 24 Hrs of Lab/Heath Results Last 24 Hrs of Labs/Mics: Laboratory Tests 10/02/16 0626: Anion Gap 9, Estimated GFR > 60, BUN/Creatinine Ratio 12.2, PT 12.8 H, INR 1.22 H, APTT 30 Assessment/Plan Assessment: 61-year-old gentleman with past medical history of hypertension dyslipidemia, Male hypogonadism on testosterone replacement therapy and aromatase inhibitor ( anastrozole) current admission for four-day history of right sided abdominal pain with radiation to the flank and subjective chills. Recently diagnosed with diverticulitis via CT/US imaging. He was discharged to home on oral ciprofloxacin/flagyl but returned 24 hours later with worsening abdominal pain and fever. CT abdomen/pelvis demonstrated acute diverticulitis. Abdominal X-ray was within normal limits. Abdominal Ultrasound on 09/27/16 demonstrated and enlarged echogenic liver consistent with hepatic steatosis and a hypoechoic mass and a distended gallbladder. Gallbladder is not visualized on HIDA scanm suggestive of acute cholecystitis. Hospital Day 5 Patient was kept NPO overnight in anticipation for a surgical procedure today. He reports moderate/persistent epigastric / right upper quadrant discomfort. He was seen and evaluated by the surgical team whom decided to procedure with the cholecystectomy this afternoon. He remains afebrile without leukocytosis while on intravenous antibiotics. Acute Diverticulitis / Sepsis / Cholecystitis Patient with history of diverticulosis/diverticulitis seen in the ED the day prior to admission and diagnosed with diverticulitis via CT/US imaging. He was discharged to home on oral ciprofloxacin/flagyl but returned 24 hours later with worsening abdominal pain and fever. Patient meets criteria for sepsis by temperature, leukocytosis, and active infection. Patient had a colonoscopy on by Dr. Pride that identified diverticulosis and was otherwise within normal limits. Vitals initially signifcant for temp 101.1, BP 159/92. Significant labs WBC 12.0, Hgb/Hct 13.5/38.8, T. bili 3.0(up from 1.8 yesterday) , Lactic acid normal. CT abdomen/pelvis demonstrated acute diverticulitis. Abdominal X-ray was within normal limits. Clinically patient continues to have an atypical presentation of diverticulitis in the right colon with associated sepsis. HIDA demonstrated an absent gallbladder suggestive of cholecystitis. MRCP did not identify any choleangitis. -General Medicine -NPO for cholecystectomy -Ceftriaxone 1g IV Daily -Flagyl 500mg IV Q8H -Zofran 4mg IV Q6H PRN nausea -F/U cultures & sensitivites Transaminitis / Elevated bilirubin Abdominal Ultrasound on 09/27/16 demonstrated and enlarged echogenic liver consistent with hepatic steatosis and a hypoechoic mass and a distended gallbladder. CT scan today and yesterday further commment on a distended gallbladder without evidence of cholecystitis. Liver function tests the day prior to admission were normal. Bilirubin was previously 1.8, now 3.0. -F/U HIDA scan Current Everyday Consumption of Alcohol Patient admits to drinking one beer and 1-2 shots each day. -[facility] protocol -Ativan PRN per [facility] Low Testosterone / Osteopenia -Anastrozole 1mg PO Daily (ON HOLD) Chronic Low Back Pain Patient of pain management physican Dr. Dennis of [place]. -Meloxicam 15mg PO Daily (ON HOLD) -Percocet 1 TAB PO TID Hypertension-Lisinopril 5mg PO Daily (ON HOLD) Pain Plan-Acetaminophen/Morphine/Dilaudid Bowel Regimen-Senna/Miralax Diet-NPO DVT PPx-Subcutaneous Heparin Code Status-FULL CODE Problem List: 1. Cholecystitis 2. Acute diverticulitis 3. Elevated bilirubin Pain Ratin Pain Location: Abdomen Pain Goal: Pain 7 or less Pain Plan: See assessment Tomorrow's Labs & Rationales: CBC-post op KASH BURGESS,KIEL 10/02/16 1354: Attending MD Review Statement Attending Statement Attending MD Statement: examined this patient, discuss w/resident/PA/PULP HOUSE SUPERVISOR, agreed w/resident/PA/PULP HOUSE SUPERVISOR, discussed with family, reviewed EMR data (avail), discussed with nursing, discussed with case mgmt, amended to note Attending Assessment/Plan: Patient seen and examined. Lying comfortably in bed. Doesn't appear to be any acute distress. Denies nausea vomiting. Admits to some abdominal pain on and off. He remains afebrile and hemodynamically stable. Abdomen is soft, with mild right upper quadrant tenderness. No rebound. No guarding. Normal bowel sounds. He is scheduled to go for laparoscopic cholecystectomy later on today. We'll monitor closely for the next 24 -48 hours. He remains afebrile hemodynamically stable may be discharged home. He will continue antibiotic therapy for total of 14 days for his diverticulitis. He will follow-up with GI services and outpatient. He appears quite comfortable in his current regimen.
--- NOTE | 2016-10-02 08:15 | PN- General Surgery ---
Subjective Subjective: Continues to have right sided upper abdominal pain. No overnight events. No nausea, vomiting, fever, chills. Continuous to have bowel function. He is requesting for surgery to remove the gallbladder and does not want to undergo any further imaging studies . Objective Vital Signs and I&Os Vital Signs Date Time Temp Pulse Resp B/P B/P Pulse O2 O2 Flow FiO2 Mean Ox Delivery Rate 10/02 0538 97.9 57 20 142/84 97 /08 0000 98.9 73 20 142/76 05/08 0000 98.9 73 20 142/76 05/07 2225 98.9 73 20 142/76 96 Room Air 10/01 2200 98.9 63 20 132/74 05/07 2000 98.9 63 20 132/74 /07 1843 98.9 63 20 132/74 97 Room Air / 1800 98.9 63 20 150/85 /07 1600 98.1 63 20 150/85 / 1432 98.1 63 20 150/85 97 Room Air Intake & Output 10/02 1600 10/02 0800 10/02 0000 10/01 1600 10/01 0800 10/01 0000 Intake Total 110 480 710 370 220 Output Total 350 500 400 Balance -240 -20 710 370 -180 Intake, IV 110 110 130 100 Intake, Oral 480 600 240 120 Number 1 Bowel Movements Output, Urine 350 500 400 Physical Exam: He is in no distress resting comfortably in bed .Alert oriented 3. Lungs sounds were clear to auscultation bilaterally. No additional sounds were appreciated. Heart was regular rate and rhythm. Abdomen is soft tender in right upper quadrant with positive Weinberg's signs, and tender in right mid abdomen no rebound or guarding Current Medications: Current Medications Sig/Fanny Start time Last Medication Dose Route Stop Time Status Admin Acetaminophen 650 MG Q4P PRN 09/29 1045 AC PO Ceftriaxone Sodium 1,000 MG DAILY 09/29 1000 AC 10/01 IV 0815 Heparin Sodium 5,000 UNIT Q8 09/28 2200 AC 10/01 (Porcine) SC 2121 Hydromorphone HCl 0.5 MG Q3P PRN 09/28 1815 AC 09/30 IV 1112 Loperamide HCl 2 MG Q6P PRN 09/30 1200 AC 10/01 PO 1604 Lorazepam 0 Q1P PRN 09/28 1945 AC 09/29 IV 0123 Melatonin 5 MG AT BEDTIME 10/02 0100 AC 10/02 PO 0126 Metronidazole 500 MG IQ8 09/29 0000 AC 10/02 N/A 1 UNIT IV 0004 Ondansetron HCl 4 MG Q6P PRN 09/28 1815 AC IV Potassium Chloride 40 MEQ ONCE ONE 10/01 1100 DC 10/01 PO 10/01 1101 1221 Results Last 48 Hours of Labs: Laboratory Tests 10/02 10/01 0626 0630 Chemistry Sodium (137 - 145 mmol/L) 139 137 Potassium (3.5 - 5.1 mmol/L) 3.8 3.4 L Chloride (98 - 107 mmol/L) 102 100 Carbon Dioxide (22 - 30 mmol/L) 29 26 Anion Gap (5 - 16) 9 11 BUN (9 - 20 mg/dL) 11 11 Creatinine (0.7 - 1.2 mg/dL) 0.9 0.9 Estimated GFR (>60 ml/min) > 60 > 60 BUN/Creatinine Ratio (7 - 25 %) 12.2 12.2 Total Bilirubin (0.2 - 1.3 mg/dL) 0.6 Direct Bilirubin (< 0.4 mg/dL) 0.4 AST (17 - 59 U/L) 31 ALT (21 - 72 U/L) 61 Alkaline Phosphatase (< 127 U/L) 77 Total Protein (6.3 - 8.2 g/dL) 6.2 L Albumin (3.5 - 5.0 g/dL) 3.3 L Coagulation PT Pending INR Pending APTT Pending Hematology CBC w Diff NO MAN DIFF REQ WBC (4.8 - 10.8 /CUMM) 6.6 RBC (4.70 - 6.10 /CUMM) 3.70 L Hgb (14.0 - 18.0 G/DL) 11.6 L Hct (42 - 52 %) 33.9 L MCV (80.0 - 94.0 FL) 91.7 MCH (27.0 - 31.0 PG) 31.3 H RDW (11.5 - 14.5 %) 14.3 Plt Count (130 - 400 /CUMM) 211 MPV (7.4 - 10.4 FL) 7.6 Gran % (42.2 - 75.2 %) 68.5 Lymphocytes % (20.5 - 51.1 %) 14.9 L Monocytes % (1.7 - 9.3 %) 13.6 H Eosinophils % (0 - 5 %) 2.6 Basophils % (0.0 - 2.0 %) 0.4 Absolute Granulocytes (1.4 - 6.5 /CUMM) 4.5 Absolute Lymphocytes (1.2 - 3.4 /CUMM) 1.0 L Absolute Monocytes (0.10 - 0.60 /CUMM) 0.9 H Absolute Eosinophils (0.0 - 0.7 /CUMM) 0.2 Absolute Basophils (0.0 - 0.2 /CUMM) 0 PUBS MCHC (33.0 - 37.0 G/DL) 34.2 Assessment/Plan Assessment/Plan 61 is old male with history of diverticulitis admitted with abdominal discomfort, imaging image findings were consistent with right-sided diverticulitis and HIDA positive for acute cholecystitis. Continues to have right upper quadrant pain tenderness. Therefore the plan is: -Continue rocephin and flagyl for now -keep npo for diet . -Discussed with the attending Dr. Aneesh MD the above findings and plan to procedure to the operating room for cholecystectomy if possible later today. Core Measures/Miscellaneous Venous Thromboembolism VTE Risk Factors: Age > 40 VTE Contraindications: No Contraindications VTE Diagnosis: No VTE Type: NONE VTE Confirmed by (Test): NONE Beta Elena Is Beta Elena a Home Med? Yes Antibiotics Is Patient on Antibiotics? Yes
[2016-10-02 08:17] LABS: PT 12.8 SEC (9.4-12.5); PTT 30 SEC (25-37)
[2016-10-02 14:31] VITALS: BP 150/84
--- NOTE | 2016-10-02 17:09 | Cons- General Surgery ---
General Information and HPI Consulting Request Date of Consult: 10/02/16 Requested By: KIEL HEWITT M.D History of Present Illness: CC: abdominal pain HPI: 61-year-old nondiabetic, ex-smoker who is been having some indigestion for the past 6 months on and off taking lots of toms but during the past month the symptoms intensified and he came to the ER last week with significant right upper quadrant pain, at that time no fevers no sweats doesn't recall relationship to food is no family history of gallbladder problems, emergency room workup showed that his right upper quadrant pain was probably caused by focal diverticulitis at the hepatic flexure ultrasound at that time showed no gallstones but some secondary inflammatory changes from the colon so he was discharged home on antibiotics but he had a fever and came back the next day and has been admitted to the medical service since that time he had some low-grade temperatures but his symptoms improved over the weekend his pain is no longer significant he's having a few episodes of diarrhea or fevers or sweats no nausea is tolerating some liquids diet, also in the interim he had a HIDA scan and an MRCP serial labs show a transient elevation in his LFTs, during which time he did notice that his urine was a little bit darker. Otherwise no changes bowel habits, weight or appetite. I've reviewed the [facility]. No history of GERD, PUD, bleeding problems, heart disease or issues with anesthesia. Surgical history includes bilateral inguinal hernia repair wrist fusion spinal fusion, family history negative for gallbladder disease or heart disease. Allergies/Medications Allergies: Coded Allergies: NO KNOWN ALLERGIES (01/10/11) Home Med List: Anastrozole 1 MG TABLET 1 TAB PO DAILY CONTROL HORMONES (Reported) Calcium Carbonate/Vitamin D3 (Calcium 500 + D Tablet) 500 MG-400 TABLET 1 TAB PO DAILY CALCIUM SUPPLEMENT (Reported) Cholecalciferol (Vitamin D3) 1,000 UNIT TABLET 1 TAB PO DAILY VITAMIN SUPPORT (Reported) Ciprofloxacin HCl (Cipro) 500 MG TABLET 1 TAB PO BID DIVERTICULITIS Cyanocobalamin (Vitamin B-12) 1,000 MCG TABLET 1 TAB PO DAILY VITAMIN SUPPORT (Reported) Folic Acid 1 MG TABLET 1 TAB PO DAILY VITAMIN SUPPORT (Reported) Lisinopril 5 MG TABLET 1 TAB PO DAILY BP (Reported) Meloxicam 15 MG TABLET 1 TAB PO DAILY PAIN (Reported) Metronidazole (Flagyl) 500 MG TABLET 1 TAB PO TID DIVERTICULITIS [place]-3 Fatty Acids/Fish Oil (Fish Oil 1,000 MG Capsule) 340 MG-1,000 MG CAPSULE 1 CAP PO DAILY SUPPLEMENT (Reported) Ondansetron (Zofran Odt) 4 MG TAB.RAPDIS 1 TAB SL TID PRN NAUSEA Oxycodone HCl/Acetaminophen (Oxycodone-Acetaminophen 5-325) 5 MG-325 MG TABLET 1 TAB PO PRN PAIN (Reported) Testosterone Cypionate 200 MG/ML VIAL 0.8 ML IM Q2W HRT (Reported) Past History Medical History Blood Transfusion Hx: Yes Neurological: NONE EENT: NONE Cardiovascular: hypertension Respiratory: bronchitis Gastrointestinal: diverticulitis Hepatic: NONE Renal: Kidney stones Musculoskeletal: chronic back pain, OsteopeniA Psychiatric: NONE Endocrine: low testosterone Blood Disorders: NONE Cancer(s): NONE SCRAP CHARGER/Reproductive: NONE Surgical History Pertinent Surgical History: hernia repair-inguinal, spinal fusion Psychosocial History Where Do You Live? Home Who Do You Live With? spouse Smoking Status: Former Smoker ETOH Use: occasional use Illicit Drug Use: denies illicit drug use Review of Systems Review of Systems: Constitutional: No fever, sweats or weight loss ENMT: No sore throat Cardiovascular: No chest pain, palpitations or leg swelling Respiratory: No shortness of breath, cough, or sputum or dyspnea on exertion GI: No GERD or bleeding per rectum : No dysuria or hematuria Musculoskeletal: No new muscle weakness, bone or joint pain Skin / Breast: No jaundice, rashes or itching Psychiatric: No history of drug or alcohol abuse no depression or anxiety Hematologic / lymphatic system: No problems with excessive bleeding, bruising, or blood clots Exam & Diagnostic Data Vital Signs and I&O I reviewed Vital Signs Date Time Temp Pulse Resp B/P B/P Pulse O2 O2 Flow FiO2 Mean Ox Delivery Rate 10/02 1431 98.3 66 16 150/84 96 Room Air 10/02 0638 97.9 57 20 142/84 97 /08 0000 98.9 73 20 142/76 /08 0000 98.9 73 20 142/76 /07 2225 98.9 73 20 142/76 96 Room Air 10/01 2200 98.9 63 20 132/74 /07 2000 98.9 63 20 132/74 / 1843 98.9 63 20 132/74 97 Room Air 10/01 1800 98.9 63 20 150/85 I reviewed Intake & Output 10/02 1600 10/02 0810/02 0000 10/01 1600 10/01 0810/01 0000 Intake Total 260 110 480 710 370 220 Output Total 350 500 400 Balance 260 -240 -20 710 370 -180 Intake, IV 200 110 110 130 100 Intake, Oral 60 480 600 240 120 Number 1 Bowel Movements Output, Urine 350 500 400 Physical Exam: Constitutional: pleasant, no acute distress, conversant Eyes: sclera anicteric ENMT: ears and nose atraumatic, moist mucous membranes, good dentition, no lip lesions Neck: Supple, trachea is midline, no cervical or supraclavicular adenopathy and no palpable thyromegaly Cardiovascular: S1, S2, no murmurs, no peripheral edema Respiratory: clear to auscultation with normal respiratory effort and no intercostal retractions GI: abdomen soft, less right upper quadrant tenderness no rebound, nondistended, no palpable hepatosplenomegaly Extremities / lymphatics: symmetrically warm, free range of motion no peripheral edema, no cervical, supraclavicular, axillary, or inguinal adenopathy Musculoskeletal: Normal gait and station, no digital cyanosis, good muscle strength and tone no atrophy, motor grossly 5 out of 5 throughout Skin: no jaundice, no rashes warm, nondiaphoretic, no areas of erythema or induration Psychiatric: mood and affect are appropriate and alert and oriented to person place and time Last 24 Hours of Labs: I reviewed Laboratory Tests 10/02 0626 Chemistry Sodium (137 - 145 mmol/L) 139 Potassium (3.5 - 5.1 mmol/L) 3.8 Chloride (98 - 107 mmol/L) 102 Carbon Dioxide (22 - 30 mmol/L) 29 Anion Gap (5 - 16) 9 BUN (9 - 20 mg/dL) 11 Creatinine (0.7 - 1.2 mg/dL) 0.9 Estimated GFR (>60 ml/min) > 60 BUN/Creatinine Ratio (7 - 25 %) 12.2 Coagulation PT (9.4 - 12.5 SEC) 12.8 H INR (0.90 - 1.17) 1.22 H APTT (25 - 37 SEC) 30 Biliary admission his bilirubin went up as high as 3 then came back down to normal, there was a transient mild elevation in transaminases as well. Assessment/Plan Assessment/Plan Studies I reviewed the CT of the abdomen on PACS myself from when on admission also compared to the one earlier in the week in the ER, both of them show 2 separate tiny calcifications possibly in the cystic duct, there are inflammatory changes in the gallbladder which is slightly dilated hasn't changed in the interval and the adjacent colon is full of diverticula and it is circumferentially inflamed including the mesentery inferior on the other side of the gallbladder My impression is symptomatic gallstones. The story is somewhat typical. While diverticulitis in that area is plausible the transient elevation and then decrease in the LFTs suggest a passage of a gallstone despite the initial ultrasound read, along with that fever he may have had a little bit of cholangitis but anyway while on antibiotics and bowel rest he has improved over the weekend. I am concerned is a significant amount of inflammation around the gallbladder but I feel it prudent to approach this as cholecystitis and try to do a laparoscopic cholecystectomy, with the significant possibility of conversion to open I explained this to him and his . The current standard of care is removal of the gallbladder laparoscopically, preferably not emergently. Once they become symptomatic, gallstones can lead to complications such as cholecystitis, pancreatitis and cholangitis and rarely others. I explained the nature and possibility of retained stones, and rarely, persistent postoperative diarrhea. I illustrated how the stones cause problems and how the anatomy and inflammation can make the surgery more difficult, sometimes requiring an open procedure, and rarely to repair a bile duct injury leading to significant morbidity and even mortality. This in our practice is exceedingly rare, but other more common risks were also discussed such as infection, injury to other surrounding structures such as bowel and blood vessels. We also discussed the potential risks, benefits and alternatives to the procedure and surgery in general, issues that included but were not limited to, anesthetic risks hemorrhage requiring transfusion, the risk of transfusion itself, infection, heart attack, stroke, . I explained the importance of history of smoking as it pertains to surgery, especially with general anesthesia and healing. Problem List: 1. Cholecystitis 2. Elevated bilirubin 3. Acute diverticulitis Consult Acknowledgment - Thank you for your consult request.
[2016-10-03] VITALS: BP 152/82
--- NOTE | 2016-10-03 00:35 | PN- General Surgery ---
See Addendum Subjective Subjective: POC pain controlled, +abd soreness, no n/v/cp/sob/f, tolerating clears, no bm/flatus Objective Vital Signs and I&Os Vital Signs Date Time Temp Pulse Resp B/P B/P Pulse O2 O2 Flow FiO2 Mean Ox Delivery Rate 10/02 1431 98.3 66 16 150/84 96 Room Air 10/02 0638 97.9 57 20 142/84 97 Intake & Output 10/03 0000 10/02 1600 10/02 0000 10/01 1600 Intake Total 260 110 480 710 Output Total 350 500 Balance 260 -240 -20 710 Intake, IV 200 110 110 Intake, Oral 60 480 600 Number 1 Bowel Movements Output, Urine 350 500 Physical Exam: gen: nad card: s1s2 rrr pulm: ctab abd: dsg cdi, ttp, quiet bs ext: calves soft nt bl, alps on Assessment/Plan Assessment/Plan A: POD0 sp lap joel, stable P: clrs- aat in am. Hl once toelrating diet. prn pain meds. oob, ambulate. abx x23h postop. po home meds. will dw attending. Problem List: 1. Cholecystitis Core Measures/Miscellaneous Venous Thromboembolism VTE Risk Factors: Age > 40 VTE Contraindications: No Contraindications VTE Diagnosis: No VTE Type: NONE VTE Confirmed by (Test): NONE Beta Elena Is Beta Elena a Home Med? Yes Antibiotics Is Patient on Antibiotics? Yes
[2016-10-03 02:04] VITALS: BP 128/78
[2016-10-03 04:25] VITALS: BP 128/78
[2016-10-03 06:03] VITALS: BP 148/80
--- NOTE | 2016-10-03 06:53 | PN- Housestaff ---
DO BURGESS,GALLITO 10/03/16 0652: Subjective Follow-up For: Cholecystitis s/p cholecystectomy Diverticulitis Subjective: I saw and examined the patient today morning. He is tolerating clear liquid diet well, still had abdominal pain. Denies passing any gas so far. He was changed to regular diet in the afternoon. He is able to walk to the restroom. Intially he is on 3L of oxygen, taperred to room air. Review of Systems Constitutional: Reports: see HPI. Comments: ROS negative except the above. Objective Last 24 Hrs of Vital Signs/I&O Vital Signs Date Time Temp Pulse Resp B/P B/P Pulse O2 O2 Flow FiO2 Mean Ox Delivery Rate 10/03 0603 98.4 62 22 148/80 99 Room Air 10/03 0425 98.0 58 22 128/78 99 10/03 0204 98.0 68 50 128/78 98 Nasal 3.0L Cannula 10/03 0000 Nasal 2.0L Cannula 10/03 0000 98.0 68 20 152/82 98 Nasal 2.0L Cannula 10/02 1431 98.3 66 16 150/84 96 Room Air Intake & Output 10/03 0800 10/03 0000 10/02 1600 Intake Total 440 260 Output Total Balance 440 260 Intake, IV 200 200 Intake, Oral 240 60 Physical Exam General Appearance: Alert, Oriented X3, Cooperative, No Acute Distress Skin: No Rashes, No Breakdown HEENT: Atraumatic, PERRLA, EOMI Neck: Supple Cardiovascular: Normal S1, Normal S2 Lungs: Clear to Auscultation, Normal Air Movement Abdomen: Normal Bowel Sounds, distended, tenderness present in the right lower quadrant region. tenderness in the RUQ. Neurological: Normal Speech, Strength at 5/5 X4 Ext, Normal Tone, Sensation Intact Extremities: No Clubbing, No Cyanosis, No Edema Current Medications: Current Medications Sig/Fanny Start time Last Medication Dose Route Stop Time Status Admin Acetaminophen 650 MG Q4P PRN 10/02 2215 DC PO Acetaminophen 650 MG Q6P PRN 10/02 2215 AC PO Acetaminophen 1,000 MG .STK-MED ONE 10/02 1723 DC IV 10/02 1724 Acetaminophen 650 MG Q4P PRN 09/29 1045 DC PO Ceftriaxone Sodium 1,000 MG DAILY 10/03 1000 AC IV 10/03 1001 Ceftriaxone Sodium 1,000 MG DAILY 09/29 1000 DC 10/02 IV 0929 Dextrose/Sodium 1,000 ML .Q10H 10/02 2215 AC 10/02 Chloride IV 2249 Fentanyl Citrate 250 MCG .STK-MED ONE 10/02 1725 DC IM 10/02 1726 Fentanyl Citrate 250 MCG .STK-MED ONE 10/02 1722 DC IM 10/02 1723 Heparin Sodium 5,000 UNIT Q8 10/03 0600 CAN (Porcine) SC Heparin Sodium 5,000 UNIT Q8 10/03 0600 AC 10/03 (Porcine) SC 0553 Heparin Sodium 5,000 UNIT Q8 09/28 2200 DC 10/01 (Porcine) SC 2121 Hydromorphone HCl 0.5 MG Q3P PRN 10/02 221 DC IV Hydromorphone HCl 0.5 MG Q3P PRN 09/28 1815 DC 09/30 IV 1112 Ketorolac 30 MG .STK-MED ONE 10/02 1723 DC Tromethamine IM 10/02 1724 Lisinopril 5 MG DAILY 10/03 1000 AC PO Loperamide HCl 2 MG Q6P PRN 09/30 1200 DC 10/01 PO 1604 Lorazepam 0 Q1P PRN 09/28 1945 DC 09/29 IV 0123 Melatonin 5 MG AT BEDTIME PRN 10/02 2230 AC PO Melatonin 5 MG AT BEDTIME 10/02 0100 DC 10/02 PO 0126 Metronidazole 500 MG IQ8 10/03 0000 AC 10/03 N/A 1 UNIT IV 10/03 0859 0053 Metronidazole 500 MG IQ8 09/29 0000 DC 10/02 N/A 1 UNIT IV 1653 Midazolam HCl 2 MG .STK-MED ONE 10/02 1722 DC IM 10/02 1723 Morphine Sulfate 2 MG Q2P PRN 10/02 2215 AC 10/03 IV 0605 Morphine Sulfate 4 MG Q2P PRN 10/02 2215 AC 05 IV 2243 Ondansetron HCl 4 MG Q6P PRN 10/02 2215 DC IV Ondansetron HCl 4 MG Q6P PRN 10/02 2215 AC IV Ondansetron HCl 4 MG Q6P PRN 09/28 1815 DC IV Oxycodone/ 1 TAB Q4P PRN 10/02 221 AC Acetaminophen PO Oxycodone/ 2 TAB Q4P PRN 10/02 2215 AC Acetaminophen PO Patient Medication 1 ED .K-MED ONE 10/02 1404 [facility] ED 10/02 1405 Last 24 Hrs of Lab/Heath Results Last 24 Hrs of Labs/Mics: Laboratory Tests 10/03/16 1056: Anion Gap 12, Estimated GFR > 60, BUN/Creatinine Ratio 13.3 10/03/16 0612: CBC w Diff NO MAN DIFF REQ, RBC 3.85 L, MCV 91.8, MCH 31.3 H, RDW 13.9, MPV 7.2 L, Gran % 81.9 H, Lymphocytes % 9.1 L, Monocytes % 8.8, Eosinophils % 0.1 , Basophils % 0.1, Absolute Granulocytes 5.4, Absolute Lymphocytes 0.6 L, Absolute Monocytes 0.6, Absolute Eosinophils 0, Absolute Basophils 0, PUBS MCHC 34.1 Assessment/Plan Assessment: 61-year-old gentleman with PMH of HTN, HLD, Male hypogonadism on testosterone replacement therapy and aromatase inhibitor (anastrozole) current admission for four-day history of right sided abdominal pain with radiation to the flank and subjective chills. He was discharged to home on oral ciprofloxacin/flagyl but returned 24 hours later with worsening abdominal pain and fever. CT abdomen/ pelvis demonstrated acute diverticulitis. Abdominal X-ray was within normal limits. Diverticulitis He had a history of diverticulosis/diverticulitis seen in the ED the day prior to admission and diagnosed with diverticulitis via CT/US imaging. He was discharged to home on oral ciprofloxacin/flagyl but returned 24 hours later with worsening abdominal pain and fever. Patient meets criteria for sepsis by temperature, leukocytosis, and active infection. Last colonoscopy on 03/11/[address] Pride that identified diverticulosis and was otherwise within normal limits. Clinically patient continues to have an atypical presentation of diverticulitis in the right colon with associated sepsis. * Antibiotics for a total of 14days. * Started on oral after morning dose of ceftriaxone and flagyl with cipro 500mg BID, flagyl 500mg TID - day 10/08. * Gastroenterology on board - appreciated their recommendations. Cholecystitis s/p lap cholecystectomy Abd Usg on 09/27/16 demonstrated enlarged echogenic liver consistent with hepatic steatosis and a hypoechoic mass and a distended gallbladder. HIDA demonstrated an absent gallbladder suggestive of cholecystitis. MRCP did not identify any choleangitis. * underwent cholecystectomy yesterday - tolerated procedure well * Started on diet today. * Pain control with Percocet and morphine. Heavy alcohol consumption Patient admits to drinking one beer and 1-2 shots each day. * CIWA protocol - scoring 0 * Dicontinued Ativan Low Testosterone / Osteopenia * Anastrozole 1mg PO Daily (ON HOLD) Chronic Low Back Pain( Dr. Dennis of [place]): On Meloxicam 15mg and Percocet PO TID at home Hypertension:Lisinopril 5mg PO Daily Pain Plan-Acetaminophen/Morphine/Dilaudid Bowel Regimen-Senna/Miralax Diet-NPO DVT PPx-Subcutaneous Heparin Code Status-FULL CODE Problem List: 1. Acute diverticulitis 2. Elevated bilirubin 3. Cholecystitis 4. S/P cholecystectomy Pain Ratin Pain Location: right upper and lower quadrant Pain Goal: Pain 4 or less Pain Plan: percocet and morphine Tomorrow's Labs & Rationales: bep and LFT's post op KIEL HEWITT MD 10/03/16 1242: Attending MD Review Statement Attending Statement Attending MD Statement: examined this patient, discuss w/resident/PA/TURBINE OPERATOR, agreed w/resident/PA/TURBINE OPERATOR, reviewed EMR data (avail), discussed with nursing, discussed with case mgmt, amended to note Attending Assessment/Plan: Patient seen and examined. Resting comfortably not in any acute distress. No events overnight. Recommendations reported from laparoscopic cholecystectomy yesterday. He however reports some dizziness with ambulation today. He reports lethargy. On Examination abdomen is soft with mild tenderness in the right upper quadrant. No rebound. No guarding. Recommendations: -Transition to oral antibiotic therapy. Complete 14 days of antibiotic therapy. -Gastroenterology follow-up as an outpatient. -Anticipate discharge in the morning. KIEL HEWITT MD 10/03/16 1242: Attending MD Review Statement Attending Statement Attending Statement: examined this patient, discuss w/resident/PA/TURBINE OPERATOR, agreed w/resident/PA/TURBINE OPERATOR, reviewed EMR data (avail), discussed with nursing, discussed with case mgmt, amended to note Attending Assessment/Plan: Patient seen and examined. Resting comfortably not in any acute distress. No events overnight. Recommendations reported from laparoscopic cholecystectomy yesterday. He however reports some dizziness with ambulation today. He reports lethargy. On Examination abdomen is soft with mild tenderness in the right upper quadrant. No rebound. No guarding. Recommendations: -Transition to oral antibiotic therapy. Complete 14 days of antibiotic therapy. -Gastroenterology follow-up as an outpatient. -Anticipate discharge in the morning.
[2016-10-03 08:05] LABS: ABSOLUTE BASOPHIL COUNT 0 /CUMM (0.0-0.2); ABSOLUTE EOSINOPHIL COUNT 0 /CUMM (0.0-0.7); ABSOLUTE GRANULOCYTE CT 5.4 /CUMM (1.4-6.5); ABSOLUTE LYMPH COUNT 0.6 /CUMM (1.2-3.4); ABSOLUTE MONOCYTE COUNT 0.6 /CUMM (0.10-0.60); BASOPHIL % 0.1 % (0.0-2.0); EOSINOPHIL % 0.1 % (0-5); GRANULOCYTE % 81.9 % (42.2-75.2); HEMATOCRIT 35.4 % (42-52); MEAN CORPUSCULAR HGB 31.3 PG (27.0-31.0); MEAN CORPUSCULAR HGB CONC 34.1 G/DL (33.0-37.0); MEAN CORPUSCULAR VOLUME 91.8 FL (80.0-94.0); MEAN PLATELET VOLUME 7.2 FL (7.4-10.4); PLATELET COUNT 273 /CUMM (130-400); RBC DISTRIBUTION WIDTH 13.9 % (11.5-14.5); RED BLOOD CELL CT 3.85 /CUMM (4.70-6.10); WHITE BLOOD CELL COUNT 6.6 /CUMM (4.8-10.8)
--- NOTE | 2016-10-03 08:08 | PN- General Surgery ---
Subjective Subjective: No complaints. Feels better. Tolerating clears. Eager to try food. Out of bed without difficulty. No shortness of breath. No dizziness. No chest pains. Voidng well. No flatus. Objective Vital Signs and I&Os Vital Signs Date Time Temp Pulse Resp B/P B/P Pulse O2 O2 Flow FiO2 Mean Ox Delivery Rate 10/03 0603 98.4 62 22 148/80 99 Room Air 10/03 0425 98.0 58 22 128/78 99 10/03 0204 98.0 68 50 128/78 98 Nasal 3.0L Cannula 10/03 0000 Nasal 2.0L Cannula 10/03 0000 98.0 68 20 152/82 98 Nasal 2.0L Cannula 10/02 1431 98.3 66 16 150/84 96 Room Air Intake & Output 10/03 1600 10/03 0800 10/03 0000 10/02 1600 10/02 0800 10/02 0000 Intake Total 1760 440 260 110 480 Output Total 350 500 Balance 1760 440 260 -240 -20 Intake, IV 800 200 200 110 Intake, Oral 960 240 60 480 Output, Urine 350 500 Physical Exam: General - alert & oriented x 3. comfortable. no acute distress. Lungs - clear bilaterally. no w/r/r. Cardiac - s1s2. reg. Abdomen - soft. dressings c/d/i. al-incisional tenderness. Extremities - warm bilaterally. no c/c/e. calves soft and nontender. Assessment/Plan Assessment/Plan This 61 year old male with history of diverticulitis is POD#1 s/p lap joel tolerating clears. try fulls. advance as tolerated al-operative antibiotics oob/ambulationg percocet prn pain control hep sc - dvt ppx d/c planning will d/w Core Measures/Miscellaneous Venous Thromboembolism VTE Risk Factors: Age > 40 VTE Contraindications: No Contraindications VTE Diagnosis: No VTE Type: NONE VTE Confirmed by (Test): NONE Beta Elena Is Beta Elena a Home Med? Yes Antibiotics Is Patient on Antibiotics? Yes
--- NOTE | 2016-10-03 13:07 | Patient Discharge Instructions ---
Discharge Instructions General Discharge Information You were seen/treated for: Cholecystitis Diverticulitis You had these procedures: Lap cholecystectomy Watch for these problems: any sudden increase in abdominal pain, nausea, vomiting, fever, chills needs immediate medical attention Any painless bleeding, sudden severe abdominal pain. Special Instructions: Please follow up with your PCP (Dr. Bolden) in a week Please follow up with Dr. Acosta in a week Please follow up with in a week Diet Continue normal diet: No Recommended Diet: Low Fat Activity Full Activity/No Limits: Yes Activity Self Limited: Yes Acute Coronary Syndrome Inclusion Criteria At DC or during hospital stay patient has or had the following: ACS DIAGNOSIS No Discharge Core Measures Meds if any: Prescribed or Continued at Discharge Meds if any: NOT Prescribed or Continued at Discharge Congestive Heart Failure Inclusion Criteria At DC or during hospital stay patient has or had the following: CHF DIAGNOSIS No Discharge Core Measures Meds if any: Prescribed or Continued at Discharge Meds if any: NOT Prescribed or Continued at Discharge Cerebrovascular accident Inclusion Criteria At DC or during hospital stay patient has or had the following: CVA/TIA Diagnosis No Discharge Core Measures Meds if any: Prescribed or Continued at Discharge Meds if any: NOT Prescribed or Continued at Discharge Venous thromboembolism Inclusion Criteria VTE Diagnosis No VTE Type NONE VTE Confirmed by (Test) NONE Discharge Core Measures - Per Current guidelines, there needs to be overlap - treatment for the first 5 days of Warfarin therapy. - If discharged on Warfarin prior to 5 days of - overlap therapy, the patient will need to be - assessed for post discharge needs including - *Post discharge parental anticoagulation - *Warfarin and/or parental anticoagulation education - *Follow up date to check INR post discharge At least 5 days overlap therapy as Inpatient No Meds if any: Prescribed or Continued at Discharge Note: Overlap Therapy is Warfarin and Anticoagulant Meds if any: NOT Prescribed or Continued at Discharge
[2016-10-03 14:14] VITALS: BP 136/80
[2016-10-03 22:49] VITALS: BP 147/84
[2016-10-04 07:00] VITALS: BP 129/75
--- NOTE | 2016-10-04 07:17 | PN- General Surgery ---
Subjective Subjective: No complaints. Tolerating diet. Pain controlled. Anticipates discharge to home today. Objective Vital Signs and I&Os Vital Signs Date Time Temp Pulse Resp B/P B/P Pulse O2 O2 Flow FiO2 Mean Ox Delivery Rate 10/04 699 98.0 55 18 129/75 97 Room Air 10/03 2249 98.2 67 20 147/84 95 Room Air 10/03 1414 97.7 68 22 136/80 97 Room Air 10/03 1316 97 Room Air 10/03 1110 Room Air Room Air 10/03 08 97 Room Air 10/03 08 97 Room Air Intake & Output 10/04 0810/04 0000 10/03 1600 10/03 0800 10/03 0000 10/02 1600 Intake Total 120 1000 1760 440 260 Output Total 949 699 7163 Balance -300 -380 -180 1760 440 260 Intake, IV 800 200 200 Intake, Oral 120 1000 960 240 60 Output, Urine 514 370 7474 Physical Exam: General - alert & oriented x 3. comfortable. no acute distress. Abdomen - soft. expected al-incisional tenderness. dressings c/d/i. Assessment/Plan Assessment/Plan This 61 year old male with history of diverticulitis is POD#2 s/p lap joel tolerating regular diet al-operative antibiotics completed. no further antibiotics needed per oob/ambulationg percocet prn pain control hep sc - dvt ppx d/c home today will d/w prior to his trip to [place] (leaving october 14) all of his questions were answered
--- NOTE | 2016-10-04 07:27 | PN- Housestaff ---
DO BURGESS,GALLITO 10/04/16 0726: Subjective Follow-up For: Post op day #2 cholecystectomy diverticulitis Subjective: I saw and examined the patient today morning He is lying in the bed, reports soreness in the RUQ pain. Better with percocet. He had enough reserves of percocet at home. No overnight events/fevers/chills. Review of Systems Constitutional: Reports: see HPI. Comments: ROS negative except the above Objective Last 24 Hrs of Vital Signs/I&O Vital Signs Date Time Temp Pulse Resp B/P B/P Pulse O2 O2 Flow FiO2 Mean Ox Delivery Rate 10/04 07 98.0 55 18 129/75 97 Room Air 10/03 2249 98.2 67 20 147/84 95 Room Air 10/03 1414 97.7 68 22 136/80 97 Room Air 10/03 1316 97 Room Air 10/03 1110 Room Air Room Air 10/03 0800 97 Room Air 10/03 0800 97 Room Air Intake & Output 10/04 0810/04 0000 10/03 1600 Intake Total 120 1000 Output Total 965 801 6118 Balance -300 -380 -180 Intake, Oral 120 1000 Output, Urine 726 265 8854 Physical Exam General Appearance: Alert, Oriented X3, Cooperative, No Acute Distress Skin: No Rashes, No Breakdown HEENT: Atraumatic, PERRLA Neck: Supple Cardiovascular: Normal S1, Normal S2 Lungs: Clear to Auscultation, Normal Air Movement Abdomen: Normal Bowel Sounds, Soft, No Tenderness Neurological: Normal Speech, Strength at 5/5 X4 Ext, Normal Tone, Sensation Intact Extremities: No Clubbing, No Cyanosis, No Edema Vascular: Pulses Symmetrical Current Medications: Current Medications Sig/Fanny Start time Last Medication Dose Route Stop Time Status Admin Acetaminophen 650 MG Q6P PRN 10/02 2215 AC PO Ceftriaxone Sodium 1,000 MG DAILY 10/03 1000 DC 10/03 IV 10/03 1001 0848 Ciprofloxacin 500 MG BID 10/04 1000 AC PO 10/08 0959 Dextrose/Sodium 1,000 ML .Q10H 10/02 2215 DC 10/02 Chloride IV 2249 Heparin Sodium 5,000 UNIT Q8 10/03 0600 AC 10/04 (Porcine) SC 0547 Lisinopril 5 MG DAILY 10/03 1000 AC 10/03 PO 0848 Melatonin 5 MG AT BEDTIME PRN 10/02 2230 AC PO Metronidazole 500 MG TID 10/03 2200 AC 10/03 PO 2214 Metronidazole 500 MG IQ8 10/03 0000 DC 10/03 N/A 1 UNIT IV 10/03 0859 0848 Morphine Sulfate 2 MG Q3P PRN 10/03 1000 AC IV Morphine Sulfate 2 MG Q2P PRN 10/02 2215 DC 10/03 IV 0855 Morphine Sulfate 4 MG Q2P PRN 10/02 2215 DC 10/02 IV 2243 Ondansetron HCl 4 MG Q6P PRN 10/02 2215 AC IV Oxycodone/ 1 TAB Q4P PRN 10/02 2215 DC Acetaminophen PO Oxycodone/ 2 TAB Q4P PRN 10/02 2215 AC 10/04 Acetaminophen PO 0336 Assessment/Plan Assessment: 61-year-old gentleman with PMH of HTN, HLD, Male hypogonadism on testosterone replacement therapy and aromatase inhibitor (anastrozole) current admission for four-day history of right sided abdominal pain with radiation to the flank and subjective chills. He was discharged to home on oral ciprofloxacin/flagyl but returned 24 hours later with worsening abdominal pain and fever. CT abdomen/ pelvis demonstrated acute diverticulitis. Abdominal X-ray was within normal limits. Diverticulitis He had a history of diverticulosis/diverticulitis seen in the ED the day prior to admission and diagnosed with diverticulitis via CT/US imaging. He was discharged to home on oral ciprofloxacin/flagyl but returned 24 hours later with worsening abdominal pain and fever. Patient meets criteria for sepsis by temperature, leukocytosis, and active infection. Last colonoscopy on 03/11/[address] Pride that identified diverticulosis and was otherwise within normal limits. Clinically patient continues to have an atypical presentation of diverticulitis in the right colon with associated sepsis. * Antibiotics for a total of 14days. * On cipro and flagyl - day 11/08. * Gastroenterology on board - appreciated their recommendations. * Stable for discharge today. Cholecystitis s/p lap cholecystectomy Abd Usg on 09/27/16 demonstrated enlarged echogenic liver consistent with hepatic steatosis and a hypoechoic mass and a distended gallbladder. HIDA demonstrated an absent gallbladder suggestive of cholecystitis. MRCP did not identify any choleangitis. * Post op day #2 cholecystectomy * Tolerating diet well * Pain control with Percocet. Low Testosterone / Osteopenia * Anastrozole 1mg PO Daily (ON HOLD) Chronic Low Back Pain( Dr. Dennis of [place]): On Meloxicam 15mg and Percocet PO TID at home Hypertension:Lisinopril 5mg PO Daily Pain Plan-Acetaminophen/Morphine/Dilaudid Bowel Regimen-Senna/Miralax Diet-NPO DVT PPx-Subcutaneous Heparin Code Status-FULL CODE Problem List: 1. Acute diverticulitis 2. Elevated bilirubin 3. Cholecystitis 4. S/P cholecystectomy Pain Ratin Pain Location: right upper quadrant pain Pain Goal: Pain 4 or less Pain Plan: percocet and tylenol Tomorrow's Labs & Rationales: none KIEL HEWITT MD 10/04/16 0730: Attending MD Review Statement Attending Statement Attending MD Statement: examined this patient, discuss w/resident/PA/CO DIRECTOR, agreed w/resident/PA/CO DIRECTOR, reviewed EMR data (avail), discussed with nursing, discussed with case mgmt, amended to note Attending Assessment/Plan: Patient seen and examined. Resting comfortably and not in any distress. No issues overnight. Denies nausea vomiting. Reports only mild abdominal discomfort on occasion. He is ambulating freely around the unit with no more complaints of dizziness. On examination abdomen is soft with mild tenderness and right upper quadrants. No rebound. No guarding. He is medically stable to be discharged home today. He is to complete his course over the buttock therapy for diverticulitis and follow-up with GI service as an outpatient.
[2016-10-04 07:52] VITALS: BP 129/75
--- NOTE | 2016-10-04 21:40 | Discharge Summary ---
Visit Information Visit Dates Admission Date: 09/28/16 Discharge Date: 10/04/16 Hospital Course Course Attending Physician: KIEL HEWITT M.D Primary Care Physician: SHU BURGESS,MENDOZA Andino Consulting Request: 1 Consulting Specialty: General Surgery Consulting Physician: Reason for Consult: Symptomatic gallstones Consulting Request: 2 Consulting Specialty: Gastroenterology Consulting Physician: Dr.Simon Anand Reason for Consult: Diverticulitis Hospital Course: 61-year-old gentleman with PMH of HTN, HLD, Male hypogonadism on testosterone replacement therapy and aromatase inhibitor (anastrozole) admitted with right sided abdominal pain radiating to falnk and subjective chills. Intially had a ER visit - discharged with cipro and flagyl eventually returned back with worsening of abdominal pain and fever. ER Couse remarkable Vitals - temp 101.1, BP 159/92. Significant labs WBC 12.0, Hgb/Hct 13.5/38.8, T. bili 3.0(up from 1.8 yesterday), Lactic acid normal. Imaging 09/27/16 Abd Usg demonstrated enlarged echogenic liver consistent with hepatic steatosis and a hypoechoic mass and a distended gallbladder. 09/28/16 CT abdomen/pelvis demonstrated acute diverticulitis. Abdominal X-ray was within normal limits. 09/29/16 HIDA scan demonstrated Cholecystitis MRCP - didnt visualize any stones Last colonoscopy on 03/11/[address] Pride that identified diverticulosis and was otherwise within normal limits. Admitted to general medicine floor - the following conditions were addressed Diverticulitis Atypical with right sided abdominal pain, imaging studies consistent with hepatic flexure diverticulitis with pericolonic inflammatory changes. Intially started on ceftriaxone and flagyl IV followed by conversion to ciprofloxacin & flagyl oral for a total of 14days. Cholecystitis s/p lap cholecystectomy HIDA demonstrated an absent gallbladder suggestive of cholecystitis. MRCP did not identify any stones. Tolerated procedure followed by diet well. Low fat diet. Pain control with percocet. Other chronic conditions: Low Testosterone / Osteopenia: Anastrozole 1mg PO Daily (ON HOLD during hospital stay) Chronic Low Back Pain( Dr. Dennis of [place]): On Meloxicam 15mg and Percocet PO TID at home Hypertension:Lisinopril 5mg PO Daily DVT: SC heparin Complications: none Allergies: Coded Allergies: NO KNOWN ALLERGIES (01/10/11) Significant Procedures: Laproscopic cholecystectomy for symptomatic cholelithiasis on 10/02/16. Pertinent Lab Results: Significant labs WBC 12.0, Hgb/Hct 13.5/38.8, T. bili 3.0(up from 1.8 yesterday), Lactic acid normal. Imaging 09/27/16 Abd Usg demonstrated enlarged echogenic liver consistent with hepatic steatosis and a hypoechoic mass and a distended gallbladder. 09/28/16 CT abdomen/pelvis demonstrated acute diverticulitis. Abdominal X-ray was within normal limits. 09/29/16 HIDA scan demonstrated Cholecystitis MRCP - didnt visualize any stones Disposition Summary Disposition Principal Diagnosis: Cholecystis requiring lapcholecystectomy Diverticulitis Additional Diagnosis: Chronic low back pain Low testosterone / osteopenia HTN Discharge Disposition: home or self care Discharge Instructions General Discharge Information Code Status: Full Code Patient's Diet: low fat diet Patient's Activity: Acitivity as tolerated Follow-Up Instructions/Appts: Please follow up with your PCP (Dr. Bolden) in a week Please follow up with Dr. Acosta in a week Please follow up with in a week Medications at Discharge Discharge Medications: Continue taking these medications: Lisinopril (Lisinopril) 5 MG TABLET 1 Tablet ORAL DAILY Qty = 90 Comments: Last Taken: 10/04/16 Time: 0800 Oxycodone HCl/Acetaminophen (Oxycodone-Acetaminophen 5-325) 5 MG-325 MG TABLET 1 Tablet ORAL as needed for PAIN Qty = 84 Comments: Last Taken: 10/04/16 Time: 1200 Meloxicam (Meloxicam) 15 MG TABLET 1 Tablet ORAL DAILY Qty = 90 Comments: NOT GIVEN IN HOSPITAL Anastrozole (Anastrozole) 1 MG TABLET 1 Tablet ORAL DAILY Qty = 90 Comments: NOT GIVEN IN HOSPITAL Folic Acid (Folic Acid) 1 MG TABLET 1 Tablet ORAL DAILY Qty = 90 Comments: NOT GIVEN IN HOSPITAL Cyanocobalamin (Vitamin B-12) 1,000 MCG TABLET 1 Tablet ORAL DAILY Comments: NOT GIVEN IN HOSPITAL [place]-3 Fatty Acids/Fish Oil (Fish Oil 1,000 MG Capsule) 340 MG-1,000 MG CAPSULE 1 Capsule ORAL DAILY Comments: NOT GIVEN IN HOSPITAL Cholecalciferol (Vitamin D3) 1,000 UNIT TABLET 1 Tablet ORAL DAILY Comments: NOT GIVEN IN HOSPITAL Ondansetron (Zofran Odt) 4 MG TAB.RAPDIS 1 Tablet SUBLINGUAL THREE TIMES DAILY as needed for NAUSEA Qty = 10 Ciprofloxacin HCl (Cipro) 500 MG TABLET 1 Tablet ORAL TWICE DAILY Qty = 14 Comments: Last Taken: 10/04/16 Time: 0800 Metronidazole (Flagyl) 500 MG TABLET 1 Tablet ORAL THREE TIMES DAILY Qty = 21 Comments: Last Taken: 10/04/16 Time: 0800 Testosterone Cypionate (Testosterone Cypionate) 200 MG/ML VIAL 0.8 Milliliters INTRAMUSC EVERY 2 WEEKS Qty = 10 Comments: NOT GIVEN IN HOSPITAL Calcium Carbonate/Vitamin D3 (Calcium 500 + D Tablet) 500 MG-400 TABLET 1 Tablet ORAL DAILY Comments: NOT GIVEN IN HOSPITAL Copies To: SHU BURGESS,MENDOZA Andino; JAMES BURGESS,ALMAZ NMonica; STACEY BURGESS,KARISSA Catalan MD Review Statement Documenting Attending: KIEL HEWITT M.D
--- NOTE | 2016-10-06 18:27 | Operative Report ---
Operative/Inv Procedure Report Surgery Date: 10/02/16 Name of Procedure: Laparoscopic cholecystectomy Pre-Operative Diagnosis: Acute cholecystitis Post-Operative Diagnosis: Same, gangrenous Estimated Blood Loss: less than 50ml Surgeon/Professor Of English: Jose Maria Melendrez MD Anesthesia: general endotracheal tube Operative/Procedure Note Note: Patient was positioned supine. After successful induction of general anesthesia, the patient's abdomen was clipped, prepped and draped in the usual sterile fashion. Local anesthetic was injected at the top of the umbilicus and then a curved horizontal incision little over a centimeter was made there with a 15 blade and then deepened to the midline fascia which was incised vertically a little over a centimeter. Both sides were secured with 0 Vicryl stay sutures and then the thin peritoneal layer was entered, 10 mm Moon trocar inserted obliquely to the right, and the gas was turned on to 15 mm. After insufflation and repositioning to reverse Trendelenburg, 3 more dissecting 5 mm trochars were placed in the right subcostal area, first lateral, then mid-subcostal, then subxiphoid. The gallbladder was not visible we had to peel down the omentum and very carefully off the transverse colon which had diverticula here, we knew this preoperatively from the imaging, then after decompressing the gallbladder with a large-bore needle on a large syringe, the gallbladder had gangrenous areas, then the fundus was grasped from the lateral port and retracted up over the edge of the liver and then we dissected out the area of the triangle of Calot while retracting the infundibulum caudally / laterally. First the cystic duct was identified, isolated at the neck, clipped 3 times, divided after the second clip and then in similar fashion the cystic artery was identified medially, dissected and divided. Then the gallbladder was from the liver bed using cautery , the posterior wall was quite necrotic, after separation the gallbladder was then lowered into an Endobag and removed through the umbilical incision. The instruments and then the trochars were removed letting the gas escape. The fascial incision was closed with a figure 8 Vicryl then all 4 skin incisions were closed with interrupted subcuticular 4-0 Monocryl, followed by Mastisol Steri-Strips and Bandaids. Estimated blood loss was minimal, lap and sponge counts were correct, wound expectancy was clean-contaminated, IV fluids crystalloid, complications none, patient tolerated the procedure well and was returned to the recovery room in satisfactory condition.
== END 2016-10-04 11:10 | DRG 854 ==
LOC: ERH 16:40 → 2NB 17:32 → ERHI 17:32 → ENRESERV 19:47 → 2NB 21:02 → ENPENDDIS 10-04 09:33 → 2NB 10-04 11:10
PROVIDERS: Internal Medicine; Internal Medicine Hematology & Oncology; Internal Medicine Interventional Cardiology; Physician Assistant; ADMIT Internal Medicine
PROC: 0FT44ZZ Resection of Gallbladder, Percutaneous Endoscopic Approach (ICD-10-PCS; principal; 2016-10-03)
PROC: 3E0T3BZ Introduction of Anesthetic Agent into Peripheral Nerves and Plexi, Percutaneous Approach (ICD-10-PCS; 2016-10-03)
DX: A41.9 Sepsis, unspecified organism (principal); K81.0 Acute cholecystitis; I10 Essential (primary) hypertension; K57.32 Diverticulitis of large intestine without perforation or abscess without bleeding; Z87.891 Personal history of nicotine dependence; E29.1 Testicular hypofunction; E78.5 Hyperlipidemia, unspecified
CPT/HCPCS: 2NBSP; 74181; 36415; 74000; 74176; 78226; 82436; 87040; 88304; 93005; 96365; A9537; J0131; J0696; J1170; J1644; J1885; J2405; J7042

== ENCOUNTER 2018-01-25 01:46 | Inpatient (IN) | payer OTHER, MEDICARE ==
[~2018-01-25] VITALS: Ht 188 cm; Wt 104.9 kg
[~2018-01-25 01:46] MED LIST changes: +ALLEGRA-D 12 H1 EACH PO; +CALCIUM 500 +1 EAC5 PO; +PRILOSEC OTC20 M1 PO; +PRINIVIL20 M1 PO; +TESTOSTERO200 MG/1 M IM
--- NOTE | 2018-01-25 11:06 | Admission Core Measures ---
Acute Coronary Syndrome (CM) ACS Core Measures Acute Coronary Syndrome Diagnosis No Congestive Heart Failure (NEW) CHF Core Measures Congestive Heart Failure Diagnosis No Cerebrovascular Accident CVA Core Measures CVA/TIA Diagnosis No Venous Thromboembolism VTE Core Damian (View Protocol) VTE Risk Factors Surgery No Mechanical VTE Prophylaxis d/t N/A MechProphylax Ordered No VTE Pharm Prophylaxis d/t NA PharmProphylax ordered Problem List As ranked by this Provider includes Assessment & Plan 1. Diverticulitis HOME MEDS Home Med List Anastrozole 1 MG TABLET 1 TAB PO DAILY CONTROL HORMONES (Reported) Fexofenadine/Pseudoephedrine (Helen-D 12 Hour Tablet) 60 MG-120 MG TAB.ER.12H 1 TAB PO BID ALLERGIES (Reported) Folic Acid 1 MG TABLET 1 TAB PO DAILY VITAMIN SUPPORT (Reported) Lisinopril (Prinivil) 20 MG TABLET 1 TAB PO DAILY BP (Reported) Meloxicam 15 MG TABLET 1 TAB PO DAILY PAIN (Reported) Omeprazole Magnesium (Prilosec Otc) 20 MG TABLET.DR 1 TAB PO DAILY REFLUX ( Reported) Testosterone Cypionate 200 MG/ML VIAL 0.8 ML IM Q2W HRT (Reported)
--- NOTE | 2018-01-25 11:09 | Surg Short-stay <48hrs Dis Sum ---
Visit Information Visit Dates Admission Date: 01/25/18 Discharge Date: 01/28/18 Surgical Short Stay DC Summary Admission Diagnosis: Recurrent diverticulitits Final Diagnosis: DEE s/p robotic sigmoid colectomy Procedure(s): 1. Robotic sigmoid colectomy 2. Rigid sigmoidoscopy Summary/Significant Findings: Patient presented electively for a robotic sigmoidectomy. Patient tolerated procedure without complication. Postoperative course was uncomplicated. He was on an ERAS protocol during his hospital stay. Diet was advanced and tolerated with return of bowel function. By time of discharge he was ambulating, voiding, tolerating a low residue diet and pain was well controlled with oral analgesia. Condition at Discharge: Stable Discharge Disposition: home or self care Discharge instructions provided to patient/family: Yes Post discharge follow-up plan: 1-[address] Burk
--- NOTE | 2018-01-25 11:11 | Operative Report ---
Operative/Inv Procedure Report Surgery Date: 01/25/18 Name of Procedure: 1. Robotic sigmoid colectomy 2. Rigid sigmoidoscopy Pre-Operative Diagnosis: Recurrent diverticulitis Post-Operative Diagnosis: Recurrent sigmoid diverticulitis Estimated Blood Loss: less than 50ml Surgeon/Gis Engineer: Bhargavi Forte DO,Mk Moore PA = 1st assist Anesthesia: general endotracheal tube, block Monitors: Per routine IV Fluids: Refer to anesthesia record Implants: None Urine Output: Referring anesthesia record Drains: None Specimens: Sigmoid colon with stapler donuts 2 Complications: None Condition: Good Operative Indication: This is a 62-year-old gentleman with well-established recurrent diverticulitis. He has had CT scan imaging which is confirmed active disease on more than one occasion. He has had a colonoscopy which is confirmed the presence of diverticulosis and exclude other major colon pathology. Operative/Procedure Note Note: On the day before his operation patient did a bowel prep at home including oral antibiotics and oral laxatives. On the morning before coming to the hospital he drank 12 ounces of apple juice per hour perioperative protocol. Once he was in the preop area he received premedications according to our preop protocol He was taken to the operating room. Placed in supine position on the operating table. He received IV antibiotics. He underwent induction of general anesthesia placement of endotracheal tube and Gore catheter. He was converted to lithotomy position in [facility]. His arms were tucked and he was secured to the bed. The abdomen and perineum were prepped and draped in usual fashion. We gained access to the abdominal cavity using a Veress needle technique. The Veress needle was inserted in the midclavicular line subcostal on the left. The abdomen was insufflated to 50 mmHg. The robotic ports were then placed in the usual fashion. Laparoscopic exploration of the abdominal cavity was carried out. The liver appeared normal. There was a clearly abnormal portion of sigmoid colon which was inflamed with abnormal adhesions to the anterior abdominal wall. The descending colon appear to have diverticulosis but no evidence of inflammation either chronic or acute. The patient was placed in Trendelenburg with right side down. Small bowel was swept out of the pelvis. Next the robot was docked and the abnormal adhesions were taken down with electrocautery and sharp dissection. The rectosigmoid was grasped in held towards the anterior abdominal wall. I incised the peritoneum at the sacral promontory to the right of the rectosigmoid. Through this incision I entered the posterior avascular space of the rectum. I follow this avascular space working medial to laterally. I identified the iliac vessels and the left ureter as well as the left gonadal vessel. Next the inferior mesenteric artery pedicle was identified. As this was not cancer I did not do a high ligation. The vessel was ligated and divided with the robotic vessel sealer distal to the takeoff of some sigmoidal arteries. As I was continued to mobilize a second sigmoidal artery was clearly identified and this was skeletonized and ligated and divided with the vessel sealer. Next I took down the white line of Toldt all the way back to but not including the splenic flexure. I the colon from its retroperitoneal attachments to Gerota's fascia. At this point, I chose my distal site of transection. This was at the rectosigmoid. The mesentery was cleared here using a combination of electrocautery and vessel sealer. Once the wall of the rectosigmoid was visible circumferentially I used a robotic stapler to divide the bowel. This was a 45 mm blue loaded ANKUR stapler. Once the bowel was transected I pulled the bowel down to make sure I had enough length for anastomosis. It appeared to have plenty of length. The pneumoperitoneum was let down. A 5 cm periumbilical extraction incision was made. Wound protector was placed through the incision. We were able to easily pull the transected colon through this incision. I chose my proximal site of transection above the area of obvious chronic inflammation. At the transection site the bowel wall was very supple and the mesentery was soft. I cleared the mesentery here using electrocautery and tying larger vessels with 2-0 Vicryl suture. The bowel was sharply divided and the specimen was removed from the field. A handsewn pursestring was performed with 2-0 Prolene suture. I chose a 28 EEA stapler for the anastomosis. The anvil of the stapler was placed into the lumen of the transected bowel. The pursestring was tied snugly around the PEG of the anvil and the bowel was reduced back into the abdominal cavity. Was placed on the wound protector and we reestablished pneumoperitoneum. Once again the bowel swept out of the pelvis. The EEA sizers and then the EEA stapler were passed transanally. When the stapler was in the appropriate position the spike was advanced. The spike emerged right through the ANKUR staple line slightly to the right. The 2 ends of the stapler laparoscopically mated. The staple was completely closed and allowed to settle for 30 seconds. Stapler was armed fired opened and retrieved. I had 2 excellent stapler donuts on the stapling device. Next the pelvis was filled with sterile saline we were burred and a rigid sigmoidoscopy was performed. The anastomosis appeared patent without bleeding. There was no bubbling at the staple lines. The air was aspirated from the rectum and we prepared for closure. The fascia at the end umbilical extraction site was closed first with a running 0 PDS suture. Subcu was copiously irrigated. We inspected for hemostasis which was very good. The skin was then closed with 3-0 nylon vertical mattress fashion. All the other ports were closed with subcuticular 4-0 Monocryl. The laparoscopic and robotic ports were then sealed with skin glue. A sterile island dressing was placed over the extraction incision. The procedure was concluded. Patient was converted back to supine extubated in the operating room and taken to recovery area in good condition. At the end of this operation all needle sponges and instruments were accounted for. Findings: Sigmoid diverticulitis Pandiverticulosis Discharge Disposition: Same Day Admissions
--- NOTE | 2018-01-25 11:15 | Patient Discharge Instructions ---
Discharge Instructions General Discharge Information You were seen/treated for: Diverticulitits You had these procedures: Robotic sigmoid colectomy Watch for these problems: Bleeding, signs of infection including fever >101, redness, swelling or unusual drainage from incisions, increased pain, nausea, vomiting, or any other concerns. Call Surgeon to remove: Stitches Do not soak the wound: Yes No bath, but you may shower: Yes Other wound care: Keep incisions clean and dry Change midline dressing daily as needed Diet Continue normal diet: No Recommended Diet: Low Residue Activity Full Activity/No Limits: No Activity Self Limited: Yes Pounds, do NOT lift more than: 10 (x 4 weeks) Other activity limits: NO heavy lifting or strenous activity for 4 weeks or until follow up appointment Acute Coronary Syndrome Inclusion Criteria At DC or during hospital stay patient has or had the following: ACS DIAGNOSIS No Discharge Core Measures Meds if any: Prescribed or Continued at Discharge Meds if any: NOT Prescribed or Continued at Discharge Congestive Heart Failure Inclusion Criteria At DC or during hospital stay patient has or had the following: CHF DIAGNOSIS No Discharge Core Measures Meds if any: Prescribed or Continued at Discharge Meds if any: NOT Prescribed or Continued at Discharge Cerebrovascular accident Inclusion Criteria At DC or during hospital stay patient has or had the following: CVA/TIA Diagnosis No Discharge Core Measures Meds if any: Prescribed or Continued at Discharge Meds if any: NOT Prescribed or Continued at Discharge Venous thromboembolism Inclusion Criteria VTE Diagnosis No VTE Type NONE VTE Confirmed by (Test) NONE Discharge Core Measures - Per Current guidelines, there needs to be overlap - treatment for the first 5 days of Warfarin therapy. - If discharged on Warfarin prior to 5 days of - overlap therapy, the patient will need to be - assessed for post discharge needs including - *Post discharge parental anticoagulation - *Warfarin and/or parental anticoagulation education - *Follow up date to check INR post discharge At least 5 days overlap therapy as Inpatient No Meds if any: Prescribed or Continued at Discharge Note: Overlap Therapy is Warfarin and Anticoagulant Meds if any: NOT Prescribed or Continued at Discharge
[2018-01-25 13:00] VITALS: BP 138/88
--- NOTE | 2018-01-25 14:44 | PN- General Surgery ---
Subjective Subjective: Patient reports feeling well. He tolerated clears without nausea or vomiting. He denies passing flatus, bm. Denies ambulating. He offers no complaints. Objective Vital Signs and I&Os Vital Signs Date Time Temp Pulse Resp B/P B/P Pulse O2 O2 Flow FiO2 Mean Ox Delivery Rate 01/25 1459 68 18 128/88 97 Nasal 2.0L Cannula 01/25 1400 98 Nasal 2.0L Cannula 01/25 1300 98.0 74 18 138/88 98 Nasal 2.0L Cannula Intake & Output 01/25 1600 01/25 0800 01/25 0000 01/24 1600 01/24 0801/24 0000 Intake Total 1025 Output Total 650 Balance 375 Intake, IV 225 Intake, Oral 800 Output, Urine 650 Patient 231 lb Weight Weight Bed scale Measurement Method Physical Exam: Gen - resting comfortably in nad 2L O2 via nc Cardiac - S1S2 noted Lungs - CTAB no w/r/r Abd - softly distended, incisions healing well, midline incision mildly saturated with dried blood, faint bs, appropriately tender, no rebound or guarding noted - harris with clear urine Ext - alps in place, no edema or calf pain Current Medications: Current Medications Sig/Fanny Start time Last Medication Dose Route Stop Time Status Admin Acetaminophen 1,000 MG TID 01/25 1400 AC 01/25 PO 1445 Acetaminophen 0 .STK-MED ONE 01/25 722 DC IV Acetaminophen 0 .STK-MED ONE 01/25 715 DC PO Acetaminophen 1,000 MG ONCE 01/25 0000 DC PO 01/25 235 Alvimopan 12 MG BID 01/25 2100 AC PO Alvimopan 12 MG ONCE 01/25 0000 DC PO 01/25 2359 Cefazolin Sodium 2,000 MG ONCE 01/25 0000 DC IV 01/25 2359 Celecoxib 200 MG ONCE 01/25 0000 DC PO 01/25 2359 Dextrose/Sodium 1,000 ML .[id number] 01/25 1315 AC 01/25 Chloride IV 1445 Docusate Sodium 100 MG BID 01/25 2100 AC PO Fentanyl Citrate 0 .STK-MED ONE 01/25 0723 DC .ROUTE Gabapentin 300 MG Q8 01/25 1443 AC PO Gabapentin 0 .STK-MED ONE 01/25 0715 DC PO Gabapentin 600 MG ONCE 01/25 0000 DC PO 01/25 2359 Heparin Sodium 5,000 UNIT Q8 01/25 1400 AC 01/25 (Porcine) SC 1446 Heparin Sodium 0 .STK-MED ONE 01/25 0716 DC (Porcine) .ROUTE Heparin Sodium 5,000 UNIT ONCE 01/25 0000 DC (Porcine) SC 01/25 2359 Hydromorphone HCl 0 .STK-MED ONE 01/25 0722 DC .ROUTE Lisinopril 20 MG DAILY 01/26 900 AC PO Loratadine 10 MG DAILY 01/26 900 AC PO Metronidazole 500 MG ONCE 01/25 0000 DC IV 01/25 2359 Midazolam HCl 0 .STK-MED ONE 01/25 0723 DC .ROUTE Non-Formulary 0 SEE ADMIN CRITERIA 01/25 1315 CAN Medication ANY Omeprazole 20 MG DAILY AC 01/26 07 AC PO Ondansetron HCl 4 MG Q6P PRN 01/25 1315 AC IV Oxycodone HCl 5 MG Q4-6 PRN PRN 01/25 1315 AC PO Oxycodone HCl 10 MG Q4-6 PRN PRN 01/25 1315 AC PO Scopolamine HBr 0 .STK-MED ONE 01/25 1212 DC TOP Scopolamine HBr 0 .STK-MED ONE 01/25 0715 DC TOP Scopolamine HBr 1 PAT ONCE 01/25 0000 DC TOP 01/25 2359 Tramadol HCl 100 MG Q6P PRN 01/25 1315 AC PO Tramadol HCl 50 MG Q6 PRN 01/25 1130 AC PO Assessment/Plan Assessment/Plan 62 M s/p robotic sigmoid colectomy due to recurrent diverticulitis Cont clears, IVF ERAS protocol Pain regimen prn Home meds ordered DVT ppx - alps, hsq, ambulate TRC, encourage IS, CPAP Wean O2 Keep harris in place, likely remove in am Labs in am Core Measures Venous Thromboembolism VTE Risk Factors Surgery No Mechanical VTE Prophylaxis d/t N/A MechProphylax Ordered No VTE Pharm Prophylaxis d/t NA PharmProphylax ordered
[2018-01-25 14:59] VITALS: BP 128/88
[2018-01-25 19:00] VITALS: BP 152/84
[2018-01-25 23:09] VITALS: BP 142/80
[2018-01-26 03:04] VITALS: BP 139/84
[2018-01-26 07:03] VITALS: BP 145/95
[2018-01-26 08:57] LABS: ABSOLUTE BASOPHIL COUNT 0 /CUMM (0.0-0.2); ABSOLUTE EOSINOPHIL COUNT 0.1 /CUMM (0.0-0.7); ABSOLUTE GRANULOCYTE CT 4.4 /CUMM (1.4-6.5); ABSOLUTE LYMPH COUNT 1.3 /CUMM (1.2-3.4); ABSOLUTE MONOCYTE COUNT 0.5 /CUMM (0.10-0.60); BASOPHIL % 0.3 % (0.0-2.0); EOSINOPHIL % 0.8 % (0-5); GRANULOCYTE % 69.5 % (42.2-75.2); HEMATOCRIT 36.3 % (42-52); MEAN CORPUSCULAR HGB 32.4 PG (27.0-31.0); MEAN CORPUSCULAR HGB CONC 34.7 G/DL (33.0-37.0); MEAN CORPUSCULAR VOLUME 93.5 FL (80.0-94.0); MEAN PLATELET VOLUME 7.3 FL (7.4-10.4); PLATELET COUNT 189 /CUMM (130-400); RBC DISTRIBUTION WIDTH 13.9 % (11.5-14.5); RED BLOOD CELL CT 3.88 /CUMM (4.70-6.10); WHITE BLOOD CELL COUNT 6.3 /CUMM (4.8-10.8)
--- NOTE | 2018-01-26 10:26 | PN- Student ---
See Addendum Malissa Bynum 01/26/18 0959: Subjective Subjective: Pt is a 62 y/o M w/ PMH of HTN, GERD, allergies, diverticulitis, and cholecystitis currently on POD#1 s/p robotic sigmoidectomy. Pt complains of dull , 7/10 pain at incisional sites and sharp pains from gas. Pt reports that pain was managed well yesterday. Pt had rectal incontinence last night w/ diarrhea during sleeping and reports diarrhea this morning shortly before exam. Pt is tolerating solid and liquid PO intake well. Pt is on harris catheter; urine is yellow and clear. Pt is using walker when out of bed. Denies all other ROS. Objective Objective: Vitals: normal, stable I/O (24hrs): 660/900 IVF: 600cc PO: 60cc Urine O: 0.36mL/kg/hr Exam: Gen: w/d, w/n, standing next to bed w/ walker in NAD HEENT: PERRL, oral mucosa moist Cardiac: RRR, no M, R, G Lungs: CTA BL Abdomen: +BS, soft, slightly distended, tender to palpation. Extremities: warm, DP/PT pulses 2+ BL, no edema, no pain, no deformity Incisions: Sites are clean, dry, closed, with no erythema and no exudates. No bleeding, no ecchymoses, pt notes pain w/out palpation. Labs: CBC notable for normocytic anemia Chem-7 normal Imaging: No new imaging Assessment/Plan Assessment: Pt is a 62 y/o M w/ PMH of HTN, GERD, allergies, diverticulitis, and cholecystitis currently on POD#1 s/p robotic sigmoidectomy. Pt is stable with acute complaints of abdominal pain and diarrhea. Neuro: administer 100mg tramadol PO Q6P and 1000mg acetaminophen PO TID, add 10mg oxycodone Q6P if pain not managed w/ tramadol and acetaminophen Cardiac: continue PO intake of fluids Lungs: keep on room air GI: discontinue colace : remove harris catheter Heme: continue trending CBC and Chem-7 per 24hr Wound: vaseline as necessary Dispo/other: Continue routine post-op treatment Encourage ambulation as tolerated Educate pt about pain management and diarrhea post-op Sunny Muñoz 01/26/18 636: Subjective Subjective: agree with above d/c entereg stop ivf advance to full liquids for breakfast titrate pain meds home d/c planning
[2018-01-26] MEDS ORDERED: BUPROPION XL150 MG PO (10:47)
[2018-01-26 14:52] VITALS: BP 132/89
[2018-01-26 21:44] VITALS: BP 112/70
[2018-01-27 06:31] VITALS: BP 134/76
--- NOTE | 2018-01-27 08:40 | PN- General Surgery ---
See Addendum Subjective Subjective: Patient was less tolerant of clear liquid diet yesterday but today states that he feels less bloated and had a bowel movement this morning. He is also passing more flatus. He denies chest pain and shortness of breath, he acknowledges some intermittent right shoulder pain. He c/o occasional discomfort to left side of abdomen, no flank pain. No hematuria. He has been ambulating without difficulty. Objective Vital Signs and I&Os Vital Signs Date Time Temp Pulse Resp B/P B/P Pulse O2 O2 Flow FiO2 Mean Ox Delivery Rate 01/27 0821 61 134/76 01/27 0631 97.6 61 20 134/76 97 01/26 2144 97.5 56 20 112/70 96 Room Air 01/26 1452 98.8 55 20 132/89 100 Room Air Intake & Output 01/27 1600 01/27 0800 01/27 0000 01/26 1600 01/26 0800 01/26 0000 Intake Total 240 4200 512 2622 Output Total 500 4209 693 9433 Balance -260 -400 -240 -700 Intake, IV 400 600 Intake, Oral 240 190 98 4966 Number 2 0 Bowel Movements Output, Urine 500 4856 485 4933 Physical Exam: General: Alert and oriented x3, no acute distress Cardiac: RRR, s1s2 Pulm: CTA bilaterally, non-labored respiratory effort Abdomen: SOftly distended, tender to touch in left lower quadrant. Bowel sounds ausculted throughout. Dressing changed, skin edges well approximated without erythema or drainage. Extremities: Moves all extremities, distal sensation intact. Skin warm and well perfused. Bilateral calves soft and non-tender. Assessment/Plan Assessment/Plan This is a 53 year old male, POD 2, s/p robotic assisted sigmoid resection, on ERAS protocol. On post op day 1 was found to be less tolerant of clear liquid diet, noted to have mild abdominal distension and increased belching, no vomitting. This am noted to have bowel movement, loose, with less belching and more flatus. -Advance to full liquid diet this afternoon -Continue ERAS protocol -OOB, incentive spirometry encouraged -DVT ppx: hep sub q, alps -Anticipate dc to home when tolerating diet and potential for ileus is no longer concerning Will discuss plan of care with Dr. Vargas Core Measures Venous Thromboembolism VTE Risk Factors Surgery No Mechanical VTE Prophylaxis d/t N/A MechProphylax Ordered No VTE Pharm Prophylaxis d/t NA PharmProphylax ordered
[2018-01-27 14:40] VITALS: BP 136/77
[2018-01-27 20:00] VITALS: BP 150/90
[2018-01-27 21:51] VITALS: BP 140/90
[2018-01-28 07:32] VITALS: BP 145/86
--- NOTE | 2018-01-28 08:19 | PN- General Surgery ---
See Addendum Subjective Subjective: Patient feels well, pain well controlled, no nausea no vomiting, distention is less, positive bowel movements. He is tolerating breakfast and feels as though he is ready to be discharged home today Objective Vital Signs and I&Os Vital Signs Date Time Temp Pulse Resp B/P B/P Pulse O2 O2 Flow FiO2 Mean Ox Delivery Rate 01/28 0732 98.0 76 18 145/86 99 01/27 2151 140/90 01/28 2000 98.6 62 16 150/90 95 Room Air 01/27 1440 98.1 56 15 136/77 96 Room Air 01/27 0821 61 134/76 Intake & Output 01/28 1600 01/28 0800 01/28 0000 01/27 1600 01/28 0800 01/27 0000 Intake Total 100 810 750 240 Output Total 700 450 500 Balance 100 110 300 -260 Intake, IV 10 Intake, Oral 100 800 750 240 Number 0 2 Bowel Movements Output, Urine 700 450 500 Physical Exam: Well-developed well-nourished no apparent distress. HEENT: Atraumatic, extraocular motion intact Neck: Supple, no lymphadenopathy Respiratory: No respiratory distress Abdomen: Minimal distention. Appropriate left lower quadrant tenderness. Dressings clean dry and intact, incision site is clean dry and intact. Positive bowel sounds. Extremities: No edema, no calf pain Neuro: Alert and oriented x3 Psych: Mood affect normal, normal memory normal judgment. Skin: Warm and dry, no rash on exposed skin Assessment/Plan Assessment/Plan This is a 53 year old male, POD 3, s/p robotic assisted sigmoid resection Tolerating low residual diet Discharge home today with follow-up in 7-10 days Discussed patient who understands and agrees with plan Core Measures Venous Thromboembolism VTE Risk Factors Surgery No Mechanical VTE Prophylaxis d/t N/A MechProphylax Ordered No VTE Pharm Prophylaxis d/t NA PharmProphylax ordered
[2018-01-28 08:21] VITALS: BP 145/86
[2018-01-28] MEDS ORDERED: GABAPENTIN300 M2 PO (08:27)
[2018-01-28] MEDS ORDERED: TRAMADOL HCL50 M1 PO (08:27)
[2018-01-28] MEDS ORDERED: OXYCODONE HCL5 M1 PO (08:27)
== END 2018-01-28 11:14 | DRG 331 ==
LOC: 2NB 01:46 → SDA 01:46 → ENRESERV 11:16 → ENTRNSPT 12:24 → EDTRNSPTSTS 12:39 → EDTRNSPT 12:39 → 2NB 13:03 → CMPTRNSPT 13:11 → ENPENDDIS 01-28 08:33 → 2NB 01-28 11:14
PROVIDERS: Physician Assistant Surgical
PROC: 3E0T3BZ Introduction of Anesthetic Agent into Peripheral Nerves and Plexi, Percutaneous Approach (ICD-10-PCS; principal; 2018-01-25)
PROC: 8E0W4CZ Robotic Assisted Procedure of Trunk Region, Percutaneous Endoscopic Approach (ICD-10-PCS; principal; 2018-01-25)
PROC: 0DTN4ZZ Resection of Sigmoid Colon, Percutaneous Endoscopic Approach (ICD-10-PCS; principal; 2018-01-25)
DX: K57.32 Diverticulitis of large intestine without perforation or abscess without bleeding (principal); I10 Essential (primary) hypertension; K21.9 Gastro-esophageal reflux disease without esophagitis; G47.33 Obstructive sleep apnea (adult) (pediatric); M19.90 Unspecified osteoarthritis, unspecified site; Z98.1 Arthrodesis status; Z90.49 Acquired absence of other specified parts of digestive tract
CPT/HCPCS: 2NSBP; 36415; 36592; 82436; 87086; 88304; 88307; 93005; 93010; J0131; J0690; J1644; J2405; J3490; J7042